=== PATIENT | female | born 1955 | race Caucasian/White ===

== ENCOUNTER 2017-01-18 09:55 | Inpatient (IN) | payer BC, OTHER ==
[2017-01-18] VITALS (9 sets, daily range): BP systolic 82–132; BP diastolic 51–66; PULSE 98–116; RESP 18–20; TEMP 98.3–98.4; O2SAT 96–100
[~2017-01-18] VITALS: Ht 154.9 cm; Wt 62.5 kg
[2017-01-18] MEDS ORDERED: SODIUM CHLOR 0.9% 1000 ML INJ 1,000 ML IV SCH ×2 (10:29→13:14)
[2017-01-18] MEDS ORDERED: SODIUM CHLORIDE 0.9% FLUSH 5 ML FLUSH IV FLUSH PRN (10:30)
[2017-01-18] MEDS ORDERED: SERT-129 PO (10:33)
[2017-01-18] MEDS ORDERED: XANA0.5T2 PO (10:33)
[2017-01-18] MEDS ORDERED: HYDR12.57 PO (10:33)
[2017-01-18] MEDS ORDERED: LISI10TA3 PO (10:33)
[2017-01-18] MEDS ORDERED: CLON1TAB PO (10:33)
[2017-01-18] MEDS ORDERED: PERC10TA27 PO (10:33)
[2017-01-18] MEDS ORDERED: WELLTAB39 PO (10:33)
--- NOTE | 2017-01-18 10:40 | PD ---
HPI Chief Complaint: Altered Mental Status Time Seen by Provider: 10:29 Travel History International Travel<30 days: No Contact w/Intl Traveler<30days: No Traveled to known affect area: No History of Present Illness HPI This is a 61-year-old female with a history of depression, psychosis, chronic pain of the neck and low back, who presents today with complaints of altered sensorium. The patient is a retired pharmacist and she is here with her . states over the last 2 weeks she's become more confused and not acting her normal self. He states that one point she was talking to the TV. She does not recall any of this. The patient is on depression medications as well as pain medication. She did not change any of her doses. She did report that her pain management doctor did start her on nortriptyline however she only took one tablet and then stopped taking it because she didn't like the way it made her feel. The patient denies any fevers, chills. There are no other complaints at the time my examination. 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 She states that she does not abuse Fioricet since being treated several years ago. However, patient does report that she does take Percocet daily. She denies any change of her dose at this point. PFSH Past Medical History ?: Not Social History Alcohol Use: No Tobacco Use: No Substance Use: Yes (former addict) Allergies-Medications (Allergen,Severity, Reaction): Coded Allergies: No Known Allergies (Unverified , 01/18/17) Reported Meds & Prescriptions Reported Meds & Active Scripts Active Reported Lisinopril 10 Mg Tab 10 Mg PO DAILY Percocet (Oxycodone-Acetaminophen) 10-325 mg Tab 1 Tab PO Q6H PRN Xanax Xr 24 HR (Alprazolam) 0.5 Mg Tab 0.5 Mg PO HS Take tablet intact, preferably in the morning. Clonazepam 1 Mg Tab 1 Mg PO DIRECTED Wellbutrin Xl 24 HR (Bupropion HCl) 300 Mg Tab 300 Mg PO DAILY Sertraline (Sertraline HCl) 100 Mg Tab 150 Mg PO DAILY Hydrochlorothiazide 12.5 Mg Cap 12.5 Mg PO DAILY Review of Systems Except as stated in HPI: all other systems reviewed are Neg Eyes: No: Diploplia, Blurred Vision HENT: Positive: Neck Pain, No: Headaches, Lightheadedness Cardiovascular: No: Chest Pain or Discomfort, Palpitations, Irregular Rhythm Respiratory: Positive: Cough (occasional), No: Shortness of Breath Gastrointestinal: No: Nausea, Vomiting, Abdominal Pain Genitourinary: No: Frequency, Dysuria Musculoskeletal: Positive: Pain (chronic neck and back pain), No: Weakness Neurologic: Positive: Syncope (several syncopal episodes), Change in Mentation , No: Weakness, Dizziness, Focal Abnormalities, Headache, Seizures, Sensory Disturbance Psychiatric: Positive: Depression, Other (episodes where she is talking to the TV.), No: Substance Abuse (history of in past) Physical Exam Narrative GENERAL: Well-developed well-nourished female in no acute respiratory distress. She does appear somewhat anxious. SKIN: Focused skin assessment warm/dry. HEAD: Atraumatic. Normocephalic. EYES: Pupils equal and round. No scleral icterus. No injection or drainage. ENT: No nasal bleeding or discharge. Mucous membranes pink and moist. NECK: Trachea midline. Supple. CARDIOVASCULAR: Tachycardic with normal rhythm. No murmur appreciated. RESPIRATORY: No accessory muscle use. Clear to auscultation. Breath sounds equal bilaterally. GASTROINTESTINAL: Abdomen soft, non-tender, nondistended. MUSCULOSKELETAL: No obvious deformities. No clubbing. No cyanosis. No edema. NEUROLOGICAL: Awake and somewhat confused. No obvious cranial nerve deficits. Motor grossly within normal limits. Normal speech. Anxious appearing PSYCHIATRIC: Anxious appearing. Nonpsychotic. Data Data Last Documented VS Vital Signs Date Time Temp Pulse Resp B/P Pulse Ox O2 Delivery O2 Flow Rate FiO2 01/18/17 12:00 100 18 87/52 96 Room Air 01/18/17 09:56 98.4 Orders Electrocardiogram (01/18/17 ) Ammonia (01/18/17 10:29) Complete Blood Count With Diff (01/18/17 10:29) Comprehensive Metabolic Panel (01/18/17 10:29) Creatine Kinase (Cpk) (01/18/17 10:29) Troponin I (01/18/17 10:29) Thyroid Stimulating Hormone (01/18/17 10:29) Urinalysis - C+S If Indicated (01/18/17 10:29) Chest, Single Ap (01/18/17 10:29) Ct Brain W/O Iv Contrast(Rout) (01/18/17 10:29) Blood Glucose (01/18/17 10:29) Ecg Monitoring (01/18/17 10:29) Iv Access Insert/Monitor (01/18/17 10:29) Oximetry (01/18/17 10:29) Sodium Chloride 0.9% Flush (Ns Flush) (01/18/17 10:30) Sodium Chlor 0.9% 1000 Ml Inj (Ns 1000 M (01/18/17 10:29) Drug Screen, Random Urine (01/18/17 10:29) Alcohol (Ethanol) (01/18/17 10:29) Urine Culture (01/18/17 10:55) CKMB (01/18/17 10:36) CKMB% (01/18/17 10:36) Specimen To Be Collected PRN (01/18/17 13:14) Specimen To Be Collected PRN (01/18/17 13:14) Specimen To Be Collected PRN (01/18/17 13:14) Specimen To Be Collected PRN (01/18/17 13:14) Creatinine, Random Urine (01/18/17 13:14) Sodium, Random Urine (01/18/17 13:14) Osmolality, Urine (01/18/17 13:14) Basic Metabolic Panel (Bmp) (01/18/17 13:14) Osmolality,Serum (01/18/17 13:14) Urine For Eosinophils (01/18/17 13:14) Ua Includes Microscopic (01/18/17 13:14) Us Kidney/Renal/Bladder (01/18/17 ) Tylenol (Acetaminophen) (01/18/17 13:14) Salicylates (Aspirin) (01/18/17 13:14) Cbc No Diff, Includes Plts (01/19/17 05:00) Cbc No Diff, Includes Plts (01/20/17 05:00) Cbc No Diff, Includes Plts (01/21/17 05:00) Cbc No Diff, Includes Plts (01/22/17 05:00) Cbc No Diff, Includes Plts (01/23/17 05:00) Cbc No Diff, Includes Plts (01/24/17 05:00) Cbc No Diff, Includes Plts (01/25/17 05:00) Basic Metabolic Panel (Bmp) (01/19/17 05:00) Basic Metabolic Panel (Bmp) (01/20/17 05:00) Basic Metabolic Panel (Bmp) (01/21/17 05:00) Basic Metabolic Panel (Bmp) (01/22/17 05:00) Basic Metabolic Panel (Bmp) (01/23/17 05:00) Basic Metabolic Panel (Bmp) (01/24/17 05:00) Basic Metabolic Panel (Bmp) (01/25/17 05:00) Inpatient Certification (01/18/17 13:14) Bedside Glucose VERÓNICA.Q6H (01/18/17 13:14) Blood Glucose Goal (Criteria) (01/18/17 13:14) Hypoglycemia 51 - 69 Mg/Dl (01/18/17 13:14) Hypoglycemia 50 Mg/Dl Or < (01/18/17 13:14) Notify Dr: Other (01/18/17 13:14) Dextrose 50% In [place] (Vial) Inj (D50w (Vi (01/18/17 13:15) Insulin Human Reg Supp Scale (Novolin R (01/18/17 18:00) Neuro Checks VERÓNICA.Q1H (01/18/17 13:14) Arterial Blood Gas (Abg) (01/18/17 13:14) Urinary Catheter Management VERÓNICA.Q1H (01/18/17 13:14) Code Status (01/18/17 13:14) Activity Bed Rest (01/18/17 13:14) Elevate Head Of Bed (01/18/17 13:14) Diet Npo (01/18/17 Lunch) Sodium Chlor 0.9% 1000 Ml Inj (Ns 1000 M (01/18/17 13:14) Ondansetron Inj (Zofran Inj) (01/18/17 13:15) Albuterol-Ipratropium Neb (Duoneb Neb) (01/18/17 13:15) Pt Request For Service (01/18/17 13:14) Heparin Inj (Heparin Inj) (01/18/17 14:00) Scd Bilateral/Knee High VERÓNICA.BID (01/18/17 13:14) ^ Initiate Protocol (01/18/17 13:14) Instruction (01/18/17 13:14) [facility] [place] [facility] Information (01/18/17 13:15) Chlorhexidine 2% Cloth (Chlorhexidine 2% (01/19/17 04:00) Chlorhexidine 2% Cloth (Chlorhexidine 2% (01/18/17 13:15) [facility]sa Pcr Surveillance (01/18/17 13:14) Docusate Sodium-Senna (Tona-Colace) (01/18/17 21:00) Consult Nephrology (01/18/17 ) Complement C3 (01/18/17 13:14) Complement C4 (01/18/17 13:14) Ceftriaxone Inj (Rocephin Inj) (01/18/17 14:00) Admit Order (Ed Use Only) (01/18/17 13:25) Lactic Acid Sepsis Protocol (01/18/17 13:25) Magnesium (Mg) (01/19/17 06:00) Magnesium (Mg) (01/20/17 06:00) Magnesium (Mg) (01/21/17 06:00) Magnesium (Mg) (01/22/17 06:00) Magnesium (Mg) (01/23/17 06:00) Magnesium (Mg) (01/24/17 06:00) Magnesium (Mg) (01/25/17 06:00) Phosphorus (Po4) (01/19/17 06:00) Phosphorus (Po4) (01/20/17 06:00) Phosphorus (Po4) (01/21/17 06:00) Phosphorus (Po4) (01/22/17 06:00) Phosphorus (Po4) (01/23/17 06:00) Phosphorus (Po4) (01/24/17 06:00) Phosphorus (Po4) (01/25/17 06:00) Creatine Kinase (Cpk) (01/19/17 06:00) Labs Laboratory Tests Test 01/18/17 01/18/17 01/18/17 10:36 10:55 11:35 White Blood Count 11.2 TH/MM3 Red Blood Count 3.39 MIL/MM3 Hemoglobin 9.9 GM/DL Hematocrit 31.3 % Mean Corpuscular Volume 92.1 FL Mean Corpuscular Hemoglobin 29.3 PG Mean Corpuscular Hemoglobin 31.8 % Concent Red Cell Distribution Width 14.5 % Platelet Count 325 TH/MM3 Mean Platelet Volume 8.8 FL Neutrophils (%) (Auto) 80.1 % Lymphocytes (%) (Auto) 10.1 % Monocytes (%) (Auto) 7.9 % Eosinophils (%) (Auto) 1.5 % Basophils (%) (Auto) 0.4 % Neutrophils # (Auto) 8.9 TH/MM3 Lymphocytes # (Auto) 1.1 TH/MM3 Monocytes # (Auto) 0.9 TH/MM3 Eosinophils # (Auto) 0.2 TH/MM3 Basophils # (Auto) 0.0 TH/MM3 CBC Comment DIFF FINAL Differential Comment Sodium Level 131 MEQ/L Potassium Level 5.4 MEQ/L Chloride Level 101 MEQ/L Carbon Dioxide Level 19.7 MEQ/L Anion Gap 10 MEQ/L Blood Urea Nitrogen 83 MG/DL Creatinine 5.61 MG/DL Estimat Glomerular Filtration 8 ML/MIN Rate Random Glucose 98 MG/DL Calcium Level 9.5 MG/DL Total Bilirubin 0.3 MG/DL Aspartate Amino Transf 41 U/L (AST/SGOT) Alanine Aminotransferase 48 U/L (ALT/SGPT) Alkaline Phosphatase 126 U/L Total Creatine Kinase 838 U/L Creatine Kinase MB 24.4 NG/ML Creatine Kinase MB % 2.9 % Troponin I LESS THAN 0.02 NG/ML Total Protein 7.8 GM/DL Albumin 2.8 GM/DL Thyroid Stimulating Hormone 0.009 uIU/ML 3rd Gen Ethyl Alcohol Level LESS THAN 3 MG/DL Urine Color YELLOW Urine Turbidity CLOUDY Urine pH 5.5 Urine Specific [place] 1.021 Urine Protein 100 mg/dL Urine Glucose (UA) NEG mg/dL Urine Ketones NEG mg/dL Urine Occult Blood MOD Urine Nitrite NEG Urine Bilirubin NEG Urine Urobilinogen LESS THAN 2.0 MG/DL Urine Leukocyte Esterase LARGE Urine RBC 47 /hpf Urine WBC /hpf Urine WBC Clumps MANY Urine Squamous Epithelial 26 /hpf Cells Urine Transitional Epithelial 1 /hpf Cells Urine Bacteria MANY /hpf Urine Hyaline Casts 14 /lpf Microscopic Urinalysis Comment CATH-CULTURE IND Ammonia LESS THAN 10 [facility]/L [facility] Medical Decision Making Medical Screen Exam Complete: Yes Emergency Medical Condition: Yes Differential Diagnosis Psychosis versus metabolic derangement versus withdrawal versus substance induced mood disorder Narrative Course 61-year-old female presents with altered mental status progressive over 2 weeks. Patient's 's concern that she may have something serious wrong with her. The patient has a history of chronic pain. She also has a history of thyroid nodule. Patient has multiple electrolyte abnormalities including acute kidney injury. The patient also has hypotension and will be started on Levothroid. She also has a urinary tract infection. Hemoglobin is 9.9. TSH is extremely low which indicates hyperthyroidism. The patient is been discussed with Dr. Dustin James, information technology director, who agrees with admission. We have started her on Rocephin. Blood cultures are pending at this time. Lactic acid has also been ordered. Critical Care Narrative Aggregate critical care time was 45 minutes. Time to perform other separately billable procedures was not included in the critical care time. My time did not include minutes spent treating any other patients simultaneously or on activities that did not directly contribute to the patient's treatment. The services I provided to this patient were to treat and/or prevent clinically significant deterioration that could result in: I provided critical care services requiring my management, as noted below: Chart data review, documentation time, medication orders and management, vital sign assessments/reviewing monitor data, ordering and reviewing lab tests, ordering and interpreting/reviewing x-rays and diagnostic studies, care of the patient and discussion of the patient with the admitting physicians. Diagnosis Primary Impression: Sepsis Additional Impressions: Acute kidney injury Anemia UTI (urinary tract infection) Admitting Information Admitting Physician Requests: Admit René Zhang MD Jan 18, 2017 10:40
--- NOTE | 2017-01-18 11:01 | RADRPT ---
EXAM DATE/TIME: 01/18/2017 10:39 [facility] COMPARISON: No previous studies available for comparison. INDICATIONS : Syncope. MEDICAL HISTORY : None. SURGICAL HISTORY : None. ENCOUNTER: Initial ACUITY: 1 day PAIN SCORE: 0/10 LOCATION: Bilateral chest FINDINGS: A single view of the chest demonstrates the lungs to be symmetrically aerated without evidence of mas s, infiltrate or effusion. The cardiomediastinal contours are unremarkable. Osseous structures are intact. CONCLUSION: Normal examination. Addison James Jr., MD on January 18, 2017 at 11:00 Board Certified Radiologist. This report was verified electronically.
[2017-01-18 11:20] LABS: AUTOMATED NEUTROPHIL # 8.9 TH/MM3 (1.8-7.7); BASOPHIL % 0.4 % (0.0-2.0); EOSINOPHIL # 0.2 TH/MM3 (0-0.4); EOSINOPHIL % 1.5 % (0.0-4.0); HEMATOCRIT 31.3 % (35.0-46.0); HEMO FLAGS DIFF FINAL; LYMPH % 10.1 % (9.0-44.0); LYMPHOCYTE # 1.1 TH/MM3 (1.0-4.8); MEAN CELL VOLUME 92.1 FL (80.0-100.0); MEAN CORPUSCULAR HEMOGLOBIN 29.3 PG (27.0-34.0); MEAN CORPUSCULAR HGB CONC 31.8 % (32.0-36.0); MONO % 7.9 % (0.0-8.0); NEUT % 80.1 % (16.0-70.0); PLATELET COUNT 325 TH/MM3 (150-450); RED BLOOD COUNT 3.39 MIL/MM3 (4.00-5.30); RED CELL DISTRIBUTION WIDTH 14.5 % (11.6-17.2); WHITE BLOOD COUNT 11.2 TH/MM3 (4.0-11.0)
--- NOTE | 2017-01-18 11:24 | RADRPT ---
EXAM DATE/TIME: 01/18/2017 11:04 [facility] COMPARISON: No previous studies available for comparison. INDICATIONS : Altered mental status. RADIATION DOSE: 56.77 CTDIvol (mGy) MEDICAL HISTORY : None SURGICAL HISTORY : None. ENCOUNTER: Initial ACUITY: 1 day PAIN SCALE: 0/10 LOCATION: cranial TECHNIQUE: Multiple contiguous axial images were obtained of the head. Using automated exposure control and adj ustment of the mA and/or kV according to patient size, radiation dose was kept as low as reasonably a chievable to obtain optimal diagnostic quality images. DICOM format image data is available electro nically for review and comparison. FINDINGS: CEREBRUM: The ventricles are normal for age. No evidence of midline shift, mass lesion, hemorrhage or acute in farction. No extra-axial fluid collections are seen. POSTERIOR FOSSA: The cerebellum and brainstem are intact. The 4th ventricle is midline. The cerebellopontine angle i s unremarkable. EXTRACRANIAL: The visualized portion of the orbits is intact. SKULL: The calvaria is intact. No evidence of skull fracture. CONCLUSION: Normal examination. Addison James Jr., MD on January 18, 2017 at 11:19 Board Certified Radiologist. This report was verified electronically.
[2017-01-18 11:37] LABS: BACTERIA, URINE MANY /hpf; BLOOD, URINE MOD (NEG); GLUCOSE,URINE NEG (NEG); HYALINE CAST, URINE 14 /lpf (RARE); KETONE, URINE NEG (NEG); NITRITE,URINE NEG (NEG); PH, URINE 5.5 (5.0-8.5); SQUAMOUS EPITHELIAL CELL URINE 26 /hpf (0-5); TRANSITIONAL EPI CELLS, URINE 1 /hpf; URINE COLOR YELLOW (YELLW/STRAW)
[2017-01-18 11:38] LABS: COMMENT (UR) CATH-CULTURE IND; CULTURE IF INDICATED CATH CULTURE IND
[2017-01-18 11:39] LABS: ALT (GPT) 48 U/L (10-53); ANION GAP 10 MEQ/L (5-15); AST (GOT) 41 U/L (15-37); BICARBONATE 19.7 MEQ/L (21.0-32.0); BLOOD UREA NITROGEN 83 MG/DL (7-18); CHLORIDE 101 MEQ/L (98-107); GLOMERULAR FILTRATION RATE 8 ML/MIN (>89); POTASSIUM 5.4 MEQ/L (3.5-5.1); SODIUM (NA) 131 MEQ/L (136-145)
[2017-01-18 11:45] LABS: ALKALINE PHOSPHATASE 126 U/L (45-117); CREATINE KINASE 838 U/L (26-192); TOTAL BILIRUBIN ADULT 0.3 MG/DL (0.2-1.0)
[2017-01-18 11:59] LABS: CKMB 24.4 NG/ML (0.5-3.6)
--- NOTE | 2017-01-18 12:37 | EKG ---
Date Performed: 01/18/2017 Time Performed: 10:31:03 PTAGE: 61 years EKG: SINUS TACHYCARDIA WITH SHORT ID INTERVAL ABNORMAL RHYTHM ECG NO PREVIOUS TRACING DOCTOR: Thien Curry Interpretating Date/Time 01/18/2017 12:35:23
[2017-01-18] MEDS ORDERED: MISCELLANEOUS NURSING INFORMATION XX SCH (13:15)
[2017-01-18] MEDS ORDERED: CHLORHEXIDINE GLUCONATE 2 % 1 PACK (2 CLOTHS) TOP PRN (13:15)
[2017-01-18] MEDS ORDERED: RESP: ALBUTEROL 2.5 MG/IPRATROPIUM 0.5 MG NEB (PRN) INH (13:15)
[2017-01-18] MEDS ORDERED: DEXTROSE 50% IN WATER 50 ML VIAL(D50) IV PUSH PRN (13:15)
[2017-01-18] MEDS ORDERED: ONDANSETRON HCL 4 MG/2 ML VIAL IV PRN (13:15)
--- NOTE | 2017-01-18 13:36 | HHI.HP ---
HPI Service Critical Care Medicine Primary Care Physician Reginald Borges MD Admission Diagnosis SEPSIS, Acute kidney injury, hyperthyroidism, anemiam, uti Diagnosis: Travel History International Travel<30 Days: No Contact w/Intl Traveler <30 Da: No Traveled to Known Affected Are: No History of Present Illness acute renal failure Past Family Social History Allergies: Coded Allergies: No Known Allergies (Unverified , 01/18/17) Physical Exam Vital Signs Vital Signs Date Time Temp Pulse Resp B/P Pulse Ox O2 Delivery O2 Flow Rate FiO2 01/18/17 12:00 100 18 87/52 96 Room Air 01/18/17 11:15 110 18 89/52 98 Room Air 01/18/17 10:33 112 18 82/51 97 Room Air 01/18/17 10:21 119 20 100 Room Air 01/18/17 09:56 98.4 125/59 Room Air Laboratory Laboratory Tests Test 01/18/17 01/18/17 01/18/17 10:36 10:55 11:35 White Blood Count 11.2 Red Blood Count 3.39 Hemoglobin 9.9 Hematocrit 31.3 Mean Corpuscular Volume 92.1 Mean Corpuscular Hemoglobin 29.3 Mean Corpuscular Hemoglobin 31.8 Concent Red Cell Distribution Width 14.5 Platelet Count 325 Mean Platelet Volume 8.8 Neutrophils (%) (Auto) 80.1 Lymphocytes (%) (Auto) 10.1 Monocytes (%) (Auto) 7.9 Eosinophils (%) (Auto) 1.5 Basophils (%) (Auto) 0.4 Neutrophils # (Auto) 8.9 Lymphocytes # (Auto) 1.1 Monocytes # (Auto) 0.9 Eosinophils # (Auto) 0.2 Basophils # (Auto) 0.0 CBC Comment DIFF FINAL Differential Comment Sodium Level 131 Potassium Level 5.4 Chloride Level 101 Carbon Dioxide Level 19.7 Anion Gap 10 Blood Urea Nitrogen 83 Creatinine 5.61 Estimat Glomerular Filtration 8 Rate Random Glucose 98 Calcium Level 9.5 Total Bilirubin 0.3 Aspartate Amino Transf 41 (AST/SGOT) Alanine Aminotransferase 48 (ALT/SGPT) Alkaline Phosphatase 126 Total Creatine Kinase 838 Creatine Kinase MB 24.4 Creatine Kinase MB % 2.9 Troponin I LESS THAN 0.02 Total Protein 7.8 Albumin 2.8 Thyroid Stimulating Hormone 0.009 3rd Gen Ethyl Alcohol Level LESS THAN 3 Urine Color YELLOW Urine Turbidity CLOUDY Urine pH 5.5 Urine Specific [place] 1.021 Urine Protein 100 Urine Glucose (UA) NEG Urine Ketones NEG Urine Occult Blood MOD Urine Nitrite NEG Urine Bilirubin NEG Urine Urobilinogen LESS THAN 2.0 Urine Leukocyte Esterase LARGE Urine RBC 47 Urine WBC Urine WBC Clumps MANY Urine Squamous Epithelial 26 Cells Urine Transitional Epithelial 1 Cells Urine Bacteria MANY Urine Hyaline Casts 14 Microscopic Urinalysis Comment CATH-CULTURE IND Ammonia LESS THAN 10 Date/Time Procedure Status Source Growth 01/18/17 10:55 Urine Culture Received Urine Catheterized Urine Pending Result Diagram: 01/18/17 1036 01/18/17 1036 Héctor Joe MD Jan 18, 2017 13:36
[2017-01-18 14:28] LABS: ACETAMINOPHEN LESS THAN 2.0 MCG/ML (10.0-30.0); ANION GAP 10 MEQ/L (5-15); BICARBONATE 17.5 MEQ/L (21.0-32.0); BLOOD UREA NITROGEN 77 MG/DL (7-18); CHLORIDE 110 MEQ/L (98-107); GLOMERULAR FILTRATION RATE 10 ML/MIN (>89); POTASSIUM 5.5 MEQ/L (3.5-5.1); SODIUM (NA) 137 MEQ/L (136-145)
[2017-01-18 14:59] LABS: BLOOD GAS BASE EXCESS -9.3 mmol/L (-2-2); BLOOD GAS CARBOXYHEMOGLOBIN 0.9 % (0-4); BLOOD GAS HCO3 15 mmol/L (22-26); BLOOD GAS METHEMOGLOBIN 0.9 % (0-2); BLOOD GAS O2 HGB SATURATION 95 % (90-100); BLOOD GAS OXYGEN CONTENT 16.2 Vol % (12.0-20.0); BLOOD GAS PCO2 29 mmHg (38-42); BLOOD GAS PO2 88 mmHG (61-120); BLOOD GAS TOTAL HGB 12.2 G/DL (12.0-16.0); CRITICAL VALUE YES; DRAW SITE RT RADIAL; FIO2 21 %; NUMBER OF ARTERIAL PUNCTURES 1; OXYGEN DEVICE ROOM AIR; STAT YES; TEMP CORR TO 98.6; ULNAR PULSE PRESENT
[2017-01-18] MEDS ORDERED: TERBUTALINE INJ 1 MG/ML AMP SQ PRN (15:00)
[2017-01-18] MEDS ORDERED: NOREPINEPHRINE-DEXTROSE DRIP 250 ML IV SCH (15:00)
[2017-01-18] MEDS: cefTRIAXone INJ 1,000 MG in SODIUM CHLORIDE 0.9% INJ 100 ML IV SCH (15:59)
[2017-01-18] MEDS: HEPARIN SODIUM - SQ 10,000 UNITS/ML VIAL SQ SCH (16:00)
[2017-01-18] MEDS ORDERED: SODIUM CHLOR 0.9% 1000 ML INJ 1,000 ML IV ONE ×2 (16:45→17:00)
--- NOTE | 2017-01-18 16:45 | HHI.HP ---
[facility] Service Critical Care Medicine Primary Care Physician Reginald Borges MD Admission Diagnosis SEPSIS, Acute kidney injury, hyperthyroidism, anemiam, uti Diagnosis: (1) Acute kidney failure Diagnosis: Principal (2) Hypotension Diagnosis: Principal (3) Sepsis Diagnosis: Principal (4) UTI (urinary tract infection) Diagnosis: Principal (5) Hyperkalemia Diagnosis: Principal (6) Rhabdomyolysis Diagnosis: Principal (7) Suppressed TSH Diagnosis: Principal (8) Acute psychosis Diagnosis: Principal (9) Anemia Diagnosis: Secondary (10) Depression Diagnosis: Secondary (11) Proteinuria Diagnosis: Secondary (12) Psychosis Diagnosis: Secondary (13) Hypertension Diagnosis: Secondary (14) Chronic pain Diagnosis: Secondary Chief Complaint: Altered mentation UTI Travel History International Travel<30 Days: No Contact w/Intl Traveler <30 Da: No Traveled to Known Affected Are: No Sepsis Criteria SIRS Criteria (2 or more): Heart rate over 90, RR > 20 or PaCO2 < 32 Sepsis Criteria (SIRS+source): Infect source susp/known Severe Sepsis (+one): Hypotension Criteria Outcome: Meets sepsis criteria History of Present Illness This is a 61-year-old female with a history of depression, psychosis, chronic pain, history of thyroid nodule, and hypertension who presented with complaints of altered sensorium. Most of my history is obtained from talking to the patient herself and reviewing the ER notes. I was unable to get in touch with her . 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 According to ER note, over the last 2 weeks she's become more confused. Patient states that her was worried that she was talking to people who were not there. The patient denies any fevers, chills. 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 Patient had so far received 2 L normal saline fluid boluses when I saw her in the ED. UA showed urinary tract infection. Hemoglobin is 9.9, wbc 11.2, Na 131, K 5.4, BUN/Cr83/5.6, CPK 838. TSH 0.09 was suppressed but T4 normal indicating subclinical hypothyroidism. I doubt her subclinical hyperthyroidism is playing any part in her presentation and this can be followed as outpatient. Prior to my evaluation of the patient, a Pierce catheter was placed and approximately 1.5 L immediate urine output. Renal ultrasound had been done, results are pending. Patient received a dose of Rocephin which will be continued daily. Additional 2 L IV fluid boluses ordered Review of Systems ROS Limitations: Other (as per HPI) Past Family Social History Allergies: Coded Allergies: No Known Allergies (Unverified , 01/18/17) Past Medical History Probable history of chronic kidney disease Hypertension Psychiatric history including depression and psychosis Past Surgical History No major surgeries per patient Reported Medications Lisinopril 10 Mg Tab 10 Mg PO DAILY Percocet (Oxycodone-Acetaminophen) 10-325 mg Tab 1 Tab PO Q6H PRN Xanax Xr 24 HR (Alprazolam) 0.5 Mg Tab 0.5 Mg PO HS Clonazepam 1 Mg Tab 1 Mg PO DIRECTED Wellbutrin Xl 24 HR (Bupropion HCl) 300 Mg Tab 300 Mg PO DAILY Sertraline (Sertraline HCl) 100 Mg Tab 150 Mg PO DAILY Hydrochlorothiazide 12.5 Mg Cap 12.5 Mg PO DAILY Active Ordered Medications Reviewed Family History Father of glioblastoma Mother of coronary event Social History Smokes half packs of cigarettes daily No significant alcohol use History of Fioricet addiction Physical Exam Vital Signs Vital Signs Date Time Temp Pulse Resp B/P Pulse Ox O2 Delivery O2 Flow Rate FiO2 01/18/17 15:00 98 18 106/58 100 Room Air 01/18/17 12:00 100 18 87/52 96 Room Air 01/18/17 11:15 110 18 89/52 98 Room Air 01/18/17 10:33 112 18 82/51 97 Room Air 01/18/17 10:21 119 20 100 Room Air 01/18/17 09:56 98.4 125/59 Room Air Physical Exam GENERAL: Well-developed well-nourished female in no acute respiratory distress, but tearful SKIN: Skin warm/dry. HEAD: Atraumatic. Normocephalic. EYES: Pupils equal and round. ENT: Mucous membranes dry. Airway patent NECK: Trachea midline. Supple. CARDIOVASCULAR: Tachycardic with normal rhythm. No murmur appreciated. RESPIRATORY: No accessory muscle use. Clear to auscultation. Breath sounds equal bilaterally. GASTROINTESTINAL: Abdomen soft, non-tender, nondistended. MUSCULOSKELETAL: No obvious deformities. No clubbing. No cyanosis. No edema. NEUROLOGICAL: Awake and aler otiented x3. Anxious and tearful, worried that she had a psychiatric break down. No obvious cranial nerve deficits. Motor grossly within normal limits. Laboratory Laboratory Tests Test 01/18/17 01/18/17 01/18/17 01/18/17 10:36 10:55 11:35 14:00 White Blood Count 11.2 Red Blood Count 3.39 Hemoglobin 9.9 Hematocrit 31.3 Mean Corpuscular Volume 92.1 Mean Corpuscular Hemoglobin 29.3 Mean Corpuscular Hemoglobin 31.8 Concent Red Cell Distribution Width 14.5 Platelet Count 325 Mean Platelet Volume 8.8 Neutrophils (%) (Auto) 80.1 Lymphocytes (%) (Auto) 10.1 Monocytes (%) (Auto) 7.9 Eosinophils (%) (Auto) 1.5 Basophils (%) (Auto) 0.4 Neutrophils # (Auto) 8.9 Lymphocytes # (Auto) 1.1 Monocytes # (Auto) 0.9 Eosinophils # (Auto) 0.2 Basophils # (Auto) 0.0 CBC Comment DIFF FINAL Differential Comment Sodium Level 131 137 Potassium Level 5.4 5.5 Chloride Level 101 110 Carbon Dioxide Level 19.7 17.5 Anion Gap 10 10 Blood Urea Nitrogen 83 77 Creatinine 5.61 4.53 Estimat Glomerular Filtration 8 10 Rate Random Glucose 98 90 Calcium Level 9.5 8.4 Total Bilirubin 0.3 Aspartate Amino Transf 41 (AST/SGOT) Alanine Aminotransferase 48 (ALT/SGPT) Alkaline Phosphatase 126 Total Creatine Kinase 838 Creatine Kinase MB 24.4 Creatine Kinase MB % 2.9 Troponin I LESS THAN 0.02 Total Protein 7.8 Albumin 2.8 Thyroid Stimulating Hormone 0.009 3rd Gen Ethyl Alcohol Level LESS THAN 3 Urine Color YELLOW Urine Turbidity CLOUDY Urine pH 5.5 Urine Specific [place]ie 1.021 Urine Protein 100 Urine Glucose (UA) NEG Urine Ketones NEG Urine Occult Blood MOD Urine Nitrite NEG Urine Bilirubin NEG Urine Urobilinogen LESS THAN 2.0 Urine Leukocyte Esterase LARGE Urine RBC 47 Urine WBC Urine WBC Clumps MANY Urine Squamous Epithelial 26 Cells Urine Transitional Epithelial 1 Cells Urine Bacteria MANY Urine Hyaline Casts 14 Microscopic Urinalysis Comment CATH-CULTURE IND Ammonia LESS THAN 10 Serum Osmolality 308 Lactic Acid Level 0.3 Salicylates Level LESS THAN 1.7 Acetaminophen Level LESS THAN 2.0 Complement C3 154 Complement C4 36 Test 01/18/17 14:45 Blood Gas Puncture Site RT RADIAL Blood Gas Patient Temperature 98.6 Blood Gas HCO3 15 Blood Gas Base Excess -9.3 Blood Gas Oxygen Saturation 95 Arterial Blood pH 7.34 Arterial Blood Partial 29 Pressure CO2 Arterial Blood Partial 88 Pressure O2 Arterial Blood Oxygen Content 16.2 Arterial Blood 0.9 Carboxyhemoglobin Arterial Blood Methemoglobin 0.9 Blood Gas Hemoglobin 12.2 Oxygen Delivery Device ROOM AIR Blood Gas Inspired Oxygen 21 Date/Time Procedure Status Source Growth 01/18/17 10:55 Urine Culture Received Urine Catheterized Urine Pending Result Diagram: 01/18/17 1036 01/18/17 1400 Imaging Chest x-ray and CT head unremarkable Septic Shock Reassessment Heart: Other (tachycardic) Skin: Dry Peripheral Pulses: Bounding Right Radial Bounding Left Radial Capillary Refill: >2 seconds Assessment and Plan Assessment and Plan NEURO: Metabolic encephalopathy Acute psychosis Chronic pain - Patient has history of psychiatric illness/psychosis - Her behavior is more consistent with acute psychosis than sepsis related metabolic encephalopathy - Minimize sedation, consult psychiatry - Continue home Percocet for pain - Use Haldol if needed for acute psychosis RESP: - Nasal cannula oxygen - DuoNeb every 6 hours when necessary - Tobacco cessation CV: Hypotension - Hypotension seems to be secondary to dehydration and sepsis - Total 4 L of IV fluid boluses and 84 mL per hour - Lactic acid is normal GI: - Renal diet, IV Protonix : Acute kidney failure History of proteinuria - Monitor renal function closely. Pierce catheter. - Renal US and further work up pending. Defer to nephrology - UO 1.5 L after placement of Pierce indicating obstructive component. Dehydration and sepsis/ATN contributing ID: Sepsis UTI - Continue Rocephin, await urine culture, blood culture HEME: - Monitor CBC, CMP ENDO: Suppressed TSH - Thyroid studies and thyroid nodule workup as outpatient, this has no impact on current clinical presentation - TSH is suppressed but T4 and T3 low normal - Mild hyperkalemia should improve with improvement in renal function - Repeat potassium at 8 PM PROPH: - Bilateral lower extremity SCDs. Heparin and Protonix LINES: - Utilize peripheral IVs, central line if needed CC time 35 min Code Status Full Discussed Condition With Patient, bedside RN Problem Qualifiers (1) Acute kidney failure: Qualified Code: N17.9 - Acute renal failure, unspecified acute renal failure type (2) Hypotension: Qualified Code: I95.9 - Hypotension, unspecified hypotension type (3) UTI (urinary tract infection): (4) Anemia: Qualified Code: D64.9 - Anemia, unspecified type (5) Depression: Qualified Code: F32.9 - Depression, unspecified depression type (6) Proteinuria: Qualified Code: R80.9 - Proteinuria, unspecified type (7) Psychosis: Qualified Code: F29 - Psychosis, unspecified psychosis type (8) Hypertension: Qualified Code: I10 - Hypertension, unspecified type (9) Chronic pain: Qualified Code: G89.29 - Other chronic pain Deon Frye MD Jan 18, 2017 16:44
[2017-01-18] MEDS ORDERED: oxyCODONE/ACETAMINOPHEN 10 MG/325 MG TAB PO PRN (17:00)
--- NOTE | 2017-01-18 17:29 | MB ---
cc: KARISSA WITT MD DATE OF CONSULTATION 01/18/17 REASON FOR CONSULTATION Elevated BUN and creatinine for evaluation. HISTORY OF PRESENT ILLNESS This is a 61-year-old female with a past medical history of hypertension, anxiety, depression with psychosis, history of chronic neck pain, history of some thyroid dysfunction who was brought to the hospital because of confusion and generalized weakness. I was called to see the patient because of very high BUN and creatinine. The patient denies any previous history of renal disease. We do not have any previous labs for her and, when she came in here, it was found that her creatinine was 5.6. The patient has already some improvement in the creatinine and she has a Pierce catheter and has started passing more urine. The creatinine now is 4.5. According to the patient, she has been sick for last two weeks and not eating well and has been having nausea off and on. She has been following with pain management because of pain in the neck and the upper back area. She was given Percocet and nortriptyline. She denies taking any nonsteroidal anti-inflammatory drugs. There is no history of diarrhea, but she admits that she has not been eating very good for the last two weeks. There is no history of dysuria, hematuria. Sometimes she has difficulty in passing urine and, according to the patient, she has to force herself to get the urine out and it was not coming out completely. There is no history of renal stone. PAST MEDICAL HISTORY 1. Hypertension, 2. Depression with psychosis. 3. History of some thyroid dysfunction. REVIEW OF SYSTEMS The patient has generalized weakness, feeling tired. Denies any history of fever, but she has generalized weakness, headache off and on, feeling dizzy and decreased appetite, not eating well, nausea. There is no vomiting, no abdominal pain, no history of diarrhea. No shortness of breath or chest pain. No dysuria or hematuria, has difficulty in passing urine. Denies taking any nonsteroidal anti-inflammatory drugs, has pain in the upper back and neck area. She was following with endocrinology for some thyroid dysfunction. SOCIAL HISTORY The patient is . She smokes 1-2 cigarettes per day. There is no history of heavy alcoholism. FAMILY HISTORY Negative for any renal disease. ALLERGIES She has no known drug allergies. MEDICATIONS Currently 1. Normal saline 84 an hour 2. Tona-Colace 1 tablet b.i.d. 3. Heparin 5000 units subcu q.12 h. 4. Ceftriaxone 1 gram q.24 h 5. Regular insulin sliding scale. 6. DuoNeb nebulizer PHYSICAL EXAMINATION GENERAL: The patient is awake, alert. She is not in acute distress. VITAL SIGNS: Last blood pressure is 87/52, temperature is 98.4, oxygen saturation on room air 96-98%. HEENT: Pupils equal, reacting to light. Nonicteric sclerae, conjunctivae pale. NECK: Supple. JVD is not elevated. LUNGS: The patient has bilateral good air entry with occasional wheezing. HEART: S1, S2 regular rhythm. ABDOMEN: Soft, lax. There is no tenderness. Bowel sounds positive. EXTREMITIES: She has mild edema in the legs. LABORATORY DATA WBC count is 11.2, hemoglobin 9.9, platelet count of 325, neutrophils 80.1%. Sodium 137. Potassium 5.5, chloride 110, bicarb 17.5, BUN 77, creatinine 4.53, osmolality 308. Lactic acid is 0.3. Calcium 8.4, ammonia less than 10, alkaline phosphatase 126, creatinine kinase 838. ____ 0.009. Calcium 9.5, AST is 41, ALT is 48. Urinalysis showing protein of 100, moderate occult blood, RBC 47, WBC innumerable. Toxicology screen showed salicylate and acetaminophen were less than 1.7 and 2.0. Ethyl alcohol was also less than three. C3, C4 were normal. IMAGING STUDIES Chest x-ray done shows lung zuñiga are clear. CT scan of the brain done without IV contrast also showed that there is no acute changes. Ultrasound of the kidneys was done and report is still pending. ASSESSMENT/PLAN 1. Acute kidney injury 2. Urinary tract infection. 3. Rule-out sepsis 4. Hypotension. 5. Dehydration. 6. Hyperkalemia and metabolic acidosis. The patient has most likely acute kidney injury. There is a possibility of some chronic kidney disease because of the hypertensive or renovascular disease. Now she has a Pierce catheter and she is passing urine. The creatinine has already started improving. The acute kidney injury is most likely because of either dehydration or possibility due to ATN because of the hypotension. She has normal complements. I will check the [place] and ANCA level and change the IV fluid with some sodium bicarbonate since she also had acidosis and hyperkalemia. Continue the antibiotic, follow the culture result and follow the urine output and the BUN and creatinine. Avoid any nephrotoxins. Thank you for this consultation. I will follow the patient while she is in the hospital. MD MARISABEL Aldridge/ /3:52 PM /5:13 PM
[2017-01-18] MEDS ORDERED: RESP: ALBUTEROL 2.5 MG/IPRATROPIUM 0.5 MG NEB (PRN) NEB (17:30)
[2017-01-18] MEDS: INSULIN NovoLIN REGULAR SUPPLEMENTAL SCALE SQ SCH (18:00)
--- NOTE | 2017-01-18 18:08 | RADRPT ---
EXAM DATE/TIME: 01/18/2017 13:36 [facility] COMPARISON: No previous studies available for comparison. INDICATIONS : Elevated Bun and Creatinine. MEDICAL HISTORY : Altered sensorium. Depression. SURGICAL HISTORY : None. ENCOUNTER: Initial ACUITY: 1 day PAIN SCORE: 3/10 LOCATION: Bilateral flank MEASUREMENTS: RIGHT KIDNEY: 9.5 x 5.1 x 5.4 cm LEFT KIDNEY: 9.2 x 4.4 x 5.3 cm FINDINGS: RIGHT KIDNEY: Renal cortex is normal in thickness and echotexture. No hydronephrosis, stone, or mass. LEFT KIDNEY: Renal cortex is normal in thickness and echotexture. No hydronephrosis, stone, or mass. BLADDER: Within normal limits given the degree of distension. CONCLUSION: Normal examination for a patient of this age. Edis Nichols MD on January 18, 2017 at 18:04 Board Certified Radiologist. This report was verified electronically.
[2017-01-18] MEDS: SODIUM BICARBONATE 8.4% INJ 50 MEQ in SODIUM CHLOR 0.45% 1000 ML INJ 1,000 ML IV SCH (20:05)
[2017-01-18] MEDS: DOCUSATE SODIUM 50 MG/SENNA 8.6 MG TAB PO SCH (21:00)
[2017-01-19] VITALS (10 sets, daily range): BP systolic 111–134; BP diastolic 67–90; PULSE 87–114; RESP 19–24; TEMP 97.2–98.7; O2SAT 96–100
[2017-01-19] MEDS ORDERED: CHLORHEXIDINE GLUCONATE 2 % 1 PACK (2 CLOTHS) TOP SCH (04:00)
[2017-01-19] MEDS: INSULIN NovoLIN REGULAR SUPPLEMENTAL SCALE SQ SCH ×4 (04:57→17:50)
[2017-01-19] MEDS: HEPARIN SODIUM - SQ 10,000 UNITS/ML VIAL SQ SCH ×2 (04:57→12:33)
[2017-01-19] MEDS: SODIUM BICARBONATE 8.4% INJ 50 MEQ in SODIUM CHLOR 0.45% 1000 ML INJ 1,000 ML IV SCH (04:58)
[2017-01-19 06:13] LABS: HEMATOCRIT 29.2 % (35.0-46.0); MEAN CELL VOLUME 90.9 FL (80.0-100.0); MEAN CORPUSCULAR HEMOGLOBIN 30.2 PG (27.0-34.0); MEAN CORPUSCULAR HGB CONC 33.2 % (32.0-36.0); PLATELET COUNT 282 TH/MM3 (150-450); RED BLOOD COUNT 3.22 MIL/MM3 (4.00-5.30); RED CELL DISTRIBUTION WIDTH 14.5 % (11.6-17.2); REVIEW FLAG FINAL; WHITE BLOOD COUNT 7.4 TH/MM3 (4.0-11.0)
[2017-01-19 07:06] LABS: BICARBONATE 19.3 MEQ/L (21.0-32.0); MAGNESIUM 2.7 MG/DL (1.5-2.5); POTASSIUM 4.4 MEQ/L (3.5-5.1)
[2017-01-19] MEDS ORDERED: SERTRALINE HCL 50 MG TAB PO SCH (09:45)
[2017-01-19] MEDS ORDERED: buPROPion HCL 150 MG SUSTAINED RELEASE TAB PO SCH (09:45)
[2017-01-19] MEDS ORDERED: clonazePAM 1 MG TAB PO SCH (09:45)
--- NOTE | 2017-01-19 10:01 | HHI.PR ---
Subjective Remarks Follow-up sepsis/UTI/acute renal failure/metabolic acidosis and acute psychosis 01/19/17-patient seen and examined, alert and oriented 3 however delusional and states she sees people come in after her. Vitals stable. Case discussed with psychiatry Dr. Matamoros Objective Vitals Vital Signs Date Time Temp Pulse Resp B/P Pulse Ox O2 Delivery O2 Flow Rate FiO2 01/19/17 08:00 95 01/19/17 08:00 98.0 95 22 120/69 96 01/19/17 06:00 93 01/19/17 04:00 96 01/19/17 04:00 97.6 96 24 133/90 99 01/19/17 02:00 100 01/19/17 00:00 97.2 114 24 129/80 100 01/19/17 00:00 114 01/18/17 22:00 116 01/18/17 20:00 114 01/18/17 19:13 98.3 109 20 132/66 100 01/18/17 18:36 92 18 109/60 99 01/18/17 15:00 98 18 106/58 100 Room Air 01/18/17 12:00 100 18 87/52 96 Room Air 01/18/17 11:15 110 18 89/52 98 Room Air 01/18/17 10:33 112 18 82/51 97 Room Air 01/18/17 10:21 119 20 100 Room Air 01/18/17 09:56 98.4 125/59 Room Air I/O 01/18/17 01/18/17 01/18/17 01/19/17 01/19/17 01/19/17 07:00 15:00 23:00 07:00 15:00 23:00 Output Total 1200 ml Balance -1200 ml Output Urine Total 1200 ml # Voids 1 Result Diagram: 01/19/17 0533 01/19/17 0533 Imaging Last Impressions Head CT 01/18/17 1029 Signed Impressions: Service Date/Time: December 11:04 - CONCLUSION: Normal examination. Addison James Jr., MD Chest X-Ray 01/18/17 1029 Signed Impressions: Service Date/Time: December 10:39 - CONCLUSION: Normal examination. Addison James Jr., MD Renal Ultrasound 01/18/17 0000 Signed Impressions: Service Date/Time: December 13:36 - CONCLUSION: Normal examination for a patient of this age. Edis Nichols MD Objective Remarks GENERAL: NAD SKIN: Warm and dry. HEAD: Normocephalic. EYES: No scleral icterus. No injection or drainage. NECK: Supple, trachea midline. No JVD or lymphadenopathy. CARDIOVASCULAR: Regular rate and rhythm without murmurs, gallops, or rubs. RESPIRATORY: Breath sounds equal bilaterally. No accessory muscle use. GASTROINTESTINAL: Abdomen soft, non-tender, nondistended. MUSCULOSKELETAL: No cyanosis, or edema. BACK: Nontender without obvious deformity. No CVA tenderness. A/P Problem List: (1) Acute kidney failure ICD Code: N17.9 Status: Acute (2) Hypotension ICD Code: I95.9 Status: Acute (3) Sepsis ICD Code: A41.9 Status: Acute (4) UTI (urinary tract infection) ICD Code: N39.0 Status: Acute (5) Hyperkalemia ICD Code: E87.5 Status: Acute (6) Rhabdomyolysis ICD Code: M62.82 Status: Acute (7) Suppressed TSH Status: Acute (8) Acute psychosis ICD Code: F23 Status: Acute (9) Anemia ICD Code: D64.9 Status: Acute (10) Depression ICD Code: F32.9 Status: Acute (11) Proteinuria ICD Code: R80.9 Status: Acute (12) Psychosis ICD Code: F29 Status: Acute (13) Hypertension ICD Code: I10 Status: Acute (14) Chronic pain ICD Code: G89.29 Status: Acute (15) Metabolic acidosis ICD Code: E87.2 Status: Acute Assessment and Plan 61 year-old female with Sepsis UTI - Continue Rocephin, pending urine culture, blood culture Metabolic encephalopathy-resolved Chronic pain - Continue home Percocet for pain Acute psychosis - Patient has history of psychiatric illness/psychosis - Case discussed today 01/19/[address] Matamoros, psychiatry. Patient will be discharged to med psych for further treatment - Minimize sedation - Haldol if needed for acute psychosis Hypotension -Resolved status post NS boluses Acute kidney failure History of proteinuria -Dehydration and sepsis/ATN contributing -Normal Renal US -Continue with current IV fluid hydration with sodium bicarbonate, monitor BUN and creatinine and avoid all nephrotoxic drugs -Appreciate input from nephrology -Hyperkalemia Resolved Metabolic acidosis Continue with sodium bicarbonate NS Suppressed TSH - Thyroid studies and thyroid nodule workup as outpatient, this has no impact on current clinical presentation - TSH is suppressed but T4 and T3 low normal PROPH: - Bilateral lower extremity SCDs. Heparin and Protonix Discharge Planning Discharge patient to med/psych Problem Qualifiers (1) Acute kidney failure: Qualified Code: N17.9 - Acute renal failure, unspecified acute renal failure type (2) Hypotension: Qualified Code: I95.9 - Hypotension, unspecified hypotension type (3) UTI (urinary tract infection): (4) Anemia: Qualified Code: D64.9 - Anemia, unspecified type (5) Depression: Qualified Code: F32.9 - Depression, unspecified depression type (6) Proteinuria: Qualified Code: R80.9 - Proteinuria, unspecified type (7) Psychosis: Qualified Code: F29 - Psychosis, unspecified psychosis type (8) Hypertension: Qualified Code: I10 - Hypertension, unspecified type (9) Chronic pain: Qualified Code: G89.29 - Other chronic pain Sang Walker MD Jan 19, 2017 10:01
--- NOTE | 2017-01-19 10:05 | HHI.DS ---
Discharge Summary Admission Date Jan 18, 2017 at 13:27 Discharge Date: Jan 19, 2017 Admitting Diagnosis SEPSIS, Acute kidney injury, hyperthyroidism, anemiam, uti (1) Acute kidney failure ICD Code: N17.9 (2) Hypotension ICD Code: I95.9 (3) Sepsis ICD Code: A41.9 (4) UTI (urinary tract infection) ICD Code: N39.0 (5) Hyperkalemia ICD Code: E87.5 (6) Rhabdomyolysis ICD Code: M62.82 (7) Suppressed TSH (8) Acute psychosis ICD Code: F23 (9) Anemia ICD Code: D64.9 (10) Depression ICD Code: F32.9 (11) Proteinuria ICD Code: R80.9 (12) Psychosis ICD Code: F29 (13) Hypertension ICD Code: I10 (14) Chronic pain ICD Code: G89.29 (15) Metabolic acidosis ICD Code: E87.2 Procedures None Brief History - From Admission This is a 61-year-old female with a history of depression, psychosis, chronic pain, history of thyroid nodule, and hypertension who presented with complaints of altered sensorium. Most of my history is obtained from talking to the patient herself and reviewing the ER notes. I was unable to get in touch with her . 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 According to ER note, over the last 2 weeks she's become more confused. Patient states that her was worried that she was talking to people who were not there. The patient denies any fevers, chills. 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 Patient had so far received 2 L normal saline fluid boluses when I saw her in the ED. UA showed urinary tract infection. Hemoglobin is 9.9, wbc 11.2, Na 131, K 5.4, BUN/Cr83/5.6, CPK 838. TSH 0.09 was suppressed but T4 normal indicating subclinical hypothyroidism. I doubt her subclinical hyperthyroidism is playing any part in her presentation and this can be followed as outpatient. Prior to my evaluation of the patient, a Pierce catheter was placed and approximately 1.5 L immediate urine output. Renal ultrasound had been done, results are pending. Patient received a dose of Rocephin which will be continued daily. Additional 2 L IV fluid boluses ordered CBC/BMP: 01/19/17 0533 01/19/17 0533 Significant Findings Laboratory Tests Test 01/18/17 01/18/17 01/18/17 01/18/17 10:36 10:55 11:35 14:00 White Blood Count 11.2 TH/MM3 (4.0-11.0) Red Blood Count 3.39 MIL/MM3 (4.00-5.30) Hemoglobin 9.9 GM/DL (11.6-15.3) Hematocrit 31.3 % (35.0-46.0) Mean Corpuscular Hemoglobin 31.8 % Concent (32.0-36.0) Neutrophils (%) (Auto) 80.1 % (16.0-70.0) Neutrophils # (Auto) 8.9 TH/MM3 (1.8-7.7) Sodium Level 131 MEQ/L (136-145) Potassium Level 5.4 MEQ/L 5.5 MEQ/L (3.5-5.1) (3.5-5.1) Carbon Dioxide Level 19.7 MEQ/L 17.5 MEQ/L (21.0-32.0) (21.0-32.0) Blood Urea Nitrogen 83 MG/DL (7-18) 77 MG/DL (7-18) Creatinine 5.61 MG/DL 4.53 MG/DL (0.50-1.00) (0.50-1.00) Estimat Glomerular Filtration 8 ML/MIN (>89) 10 ML/MIN (>89) Rate Aspartate Amino Transf 41 U/L (15-37) (AST/SGOT) Alkaline Phosphatase 126 U/L (45-117) Total Creatine Kinase 838 U/L (26-192) Creatine Kinase MB 24.4 NG/ML (0.5-3.6) Troponin I LESS THAN 0.02 NG/ML (0.02-0.05) Albumin 2.8 GM/DL (3.4-5.0) Thyroid Stimulating Hormone 0.009 uIU/ML 3rd Gen (0.358-3.740) Urine Turbidity CLOUDY (CLEAR) Urine Protein 100 mg/dL (NEG-TRACE) Urine Occult Blood MOD (NEG) Urine Leukocyte Esterase LARGE (NEG) Urine RBC 47 /hpf (0-3) Urine WBC Clumps MANY (NONE) Urine Bacteria MANY /hpf (NONE) Ammonia LESS THAN 10 MCMOL/L (11-32) Chloride Level 110 MEQ/L (98-107) Serum Osmolality 308 MOSM/KG (275-295) Lactic Acid Level 0.3 mmol/L (0.4-2.0) Calcium Level 8.4 MG/DL (8.5-10.1) Total Triiodothyronine 58 NG/DL (60-181) Salicylates Level LESS THAN 1.7 MG/DL (2.8-20.0) Acetaminophen Level LESS THAN 2.0 MCG/ML (10.0-30.0) Test 01/18/17 01/19/17 14:45 05:33 Blood Gas HCO3 15 mmol/L (22-26) Blood Gas Base Excess -9.3 mmol/L (-2-2) Arterial Blood pH 7.34 (7.380-7.420) Arterial Blood Partial 29 mmHg (38-42) Pressure CO2 Red Blood Count 3.22 MIL/MM3 (4.00-5.30) Hemoglobin 9.7 GM/DL (11.6-15.3) Hematocrit 29.2 % (35.0-46.0) Chloride Level 113 MEQ/L (98-107) Carbon Dioxide Level 19.3 MEQ/L (21.0-32.0) Blood Urea Nitrogen 48 MG/DL (7-18) Creatinine 2.11 MG/DL (0.50-1.00) Estimat Glomerular Filtration 24 ML/MIN (>89) Rate Random Glucose 71 MG/DL (74-106) Magnesium Level 2.7 MG/DL (1.5-2.5) Total Creatine Kinase 414 U/L (26-192) Creatine Kinase MB 8.0 NG/ML (0.5-3.6) PE at Discharge GENERAL: NAD SKIN: Warm and dry. HEAD: Normocephalic. EYES: No scleral icterus. No injection or drainage. NECK: Supple, trachea midline. No JVD or lymphadenopathy. CARDIOVASCULAR: Regular rate and rhythm without murmurs, gallops, or rubs. RESPIRATORY: Breath sounds equal bilaterally. No accessory muscle use. GASTROINTESTINAL: Abdomen soft, non-tender, nondistended. MUSCULOSKELETAL: No cyanosis, or edema. BACK: Nontender without obvious deformity. No CVA tenderness. Hospital Course Anne was admitted secondary to sepsis due to UTI for which she was started on IV antibiotics. On Admission she also had metabolic encephalopathy which resolved. Secondary to acute renal failure nephrology was consulted and patient treated with IV fluid hydration which was subsequently switched to sodium bicarbonate secondary to metabolic acidosis and hyperkalemia. She responded well to NS bolus due to hypotension. Also due to patient with acute psychosis on admission, psychiatry was consulted and recommended transfer to med /psych for further treatment. DVT and GI prophylaxis were provided. Patient will remain on IV Rocephin pending final urine and blood culture. Pt Condition on Discharge: Stable Discharge Disposition: Disc to Psych Care Fac Discharge Time: > 30 minutes Discharge Instructions DIET: Follow Instructions for: Heart Healthy Diet Activities you can perform: Regular-No Restrictions Sang Walker MD Jan 19, 2017 10:05
--- NOTE | 2017-01-19 10:19 | PD.PSY.CON ---
Provisional Diagnosis Admission Date Jan 18, 2017 at 13:27 [place] I. Unspecified psychosis, R/O delirium due to another underlying medical condition , R/O substance-induced psychosis, R/o schizoaffective disorder, bipolar type, Hypnotic-sedatives (fioricet) use disorder, in full sustained remission [place] II. Deferred [place] III. Hypertension, hyperthyroidism, UTI, STEFANIA [place] IV. History of substance abuse [place] V. 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 Oj Quintana, she is on Wellbutrin 300 mg daily, sertraline 150 mg, Xanax 0.5 mg twice a day, clonazepam 1 mg at bedtime, Adderall 30 mg, with medical history of chronic pain , history of thyroid nodule, and hypertension who presented with complaints of altered sensorium, visual hallucinations, paranoia, increased disorganized behavior. According to ER note, over the last 2 weeks she's become more confused. Patient states that her was worried that she was talking to people who were not there. UA showed urinary tract infection. Hemoglobin is 9.9 , wbc 11.2, Na 131, K 5.4, BUN/Cr83/5.6, CPK 838. TSH 0.09 was suppressed but T4 normal indicating subclinical hypothyroidism. She was finally admitted in the ICU due to UTI, AKA, metabolic encephalopathy. Consulted to psychiatry due to perceptual disturbances. On psychiatric evaluation today patient is calm, cooperative and pleasant. However, throughout the evaluation patient shows moments of confusion, disorganized patient alternated with moments of lucidity. Patient says that she doesn't understand very well the reason she is in the hospital. She says that her has been noticing and rear behavior on her , but she hasn't being aware of it. Patient says that she wants to go home and to continue with her life. She reports a good mood, but as she is asked about depression patient is start crying and saying that she feels very guilty of abusing drugs in the past. She says that she put her job in danger by misusing Fioricet, but she went to treatment, got better and was able to achieve sobriety and since then she hasn't relapsed, and she was giving able to go back to work. However, patient says that for the last months she feels that she may be abusing her prescribed medication again, but she refuses to elaborate and talk about. She says that she has been Xanax, Klonopin, Adderall, and also in pain medication prescribed by her PCP and psychiatrist. She reports having very vivid dreams, usually very colorful nightmares that is very difficult for her to define from the reality wants to wake up in the morning. She also reports frequent visual hallucinations that have been increasing in severity and frequency in the last 2 weeks. She denies suicidal and homicidal ideation. She reports several protective factors for suicidality and she seems to be future oriented. During the evaluation no prominent paranoia, delusions, ideas of reference, thought controlling are really observed. Patient seems to be internally stimulated, a little bit guarded and confused, but mostly organized. She is oriented 3, with conserved naming, repetition, immediate and recent recall, attention, abstract thinking, executive function, but impaired concentration. She denies the use of illicit drugs and alcohol. I tried to obtain collateral information information from Dr. Jacob Quintana, , but his office is closed on Fridays. Collateral information from her , Edis Leger was obtained, [phone], who informs that the patient has been presenting a bizarre behavior, with periods of disorganization and talking to herself for the last 2 weeks. In the last 3-4 days this behavior has been worsening. He says that about 2 days ago he went inside the room and he found the patient having a discussion very loud with the people in the TV. He says that the patient was yelling at them, telling them to a stop bothering her and she was very distressed and crying. He clarifies that patient never had an episode like this before. She has been depressed, very emotional, but never psychotic. She has been compliant with her medications and also with psychiatric follow-ups. He does think that the medication that she is taking could have important part in the etiology of her current presentation. He was explained about the plan of transferring the patient to the [facility] psych unit and he was in a complete agreement. Review of Systems Constitutional: DENIES: Diaphoretic episodes, Fatigue, Fever, Weight gain, Weight loss, Chills, Dizziness, Change in appetite, Night Sweats Endocrine: DENIES: Abnorml menstrual pattern, Heat/cold intolerance, Polydipsia , Polyuria, Polyphagia Eyes: DENIES: Blurred vision, Diplopia, Eye inflammation, Eye pain, Vision loss , Photosensitivity, Double Vision Ears, nose, mouth, throat: DENIES: Tinnitus, Hearing loss, Vertigo, Nasal discharge, Oral lesions, Throat pain, Hoarseness, Ear Pain, Running Nose, Epistaxis, Sinus Pain, Toothache, Odynophagia Respiratory: DENIES: Apneas, Cough, Snoring, Wheezing, Hemoptysis, Sputum production, Shortness of breath Cardiovascular: DENIES: Chest pain, Palpitations, Syncope, Dyspnea on Exertion , PND, Lower Extremity Edema, Orthopnea, Claudication Genitourinary: DENIES: Abnormal vaginal bleeding, Dysmenorrhea, Dyspareunia, Sexual dysfunction, Urinary frequency, Urinary incontinence, Urgency, Hematuria , Dysuria, Nocturia, Vaginal discharge Musculoskeletal: DENIES: Joint pain, Muscle aches, Stiffness, Joint Swelling, Back pain, Neck pain Integumentary: DENIES: Abnormal pigmentation, Pruritus, Rash, Nail changes, Breast masses, Breast skin changes, Nipple discharge Hematologic/lymphatic: DENIES: Bruising, Lymphadenopathy Immunologic/allergic: DENIES: Eczema, Urticaria Neurologic: DENIES: Abnormal gait, Headache, Localized weakness, Paresthesias, Seizures, Speech Problems, Tremor, Poor Balance Psychiatric: COMPLAINS OF: Mood changes, Hallucinations Past Family Social History Coded Allergies: No Known Allergies (Unverified , 01/18/17) Reported Medications Lisinopril 10 Mg Tab10 Mg PO DAILY #30 TAB Ref 0 01/18/17 Oxycodone-Acetaminophen (Percocet)10-325 mg Tab1 Tab PO Q6H PRN (PAIN) Ref 0 01/18/17 Alprazolam ER 24 HR (Xanax Xr 24 HR)0.5 Mg Tab0.5 Mg PO HS #30 TAB Ref 0 Take tablet intact, preferably in the morning. 01/18/17 Clonazepam 1 Mg Tab1 Mg PO DIRECTED #60 TAB Ref 0 01/18/17 Bupropion HCl ER 24 HR (Wellbutrin Xl 24 HR)300 Mg Yum030 Mg PO DAILY Ref 0 01/18/17 Sertraline 100 Mg [id number] Mg PO DAILY #30 TAB Ref 0 01/18/17 Hydrochlorothiazide 12.5 Mg Cap12.5 Mg PO DAILY #30 CAP Ref 0 01/18/17 Current Medications Medications (Trade) Dose Ordered Sig/Bertin Route Start Time Stop Time Status Last Admin (NS Flush) 2 ml UNSCH PRN IV FLUSH 01/18/17 10:30 (D50w (Vial) Inj) 25 ml UNSCH PRN IV PUSH 01/18/17 13:15 (NovoLIN R SUPPLEMENTAL SCALE) 1 Q6HR SQ 01/18/17 18:00 (Zofran Inj) 4 mg Q6H PRN IV 01/18/17 13:15 (Heparin Inj) 5,000 units Q12H SQ 01/18/17 14:00 01/19/17 04:57 Miscellaneous Information 1 [id number] XX 01/18/17 13:15 01/18/17 16:41 (Chlorhexidine 2% Cloth) 3 pack Taper DAILY@04 TOP 01/19/17 04:00 01/15/18 03:59 01/19/17 04:00 (Chlorhexidine 2% Cloth) 3 pack UNSCH PRN TOP 01/18/17 13:15 Senna/Docusate Sodium 1 tab 1 tab BID PO 01/18/17 21:00 (Rocephin Inj/NS Inj) 100 ml @ 200 mls/hr Q24H IV 01/18/17 14:00 01/18/17 15:59 Terbutaline Sulfate 1 mg 1 mg UNSCH PRN SQ 01/18/17 15:00 (Sodium Bicarbonate 8.4% Inj/1/2 NS 1000 ml Inj) 1,050 ml @ 84 mls/hr [id number] IV 01/18/17 18:00 01/19/17 04:58 (Percocet 10-325 Mg) 1 tab Q6H PRN PO 01/18/17 17:00 Family History Patient denies psychiatric family history Social History Patient was born and raised in [place], she lives in [place] with her , she has no kids, she worked her entire life as a pharmacist, now retired, highest level of education is PhD. Patient's Strengths (min. 2) Family support, high level of education Physical Exam Patient presents hypoactive, with psychomotor retardation, but no tremors, no withdrawal symptoms, no pupillary abnormalities, no stiffness, no EPS present at this moment Vital Signs Vital Signs Date Time Temp Pulse Resp B/P Pulse Ox O2 Delivery O2 Flow Rate FiO2 01/19/17 08:00 95 01/19/17 08:00 98.0 22 120/69 96 01/18/17 15:00 Room Air I/O 01/18/17 01/18/17 01/19/17 08:00 16:00 00:00 Output Total 1200 ml Balance -1200 ml Lab Results Laboratory Tests Test 01/18/17 01/18/17 01/18/17 01/18/17 10:36 10:55 11:35 14:00 White Blood Count 11.2 Red Blood Count 3.39 Hemoglobin 9.9 Hematocrit 31.3 Mean Corpuscular Volume 92.1 Mean Corpuscular Hemoglobin 29.3 Mean Corpuscular Hemoglobin 31.8 Concent Red Cell Distribution Width 14.5 Platelet Count 325 Mean Platelet Volume 8.8 Neutrophils (%) (Auto) 80.1 Lymphocytes (%) (Auto) 10.1 Monocytes (%) (Auto) 7.9 Eosinophils (%) (Auto) 1.5 Basophils (%) (Auto) 0.4 Neutrophils # (Auto) 8.9 Lymphocytes # (Auto) 1.1 Monocytes # (Auto) 0.9 Eosinophils # (Auto) 0.2 Basophils # (Auto) 0.0 CBC Comment DIFF FINAL Differential Comment Sodium Level 131 137 Potassium Level 5.4 5.5 Chloride Level 101 110 Carbon Dioxide Level 19.7 17.5 Anion Gap 10 10 Blood Urea Nitrogen 83 77 Creatinine 5.61 4.53 Estimat Glomerular Filtration 8 10 Rate Random Glucose 98 90 Calcium Level 9.5 8.4 Total Bilirubin 0.3 Aspartate Amino Transf 41 (AST/SGOT) Alanine Aminotransferase 48 (ALT/SGPT) Alkaline Phosphatase 126 Total Creatine Kinase 838 Creatine Kinase MB 24.4 Creatine Kinase MB % 2.9 Troponin I LESS THAN 0.02 Total Protein 7.8 Albumin 2.8 Thyroid Stimulating Hormone 0.009 3rd Gen Ethyl Alcohol Level LESS THAN 3 Urine Color YELLOW Urine Turbidity CLOUDY Urine pH 5.5 Urine Specific [place] 1.021 Urine Protein 100 Urine Glucose (UA) NEG Urine Ketones NEG Urine Occult Blood MOD Urine Nitrite NEG Urine Bilirubin NEG Urine Urobilinogen LESS THAN 2.0 Urine Leukocyte Esterase LARGE Urine RBC 47 Urine WBC Urine WBC Clumps MANY Urine Squamous Epithelial 26 Cells Urine Transitional Epithelial 1 Cells Urine Bacteria MANY Urine Hyaline Casts 14 Microscopic Urinalysis Comment CATH-CULTURE IND Ammonia LESS THAN 10 Serum Osmolality 308 Lactic Acid Level 0.3 Salicylates Level LESS THAN 1.7 Acetaminophen Level LESS THAN 2.0 Complement C3 154 Complement C4 36 Test 01/18/17 14:45 Blood Gas Puncture Site RT RADIAL Blood Gas Patient Temperature 98.6 Blood Gas HCO3 15 Blood Gas Base Excess -9.3 Blood Gas Oxygen Saturation 95 Arterial Blood pH 7.34 Arterial Blood Partial 29 Pressure CO2 Arterial Blood Partial 88 Pressure O2 Arterial Blood Oxygen Content 16.2 Arterial Blood 0.9 Carboxyhemoglobin Arterial Blood Methemoglobin 0.9 Blood Gas Hemoglobin 12.2 Oxygen Delivery Device ROOM AIR Blood Gas Inspired Oxygen 21 Date/Time Procedure Status Source Growth 01/18/17 10:55 Urine Culture Received Urine Catheterized Urine Pending Result Diagram: 01/18/17 1036 01/18/17 1400 Mental Status Examination Appearance woman, age appearing, good hygiene, [facility], she is calm, cooperative, a little bit confused Speech: Hesitant, Slow Orientation: x3 Memory: Unremarkable Thought Process: Loose Association, Thought Blocking Thought Content: Paranoid Language Appropriate naming and use of words, good structural and adequate formation of sentences, Fund of Knowledge Patient knows who is the audit analyst, who was the president before this president, what is the purpose of her hospitalization Hallucination Type: Auditory, Visual Attention and Concentration: Abnormal Suicidal Ideation: No Previous Suicide Attempts: No Homicidal Ideation: No Previous Homicide Attempts: No Judgment: Poor Affect: Irritable Affect if Inappropriate: Labile Mood: Sad Motor Activity: Normal gait Assessment & Plan Problem List: (1) Unspecified psychosis Assessment & Plan: The patient presents with was seems to be new onset, persisting, anxiety provoking, distressing, increased in severity and frequency and intensity in the last 2 weeks perceptual disturbances consistent on visual hallucinations, paranoia, impaired ego boundaries, disorganized behavior. Today on psychiatric evaluation patient also present mood lability and confusion. However, is important to clarify that she seems to be cognitively intact, with just some significant impairment in concentration, but most of the areas of cognition, such as executive function, naming, repetition, orientation , abstract thinking seems to be intact at the moment of this evaluation. At this moment is difficult to define if current presentation is secondary to delirium related with underlying medical conditions, UTI,STEFANIA, thyroid dysfunction, benzodiazepines withdrawal, or if current presentation is secondary to a major psychiatric condition decompensation. Patient definitely meets criteria for psychiatric admission for stabilization and revision of psychotropic regimen. Patient can be transferred to med psych unit in voluntary basis, patient and agree. Will restart Wellbutrin 200 mg, Zoloft 150 mg and clonazepam 1 mg twice a day. We'll start Seroquel 25 mg twice a day for psychosis. Will hold Xanax and Adderall, since I don't see a clear indication of this medications until collateral information from her psychiatrist can be obtained. Monitor closely benzodiazepines withdrawal. CIWA protocol. Extensive support, motivation and psychoeducation provided. I also communicated with Dr. Lambert and Dr. Medina and they both agree with plan. ICD Code: F29 Assessment & Plan Estimated LOS: Sanket García MD Jan 19, 2017 10:19
[2017-01-19] MEDS ORDERED: QUEtiapine FUMARATE 25 MG TAB PO SCH (10:30)
[2017-01-19] MEDS: DOCUSATE SODIUM 50 MG/SENNA 8.6 MG TAB PO SCH (12:32)
[2017-01-19] MEDS: cefTRIAXone INJ 1,000 MG in SODIUM CHLORIDE 0.9% INJ 100 ML IV SCH (12:33)
[2017-01-19 14:19] LABS: AMPHETAMINE, URINE POS (NEG); BARBITURATES, URINE NEG (NEG); COCAINE, URINE NEG (NEG)
== END 2017-01-19 18:00 | DRG 871 ==
LOC: NEPE 09:55 → NEDA 13:27 → HIMN 18:30
PROVIDERS: ADMIT Hospitalist; ATTEND Hospitalist
PROC: 0T9B70Z Drainage of Bladder with Drainage Device, Via Natural or Artificial Opening (ICD-10-PCS; principal; 2017-01-18)
DX: A41.9 Sepsis, unspecified organism (principal); N17.0 Acute kidney failure with tubular necrosis; G93.41 Metabolic encephalopathy; E87.2 Acidosis; I95.9 Hypotension, unspecified; M62.82 Rhabdomyolysis; F32.3 Major depressive disorder, single episode, severe with psychotic features; E87.5 Hyperkalemia; N39.0 Urinary tract infection, site not specified; F23 Brief psychotic disorder; F32.9 Major depressive disorder, single episode, unspecified; E05.90 Thyrotoxicosis, unspecified without thyrotoxic crisis or storm; D64.9 Anemia, unspecified; G89.29 Other chronic pain; R80.9 Proteinuria, unspecified; I12.9 Hypertensive chronic kidney disease with stage 1 through stage 4 chronic kidney disease, or unspecified chronic kidney disease; N18.9 Chronic kidney disease, unspecified; F17.210 Nicotine dependence, cigarettes, uncomplicated; E86.0 Dehydration; E04.1 Nontoxic single thyroid nodule; M54.2 Cervicalgia; F41.9 Anxiety disorder, unspecified
CPT/HCPCS: 36600; 70450; 71010; 76775; 80048; 80053; 80307; 81001; 82140; 82550; 82552; 82570; 82805; 82948; 83605; 83735; 83930; 83935; 84100; 84132; 84300; 84436; 84443; 84480; 84484; 85025; 85027; 86021; 86038; 86160; 87040; 87077; 87086; 87186; 87205; 87641; 93005; 96360; J0696; J1644; J7030

== ENCOUNTER 2017-01-19 15:12 | Inpatient (IN) | payer BC ==
[~2017-01-19] VITALS: Ht 154.9 cm; Wt 61.0 kg
[~2017-01-19 15:12] MED LIST: CLON1TAB PO; HYDR12.57 PO; LISI10TA3 PO; PERC10TA27 PO; SERT-129 PO; WELLTAB39 PO; XANA0.5T2 PO
[2017-01-19 19:11] VITALS: BP 135/68; PULSE 98; RESP 17; TEMP 98.1; O2SAT 98
[2017-01-19] MEDS ORDERED: MAGNESIUM HYDROXIDE SUSP 30 ML CUP PO PRN (21:30)
[2017-01-19] MEDS ORDERED: ALUMINUM/MAGNESIUM/SIMETH 30 ML CUP PO PRN (21:30)
[2017-01-19] MEDS ORDERED: LORazepam 2 MG/ML VIAL IM PRN (21:30)
[2017-01-19] MEDS: LORazepam 1 MG TAB PO PRN (22:33)
[2017-01-20] MEDS: SODIUM BICARBONATE 8.4% INJ 50 MEQ in SODIUM CHLOR 0.45% 1000 ML INJ 1,000 ML IV SCH ×2 (01:05→13:15)
[2017-01-20 06:17] VITALS: BP 129/73; PULSE 70; RESP 16; TEMP 98.2; O2SAT 99
[2017-01-20] MEDS: NICOTINE 21 MG/24 HR PATCH T-DERMAL SCH (09:00)
[2017-01-20] MEDS: PANTOPRAZOLE SOD 40 MG DELAYED RELEASE TAB PO SCH (09:44)
[2017-01-20] MEDS: HEPARIN SODIUM - SQ 10,000 UNITS/ML VIAL SQ SCH ×2 (09:44→20:04)
[2017-01-20] MEDS: cefTRIAXone INJ 1,000 MG in SODIUM CHLORIDE 0.9% INJ 100 ML IV SCH (12:00)
--- NOTE | 2017-01-20 12:18 | PD.CONS ---
[facility] team Reason for Consult Medical management Primary Care Physician Reginald Borges MD Diagnoses: History of Present Illness Written by Carlos Gacria, acting as scribe for Dr. Bernal on 01/20/17 at 11:54. This note was transcribed by scribMaryann LINTON. I, Dr. Suze Bernal personally performed the history, physical exam, and medical decision making; and confirmed the accuracy of the information in the transcribed note. Authenticated by Dr. Suze Bernal on 01/20/17 at 11:54. Patient is a 61-year-old female with primary medical history of depression, psychosis, hypertension, hyperlipidemia, thyroid nodules, questionable CKD who came into the hospital for altered mental status. Patient was found to have urinary tract infection and was treated with IV antibiotics and also to be continued until completed. She also was found to be on acute kidney failure with creatinine 5.61, IV fluid hydration was provided and continued when she was transferred to medical psychiatry unit. She is now in medical psychiatry unit for further evaluation of her other psychiatric condition. Consulted for medical management. Patient seen and examined today. Reports she is doing well. States her abdominal pain and dysuria has improved. She is very happy that the Pierce catheter was discontinued. She already has voided, notes that urine was in good color. Patient verified her past medical history including hypertension, HLD, thyroid nodules, she does not know if she has chronic kidney problems but she states that she is followed by her doctor Dr. Borges and has not mentioned anything. Denies pain and discomfort. Denies SOB/ dyspnea. Denies chest pain, palpitations, headaches, dizziness. Denies fevers, chills, n/v/d. Denies hematuria, dysuria. Review of Systems Except as stated in HPI: all other systems reviewed are Neg Past Family Social History Allergies: Coded Allergies: No Known Allergies (Unverified , 01/18/17) Past Medical History HTN HLD Thyroid nodules being followed by Dr. Murdock Past Surgical History None Reported Medications Reported Meds & Active Scripts Active Reported Lisinopril 10 Mg Tab 10 Mg PO DAILY Percocet (Oxycodone-Acetaminophen) 10-325 mg Tab 1 Tab PO Q6H PRN Xanax Xr 24 HR (Alprazolam) 0.5 Mg Tab 0.5 Mg PO HS Take tablet intact, preferably in the morning. Clonazepam 1 Mg Tab 1 Mg PO DIRECTED Wellbutrin Xl 24 HR (Bupropion HCl) 300 Mg Tab 300 Mg PO DAILY Sertraline (Sertraline HCl) 100 Mg Tab 150 Mg PO DAILY Hydrochlorothiazide 12.5 Mg Cap 12.5 Mg PO DAILY Active Ordered Medications Current Medications Medications (Trade) Dose Ordered Sig/Bertin Route Start Time Stop Time Status Last Admin (Ativan) 1 mg Q6H PRN PO 01/19/17 21:30 01/19/17 22:33 (Ativan Inj) 1 mg Q6H PRN IM 01/19/17 21:30 (Tylenol) 650 mg Q4H PRN PO 01/19/17 21:30 (Milk Of Magnesia Liq) 30 ml DAILY PRN PO 01/19/17 21:30 (Mag-Al Plus Susp Liq) 30 ml Q6H PRN PO 01/19/17 21:30 (Habitrol 21 Mg Patch.24 Hr) 1 patch DAILY T-DERMAL 01/20/17 09:00 Miscellaneous Information 1 1 HS T-DERMAL 01/20/17 21:00 (Sodium Bicarbonate 8.4% Inj/1/2 NS 1000 ml Inj) 1,050 ml @ 84 mls/hr [id number] IV 01/20/17 00:45 01/20/17 01:05 Heparin Sodium (Porcine) 5000 units 5,000 units Q12HR SQ 01/20/17 09:00 01/20/17 09:44 (Rocephin Inj/NS Inj) 100 ml @ 200 mls/hr Q24H IV 01/20/17 12:00 (Protonix) 40 mg DAILY PO 01/20/17 09:00 01/20/17 09:44 Family History Father of glioblastoma Mother of coronary event status post CABG Social History Recovering alcohol addict - last alcohol use March 1998 Currently smoker half a pack per day 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 SKIN: No rashes, ecchymoses or lesions. Cool and dry. HEAD: Normocephalic. No temporal or scalp tenderness. EYES: Pupils equal round and reactive. Extraocular motions intact. No scleral icterus. No injection or drainage. ENT: Nose without bleeding. Throat without erythema. Uvula midline. Airway patent. NECK: Trachea midline. Supple. CARDIOVASCULAR: Regular rate and rhythm without murmurs, gallops, or rubs. RESPIRATORY: Clear to auscultation. Breath sounds equal bilaterally. No wheezes , rales, or rhonchi. GASTROINTESTINAL: Abdomen soft, non-tender, nondistended. Bowel sounds active 4. No guarding. MUSCULOSKELETAL: Extremities without clubbing, cyanosis, or edema. NEUROLOGICAL: Awake and alert. Cranial nerves II through XII intact. Motor and sensory grossly within normal limits. No focal neuro deficit. Normal speech. Assessment and Plan Problem List: (1) Unspecified psychosis ICD Code: F29 Status: Acute (2) Acute kidney injury ICD Code: N17.9 Status: Acute (3) Sepsis ICD Code: A41.9 Status: Acute (4) Hypertension ICD Code: I10 Status: Chronic Assessment and Plan Patient is a 61-year-old female with primary medical history of depression, psychosis, hypertension, hyperlipidemia, thyroid nodules, questionable CKD who came into the hospital for altered mental status. Patient was found to have urinary tract infection and was treated with IV antibiotics and also to be continued until completed. She also was found to be on acute kidney failure with creatinine 5.61, IV fluid hydration was provided and continued when she was transferred to medical psychiatry unit. She is now in medical psychiatry unit for further evaluation of her other psychiatric condition. Consulted for medical management. Psychosis Depression - Managed by psychiatry team Sepsis, metabolic encephalopathy Urinary tract infection - Leukocytosis resolved - Continue with Rocephin, complete date 5days - Pierce catheter discontinued - Microbiology Escherichia coli, pansensitive Metabolic acidosis Continue with sodium bicarbonate NS Acute kidney failure History of proteinuria - Dehydration and sepsis/ATN contributing - Normal Renal US - Continue with current IV fluid hydration with sodium bicarbonate, monitor BUN and creatinine and avoid all nephrotoxic drugs - Nephrology consulted in the inpatient and has followed the patient. Recommending achy I probably secondary to dehydration or possibility of ATN because of hypotension. Follow-up results for [place] and ANCA level. Continue IV fluid hydration. - Avoid nephrotoxins - Follow BUN/creatinine Suppressed TSH - Thyroid studies and thyroid nodule workup as outpatient, this has no impact on current clinical presentation - TSH is suppressed but T4 and T3 low normal - Patient is being followed by Dr. Murdock and outpatient DVT prop ambulatory Code Status Full code Discussed Condition With Patient, nursing Carlos Holman Jan 20, 2017 12:18 Suze Bernal MD Jan 20, 2017 15:21
[2017-01-20 13:16] LABS: ANION GAP 8 MEQ/L (5-15); BICARBONATE 23.9 MEQ/L (21.0-32.0); BLOOD UREA NITROGEN 21 MG/DL (7-18); CHLORIDE 110 MEQ/L (98-107); GLOMERULAR FILTRATION RATE 57 ML/MIN (>89); HDL CHOLESTEROL 32.8 MG/DL (40.0-60.0); LDL CHOLESTEROL 102 MG/DL (0-99); SODIUM (NA) 142 MEQ/L (136-145)
[2017-01-20 14:09] LABS: HEMOGLOBIN A1a 1.4 %; HEMOGLOBIN A1b 2.4 %
[2017-01-20 14:10] LABS: HEMOGLOBIN Ao 81.6 %; HEMOGLOBIN LA1C 2.8 %; HEMOGLOBIN P3 4.9 %
--- NOTE | 2017-01-20 16:04 | HHI.HP ---
Provisional Diagnosis Admission Date Jan 19, 2017 at 18:45 [place]. Other Psychotic disorder F 28 Certification of Person's Competence To Provide Express and Informed Consent I have personally examined Liliam Leger , a person being served at [facility] on, Jan 20, 2017 15:53. Express and informed consent means consent voluntarily given in writing, by a competent person, after sufficient explanation and disclosure of the subject matter involved to enable the person to make a knowing and willful decision without any element of force, fraud, deceit, duress, or other form of constraint or coercion. This person is 18 years of age or older, is not now known to be incompetent to consent to treatment with a guardian advocate, and does not have a health care surrogate or proxy currently making medical treatment decisions. I have found this person to be one of the following: [xxx] Competent to provide express and informed consent, as defined above, for voluntary admission to this facility and is competent to provide express and informed consent for treatment. He/she has the consistent capacity to make well reasoned, willful, and knowing decisions concerning his or her medical or mental health treatment. The person fully and consistently understands the purpose of the admission for examination/placement and is fully capable of personally exercising all rights assured [place] Incompetent to provide express and informed consent to voluntary admission, and this is incompetent to provide express and informed consent to treatment. The person must be transferred to involuntary status and a petition for a guardian advocate filed with the Circuit Court. [] Refusing to provide express and informed consent to voluntary admission but is competent to provide express and informed consent for treatment. The person must be discharged or transferred to involuntary status. Form shall be completed within 24 hours of a person's arrival at the receiving facility and filed in the clinical record of each person: 1. Admitted on a voluntary basis 2. Permitted to provide express and informed consent to his/her own treatment 3. Allowed to transfer from involuntary to voluntary status 4. Prior to permitting a person to consent to his or her own treatment after having been previously found incompetent to consent to treatment. History of Present Illness Capacity: Has Capacity HPI Patient is a 61-year-old white female initially admitted to the medical service under visit [phone] on that appears to be 01/18 for acute kidney injury. She seen in consultation with Dr. Dennis who recommended transfer to the med psych unit due to patient's history of them increased psychotic behaviors out-of -control behaviors the past 2-3 weeks prior to the admission. Patient does have a history of mental health issues is being treated by local psychiatrist. Has been on various medications. Please see Dr. Dennis's dictation for full details. Patient seen by me today in her room on 4 E. she is alert better oriented calm and cooperative she does acknowledge the medical issues going on with her. Denies any voices or visions at the present time denies any suicidality homicidality. She states she has done well refrain long time on Wellbutrin and Zoloft. Will consider restarting those. But refrain from the benzodiazepines are psychostimulants Review of Systems Constitutional: DENIES: Diaphoretic episodes, Fatigue, Fever, Weight gain, Weight loss, Chills, Dizziness, Change in appetite, Night Sweats Endocrine: DENIES: Abnorml menstrual pattern, Heat/cold intolerance, Polydipsia , Polyuria, Polyphagia Eyes: DENIES: Blurred vision, Diplopia, Eye inflammation, Eye pain, Vision loss , Photosensitivity, Double Vision Ears, nose, mouth, throat: DENIES: Tinnitus, Hearing loss, Vertigo, Nasal discharge, Oral lesions, Throat pain, Hoarseness, Ear Pain, Running Nose, Epistaxis, Sinus Pain, Toothache, Odynophagia Respiratory: DENIES: Apneas, Cough, Snoring, Wheezing, Hemoptysis, Sputum production, Shortness of breath Cardiovascular: DENIES: Chest pain, Palpitations, Syncope, Dyspnea on Exertion , PND, Lower Extremity Edema, Orthopnea, Claudication Gastrointestinal: DENIES: Abdominal pain, Black stools, Bloody stools, Constipation, Diarrhea, Nausea, Vomiting, Difficulty Swallowing, Anorexia Genitourinary: DENIES: Abnormal vaginal bleeding, Dysmenorrhea, Dyspareunia, Sexual dysfunction, Urinary frequency, Urinary incontinence, Urgency, Hematuria , Dysuria, Nocturia, Vaginal discharge Musculoskeletal: DENIES: Joint pain, Muscle aches, Stiffness, Joint Swelling, Back pain, Neck pain Integumentary: DENIES: Abnormal pigmentation, Pruritus, Rash, Nail changes, Breast masses, Breast skin changes, Nipple discharge Hematologic/lymphatic: DENIES: Bruising, Lymphadenopathy Immunologic/allergic: DENIES: Eczema, Urticaria Neurologic: DENIES: Abnormal gait, Headache, Localized weakness, Paresthesias, Seizures, Speech Problems, Tremor, Poor Balance Psychiatric: COMPLAINS OF: Agitation (prior to prior hospitalization) Past Psych History Psychological trauma history with acute kidney injury Violence risk - others (6 mos) Low Violence risk - self (6 mos) Low Substance Abuse History Drugs/Alcohol past 12 months Denies Past Family Social History Coded Allergies: No Known Allergies (Unverified , 01/18/17) Past Medical History Please see med surge assessments Reported Medications Lisinopril 10 Mg Tab10 Mg PO DAILY #30 TAB Ref 0 01/18/17 Oxycodone-Acetaminophen (Percocet)10-325 mg Tab1 Tab PO Q6H PRN (PAIN) Ref 0 01/18/17 Alprazolam ER 24 HR (Xanax Xr 24 HR)0.5 Mg Tab0.5 Mg PO HS #30 TAB Ref 0 Take tablet intact, preferably in the morning. 01/18/17 Clonazepam 1 Mg Tab1 Mg PO DIRECTED #60 TAB Ref 0 01/18/17 Bupropion HCl ER 24 HR (Wellbutrin Xl 24 HR)300 Mg [id number] Mg PO DAILY Ref 0 01/18/17 Sertraline 100 Mg [id number] Mg PO DAILY #30 TAB Ref 0 01/18/17 Hydrochlorothiazide 12.5 Mg Cap12.5 Mg PO DAILY #30 CAP Ref 0 01/18/17 Current Medications Medications (Trade) Dose Ordered Sig/Bertin Route Start Time Stop Time Status Last Admin (Ativan) 1 mg Q6H PRN PO 01/19/17 21:30 01/19/17 22:33 (Ativan Inj) 1 mg Q6H PRN IM 01/19/17 21:30 (Tylenol) 650 mg Q4H PRN PO 01/19/17 21:30 (Milk Of Magnesia Liq) 30 ml DAILY PRN PO 01/19/17 21:30 (Mag-Al Plus Susp Liq) 30 ml Q6H PRN PO 01/19/17 21:30 (Habitrol 21 Mg Patch.24 Hr) 1 patch DAILY T-DERMAL 01/20/17 09:00 Miscellaneous Information 1 1 HS T-DERMAL 01/20/17 21:00 (Sodium Bicarbonate 8.4% Inj/1/2 NS 1000 ml Inj) 1,050 ml @ 84 mls/hr [id number] IV 01/20/17 00:45 01/20/17 13:15 Heparin Sodium (Porcine) 5000 units 5,000 units Q12HR SQ 01/20/17 09:00 01/20/17 09:44 (Rocephin Inj/NS Inj) 100 ml @ 200 mls/hr Q24H IV 01/20/17 12:00 01/20/17 12:00 (Protonix) 40 mg DAILY PO 01/20/17 09:00 01/20/17 09:44 Family History Unknown at this time Social History Patient lives with Patient's Strengths (min. 2) Her verbal irritable access healthcare Physical Exam Please see assessments under visit [phone] Vital Signs Vital Signs Date Time Temp Pulse Resp B/P Pulse Ox O2 Delivery O2 Flow Rate FiO2 01/20/17 06:17 98.2 70 16 129/73 99 I/O 01/19/17 01/19/17 01/19/17 07:59 15:59 23:59 Intake Total 902 ml Output Total 400 ml Balance 502 ml Mental Status Examination Clinical into the white female laying quietly in bed, cooperative with good eye contact Appearance Clean neatly Speech: Unremarkable Orientation: x3 Memory: Unremarkable Thought Process: Linear Thought Content: Unremarkable Language Fair Fund of Knowledge Fair Hallucination Type: None (denies) Attention and Concentration: Other (there) Suicidal Ideation: No (deny) Previous Suicide Attempts: No Homicidal Ideation: No (denies) Previous Homicide Attempts: No Insight: Poor Judgment: Poor Affect: Other (good range intensity) Mood: Euthymic Motor Activity: Normal gait (patient in bed unable to fully ascertain) Assessment & Plan Problem List: (1) Acute kidney injury ICD Code: N17.9 (2) Other psychotic disorder not due to a substance or known physiological condition ICD Code: F28 Assessment & Plan Estimated LOS: 2-3 days patient continues to resolve her psychosis, as her medical issues resolve. For now continue treatment Discharge Planning To be determined Request HC Surrog/Guard Advoc?: Uday John MD Jan 20, 2017 16:04
[2017-01-20 18:00] VITALS: BP 159/87; PULSE 106; RESP 16; TEMP 98.5; O2SAT 97
[2017-01-20] MEDS: ACETAMINOPHEN 325 MG TAB PO PRN (20:05)
[2017-01-20] MEDS: REMOVE OLD NICOTINE PATCH T-DERMAL SCH (21:00)
[2017-01-21] MEDS: SODIUM BICARBONATE 8.4% INJ 50 MEQ in SODIUM CHLOR 0.45% 1000 ML INJ 1,000 ML IV SCH (01:45)
[2017-01-21 06:09] VITALS: BP 156/85; PULSE 101; RESP 15; TEMP 97.7; O2SAT 99
[2017-01-21 06:11] VITALS: BP 156/85; PULSE 101; RESP 15; TEMP 97.7; O2SAT 99
[2017-01-21] MEDS: ACETAMINOPHEN 325 MG TAB PO PRN ×3 (06:19→21:30)
[2017-01-21] MEDS: NICOTINE 21 MG/24 HR PATCH T-DERMAL SCH (07:31)
--- NOTE | 2017-01-21 08:23 | HHI.PYPN ---
Subjective Remarks Patient seen today in her room with nurse Rodírguez, chart review, patient compliant with medication. Patient calm more focused today somewhat pleasant with me. No significant behavioral problems noted. For now continue treatment Review of Systems Except as stated in HPI: all other systems reviewed are Neg Objective Alert: Yes [place]: Person, Place Mood: Calm Affect: Euthymic, Labile (slightly) Memory Intact: Comment (poor) Hallucinations: Other (denies) Delusions: No Delusion Type: Other (denies) Suicidal: Ideation (denies) Homicidal: Ideation (denies denies) Insight/Judgment Poor Labs Test 01/20/17 12:03 Sodium Level 142 MEQ/L Potassium Level 4.0 MEQ/L Chloride Level 110 MEQ/L Carbon Dioxide Level 23.9 MEQ/L Anion Gap 8 MEQ/L Blood Urea Nitrogen 21 MG/DL Creatinine 0.99 MG/DL Estimat Glomerular Filtration 57 ML/MIN Rate Random Glucose 114 MG/DL Hemoglobin A1c 6.1 % Calcium Level 9.1 MG/DL Triglycerides Level 256 MG/DL Cholesterol Level 186 MG/DL LDL Cholesterol 102 MG/DL HDL Cholesterol 32.8 MG/DL Cholesterol/HDL Ratio 5.67 RATIO Vitals/IOs Vital Signs Date Time Temp Pulse Resp B/P Pulse Ox O2 Delivery O2 Flow Rate FiO2 01/21/17 06:11 97.7 101 15 156/85 99 Intake and Output 01/20/17 01/20/17 01/21/17 08:00 16:00 00:00 Intake Total 655 ml 1080 ml 480 ml Balance 655 ml 1080 ml 480 ml Assessment & Plan Problem List: (1) Acute kidney injury ICD Code: N17.9 (2) Other psychotic disorder not due to a substance or known physiological condition ICD Code: F28 Assessment & Plan Estimated LOS: days patient showing some improvement with her focused attention , but has been no significant behavioral problems. Compliant medications Justification for Cont. Inpt. At this time patient will decompensate if placed in a lower level of care Discharge Planning To be determined Request HC Surrog/Guard Advoc?: No Uday Crespo MD Jan 21, 2017 08:23
[2017-01-21 08:27] LABS: AUTOMATED NEUTROPHIL # 5.6 TH/MM3 (1.8-7.7); BASOPHIL % 0.4 % (0.0-2.0); EOSINOPHIL # 0.2 TH/MM3 (0-0.4); EOSINOPHIL % 2.1 % (0.0-4.0); HEMATOCRIT 29.9 % (35.0-46.0); HEMO FLAGS DIFF FINAL; LYMPH % 21.9 % (9.0-44.0); LYMPHOCYTE # 1.8 TH/MM3 (1.0-4.8); MEAN CELL VOLUME 88.4 FL (80.0-100.0); MEAN CORPUSCULAR HEMOGLOBIN 29.3 PG (27.0-34.0); MEAN CORPUSCULAR HGB CONC 33.2 % (32.0-36.0); MONO % 6.7 % (0.0-8.0); NEUT % 68.9 % (16.0-70.0); PLATELET COUNT 291 TH/MM3 (150-450); RED BLOOD COUNT 3.38 MIL/MM3 (4.00-5.30); RED CELL DISTRIBUTION WIDTH 13.9 % (11.6-17.2); WHITE BLOOD COUNT 8.1 TH/MM3 (4.0-11.0)
[2017-01-21] MEDS: LISINOPRIL 10 MG TAB PO SCH (08:45)
[2017-01-21] MEDS: HEPARIN SODIUM - SQ 10,000 UNITS/ML VIAL SQ SCH ×2 (08:45→21:30)
[2017-01-21] MEDS: PANTOPRAZOLE SOD 40 MG DELAYED RELEASE TAB PO SCH (08:45)
[2017-01-21 08:54] LABS: ALT (GPT) 35 U/L (10-53); ANION GAP 10 MEQ/L (5-15); AST (GOT) 31 U/L (15-37); BICARBONATE 25.6 MEQ/L (21.0-32.0); BLOOD UREA NITROGEN 11 MG/DL (7-18); CHLORIDE 107 MEQ/L (98-107); GLOMERULAR FILTRATION RATE 62 ML/MIN (>89); POTASSIUM 3.4 MEQ/L (3.5-5.1); SODIUM (NA) 143 MEQ/L (136-145)
[2017-01-21 08:59] LABS: ALKALINE PHOSPHATASE 115 U/L (45-117); CREATINE KINASE 115 U/L (26-192); TOTAL BILIRUBIN ADULT 0.3 MG/DL (0.2-1.0)
[2017-01-21] MEDS ORDERED: POTASSIUM CHLORIDE 20 MEQ CONTROLLED RELEASE TAB PO ONE (10:15)
[2017-01-21] MEDS: LACTOBACILLUS ACIDOPHILUS TAB PO SCH ×2 (10:56→21:29)
[2017-01-21] MEDS: cefTRIAXone INJ 1,000 MG in SODIUM CHLORIDE 0.9% INJ 100 ML IV SCH (12:02)
[2017-01-21] MEDS: LORazepam 1 MG TAB PO PRN (12:45)
[2017-01-21 17:30] VITALS: BP 163/100; PULSE 108; RESP 18; TEMP 98.4; O2SAT 97
[2017-01-21] MEDS ORDERED: ENALAPRILAT 2.5 MG/2 ML VIAL IV PUSH PRN (17:30)
--- NOTE | 2017-01-21 17:41 | HHI.PR ---
Subjective Remarks In bed, appears in nad. Says she was not eating much, K was noted low, replaced. Patient denies any n/v/d/c. No fever or chills. Objective Vitals Vital Signs Date Time Temp Pulse Resp B/P Pulse Ox O2 Delivery O2 Flow Rate FiO2 01/21/17 17:30 98.4 108 18 163/100 97 01/21/17 06:11 97.7 101 15 156/85 99 01/21/17 06:09 97.7 101 15 156/85 99 01/20/17 21:05 18 01/20/17 18:00 98.5 106 16 159/87 97 I/O 01/20/17 01/20/17 01/20/17 01/21/17 01/21/17 01/21/17 06:59 14:59 22:59 06:59 14:59 22:59 Intake Total 535 ml 480 ml 1200 ml 2988 ml 480 ml 120 ml Balance 535 ml 480 ml 1200 ml 2988 ml 480 ml 120 ml Intake Oral 100 ml 480 ml 1200 ml 20 ml 480 ml 120 ml IV Total 435 ml 2968 ml Tube Feeding 0 ml # Voids 2 2 3 Result Diagram: 01/21/17 0738 01/21/17 0758 Objective Remarks GENERAL: This is a well-nourished, well-developed patient, in no apparent distress. CARDIOVASCULAR: Regular rate and rhythm without murmurs, gallops, or rubs. RESPIRATORY: Clear to auscultation. Breath sounds equal bilaterally. No wheezes , rales, or rhonchi. GASTROINTESTINAL: Abdomen soft, non-tender, nondistended. Bowel sounds active 4. No guarding. MUSCULOSKELETAL: Extremities without clubbing, cyanosis, or edema. NEUROLOGICAL: Awake and alert. Cranial nerves II through XII intact. Motor and sensory grossly within normal limits. No focal neuro deficit. Normal speech. A/P Problem List: (1) Unspecified psychosis ICD Code: F29 Status: Acute (2) Acute kidney injury ICD Code: N17.9 Status: Acute (3) Sepsis ICD Code: A41.9 Status: Acute (4) Hypertension ICD Code: I10 Status: Chronic Assessment and Plan Patient is a 61-year-old female with primary medical history of depression, psychosis, hypertension, hyperlipidemia, thyroid nodules, questionable CKD who came into the hospital for altered mental status. Patient was found to have urinary tract infection and was treated with IV antibiotics and also to be continued until completed. She also was found to be on acute kidney failure with creatinine 5.61, IV fluid hydration was provided and continued when she was transferred to medical psychiatry unit. She is now in medical psychiatry unit for further evaluation of her other psychiatric condition. Consulted for medical management. Psychosis Depression Managed by psychiatry team Sepsis, metabolic encephalopathy Urinary tract infection Leukocytosis resolved Continue with Rocephin, complete date 5days Pierce catheter discontinued Microbiology Escherichia coli, pansensitive Metabolic acidosis. Resolved. DC sodium bicarbonate NS Acute kidney failure History of proteinuria Dehydration and sepsis/ATN contributing Normal Renal US Continue with current IV fluid hydration with sodium bicarbonate, monitor BUN and creatinine and avoid all nephrotoxic drugs Nephrology consulted in the inpatient and has followed the patient. Recommending achy I probably secondary to dehydration or possibility of ATN because of hypotension. Follow-up results for [place] and ANCA level. Continue IV fluid hydration. Avoid nephrotoxins Follow BUN/creatinine Suppressed TSH Thyroid studies and thyroid nodule workup as outpatient, this has no impact on current clinical presentation TSH is suppressed but T4 and T3 low normal Patient is being followed by Dr. Murdock and outpatient Hypokalemia. Replaced. Monitor and replace. DVT prophy ambulatory Code Status Full code Discussed Condition With Patient, nurse Suze Bernal MD Jan 21, 2017 17:41
[2017-01-21] MEDS: cloNIDine HCL 0.1 MG TAB PO PRN (17:45)
[2017-01-21] MEDS: REMOVE OLD NICOTINE PATCH T-DERMAL SCH (21:00)
[2017-01-22 05:50] VITALS: BP 144/65; PULSE 101; RESP 16; TEMP 98; O2SAT 95
[2017-01-22] MEDS: PANTOPRAZOLE SOD 40 MG DELAYED RELEASE TAB PO SCH (08:19)
[2017-01-22] MEDS: NICOTINE 21 MG/24 HR PATCH T-DERMAL SCH (08:19)
[2017-01-22] MEDS: LACTOBACILLUS ACIDOPHILUS TAB PO SCH ×2 (08:19→20:06)
[2017-01-22] MEDS: HEPARIN SODIUM - SQ 10,000 UNITS/ML VIAL SQ SCH ×2 (08:19→20:06)
[2017-01-22] MEDS: LISINOPRIL 10 MG TAB PO SCH (08:19)
[2017-01-22] MEDS: ACETAMINOPHEN 325 MG TAB PO PRN ×3 (08:25→20:06)
--- NOTE | 2017-01-22 08:35 | HHI.PR ---
Subjective Remarks In bed. Says she is eating but not much. Per nurse she was noted more depressed. Denies chest pain, sob, n/v. Had a loose stool. No fever or chills. Objective Vitals Vital Signs Date Time Temp Pulse Resp B/P Pulse Ox O2 Delivery O2 Flow Rate FiO2 01/22/17 05:50 98.0 101 16 144/65 95 01/21/17 17:30 98.4 108 18 163/100 97 I/O 01/21/17 01/21/17 01/21/17 01/22/17 01/22/17 01/22/17 07:00 15:00 23:00 07:00 15:00 23:00 Intake Total 2988 ml 480 ml 360 ml Balance 2988 ml 480 ml 360 ml Intake Oral 20 ml 480 ml 360 ml IV Total 2968 ml Tube Feeding 0 ml # Voids 3 2 1 Result Diagram: 01/21/17 0738 01/21/17 0758 Objective Remarks GENERAL: This is a well-nourished, well-developed patient, in no apparent distress. CARDIOVASCULAR: Regular rate and rhythm without murmurs, gallops, or rubs. RESPIRATORY: Clear to auscultation. Breath sounds equal bilaterally. No wheezes , rales, or rhonchi. GASTROINTESTINAL: Abdomen soft, non-tender, nondistended. Bowel sounds active 4. No guarding. MUSCULOSKELETAL: Extremities without clubbing, cyanosis, or edema. NEUROLOGICAL: Awake and alert. Cranial nerves II through XII intact. Motor and sensory grossly within normal limits. No focal neuro deficit. Normal speech. A/P Problem List: (1) Unspecified psychosis ICD Code: F29 Status: Acute (2) Acute kidney injury ICD Code: N17.9 Status: Acute (3) Sepsis ICD Code: A41.9 Status: Acute (4) Hypertension ICD Code: I10 Status: Chronic Assessment and Plan Patient is a 61-year-old female with primary medical history of depression, psychosis, hypertension, hyperlipidemia, thyroid nodules, questionable CKD who came into the hospital for altered mental status. Patient was found to have urinary tract infection and was treated with IV antibiotics and also to be continued until completed. She also was found to be on acute kidney failure with creatinine 5.61, IV fluid hydration was provided and continued when she was transferred to medical psychiatry unit. She is now in medical psychiatry unit for further evaluation of her other psychiatric condition. Consulted for medical management. Psychosis Depression Managed by psychiatry team Sepsis, metabolic encephalopathy Urinary tract infection Leukocytosis resolved Continue with Rocephin, complete date 5days. Can switch to ciprofloxacin PO at DC Pierce catheter discontinued Microbiology Escherichia coli, pansensitive Metabolic acidosis. Resolved. DC sodium bicarbonate NS Acute kidney failure History of proteinuria Dehydration and sepsis/ATN contributing Normal Renal US Continue with current IV fluid hydration with sodium bicarbonate, monitor BUN and creatinine and avoid all nephrotoxic drugs Nephrology consulted in the inpatient and has followed the patient. Recommending achy I probably secondary to dehydration or possibility of ATN because of hypotension. Follow-up results for [place] and ANCA level. Continue IV fluid hydration. Avoid nephrotoxins Follow BUN/creatinine Suppressed TSH Thyroid studies and thyroid nodule workup as outpatient, this has no impact on current clinical presentation TSH is suppressed but T4 and T3 low normal Patient is being followed by Dr. Murdock and outpatient Hypokalemia. Replaced. Monitor and replace. DVT prophy ambulatory Code Status Full code Discussed Condition With Patient, nurse Suze Bernal MD Jan 22, 2017 08:35
[2017-01-22] MEDS: SERTRALINE HCL 50 MG TAB PO SCH (10:48)
--- NOTE | 2017-01-22 11:30 | PD.TTN ---
Present for Treatment Team Treatment Team Staff: Provider, Nurse, Psych Therapist, Occupational Therapist Patient Problems 1. Discharge planning 2. Medication compliance 3. Knowledge deficit 4. Lack of coping skills Progress Toward Goals Provider Input: Dr. bolanos, patient's treating psychiatrist is making minor medication adjustment to address patient's mood. Nurse Input: KRISTINE Moore states audra is eating meals, taking her medication Psych Therapist Input: Counselor will contact patient's outpatient providers to ensure she is linked with follow-up in a timely manner Occupational Therapist Input: MARÍA Valencia will arrange appropriate inpatient groups to address patient's needs. Haily Cadet [facility] Jan 22, 2017 11:30
[2017-01-22] MEDS: CIPROFLOXACIN 250 MG TAB PO SCH ×2 (11:50→23:16)
[2017-01-22] MEDS: LORazepam 1 MG TAB PO PRN ×2 (13:33→20:05)
[2017-01-22 14:34] LABS: BICARBONATE 21.6 MEQ/L (21.0-32.0); POTASSIUM 3.2 MEQ/L (3.5-5.1)
--- NOTE | 2017-01-22 17:39 | HHI.PYPN ---
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 Jacob Gabriel, past medical history of hypertension hyperlipidemia and thyroid nodules who was admitted on 01/18/17 the medically floor for altered mental status secondary to acute kidney injury which during the course of this admission patient was seen by consult psychiatrist Dr. Avalos for complaints of altered sensorium, visual hallucinations, paranoia, increased disorganized behavior who recommended transfer to medical/psychiatric unit due to the patients increasing psychotic behavior which have been apparent for the past 2-3 weeks. As per chart patient over the weekend started to show some improvement with focused attention, no behavioral problems. As her medical team note today, patient to continue with Rocephin to complete 5 day treatment to switch to ciprofloxacin by mouth at discharge. Patient to also continue IV fluid hydration. Patient seen today with counselors and nurse: Chart reviewed. As per nursing patient was reported to feel a bit down this morning. Patient was found lying in hospital bed in [facility], calm and cooperative in interview. Patient states that she was transferred to the med/psych unit because she was seeing and talking to people who she hadnt seen. She recalls this getting worse, yelling at the television. Patient denies any previous episodes similar to his current presentation. She reports that she has outpatient follow-up with Dr. Gabriel and a primary care doctor. She states that she has a previous diagnosis of ADHD and depression as well as alcohol and hypnoticsedative use disorder (Fioricet). She states that she has been in contact with her since her admission but that he does not visit due to his current GI issues but speaks to him consistently over the phone. Patient states that over the weekend she had felt lonely. Her mood was okay. She states that this morning she had been feeling low but that she felt much better this morning speaking with the team. She denies any current suicidal homicidal ideations denies any auditory or visual hallucinations or delusions. Review of Systems Except as stated in HPI: all other systems reviewed are Neg Other No other somatic complaints Objective Alert: Yes [place]: Person, Place Mood: Depressed (reports feeling "low") Affect: Labile (slightly) Memory Intact: Comment (poor) Hallucinations: Other (denies) Delusions: No Delusion Type: Other (denies) Suicidal: Ideation (denies) Homicidal: Ideation (denies) Insight/Judgment Insight limited, and impulse control limited, judgment fair. Remarks Patient appears stated age, found in hospital [facility] [place], fair hygiene, slightly disheveled, cooperative with interview, fair eye contact. Speech slightly increased rate, normal tone and prosody. Speech fluent and spontaneous Labs Test 01/22/17 13:40 Sodium Level 141 MEQ/L Potassium Level 3.2 MEQ/L Chloride Level 106 MEQ/L Carbon Dioxide Level 21.6 MEQ/L Anion Gap 13 MEQ/L Blood Urea Nitrogen 14 MG/DL Creatinine 1.02 MG/DL Estimat Glomerular Filtration 55 ML/MIN Rate Random Glucose 113 MG/DL Calcium Level 9.4 MG/DL Vitals/IOs Vital Signs Date Time Temp Pulse Resp B/P Pulse Ox O2 Delivery O2 Flow Rate FiO2 01/22/17 05:50 98.0 101 16 144/65 95 Intake and Output 01/21/17 01/21/17 01/22/17 08:00 16:00 00:00 Intake Total 3108 ml 360 ml 360 ml Balance 3108 ml 360 ml 360 ml Assessment & Plan Problem List: (1) Acute kidney injury ICD Code: N17.9 (2) Other psychotic disorder not due to a substance or known physiological condition ICD Code: F28 Assessment & Plan Estimated LOS: 5-7 days. Patient currently with less reported disorganization , but continues to be noted to be somewhat labile. Patient denies any hallucinations or paranoia at this time. Patient to continue medical treatment as per primary medical team. Patient will be restarted on Zoloft 50 mg with upward titration for depression. If patient continues to be noted to be disorganized, with mood lability will consider starting Seroquel 25 mg by mouth twice a day. Collateral pending from Edis Leger. Discharge planning in progress Justification for Cont. Inpt. At this time patient will decompensate if placed in a lower level of care Discharge Planning In progress Request HC Surrog/Guard Advoc?: Sang Vazquez MD Jan 22, 2017 17:39
[2017-01-22 18:00] VITALS: BP 137/81; PULSE 105; RESP 16; TEMP 99; O2SAT 99
[2017-01-22] MEDS ORDERED: POTASSIUM CHLORIDE 25 MEQ EFFERVESCENT TAB PO ONE (19:00)
[2017-01-22] MEDS: REMOVE OLD NICOTINE PATCH T-DERMAL SCH (20:11)
[2017-01-23] MEDS: ACETAMINOPHEN 325 MG TAB PO PRN ×2 (00:16→21:16)
[2017-01-23 05:21] VITALS: BP 147/86; PULSE 67; RESP 18; TEMP 96.6; O2SAT 98
[2017-01-23] MEDS: LACTOBACILLUS ACIDOPHILUS TAB PO SCH ×2 (08:54→21:15)
[2017-01-23] MEDS: PANTOPRAZOLE SOD 40 MG DELAYED RELEASE TAB PO SCH (08:54)
[2017-01-23] MEDS: SERTRALINE HCL 50 MG TAB PO SCH (08:54)
[2017-01-23] MEDS: LISINOPRIL 10 MG TAB PO SCH (08:54)
[2017-01-23] MEDS: HEPARIN SODIUM - SQ 10,000 UNITS/ML VIAL SQ SCH ×2 (09:02→21:15)
[2017-01-23] MEDS: NICOTINE 21 MG/24 HR PATCH T-DERMAL SCH (09:02)
--- NOTE | 2017-01-23 09:23 | HHI.PR ---
Subjective Remarks Was able to eat today, K is back to normal. Encouraged PO intake and also PO hydration. She still feels anxious. No n/v/d/c. Denies chest pain, sob, palpitations. Objective Vitals Vital Signs Date Time Temp Pulse Resp B/P Pulse Ox O2 Delivery O2 Flow Rate FiO2 01/23/17 05:21 96.6 67 18 147/86 98 01/22/17 18:00 99.0 105 16 137/81 99 I/O 01/22/17 01/22/17 01/22/17 01/23/17 01/23/17 01/23/17 07:00 15:00 23:00 07:00 15:00 23:00 Intake Total 480 ml 840 ml 120 ml 120 ml Balance 480 ml 840 ml 120 ml 120 ml Intake Oral 480 ml 840 ml 120 ml 120 ml # Voids 1 2 2 Result Diagram: 01/21/17 0738 01/22/17 1340 Objective Remarks GENERAL: This is a well-nourished, well-developed patient, in no apparent distress. CARDIOVASCULAR: Regular rate and rhythm without murmurs, gallops, or rubs. RESPIRATORY: Clear to auscultation. Breath sounds equal bilaterally. No wheezes , rales, or rhonchi. GASTROINTESTINAL: Abdomen soft, non-tender, nondistended. Bowel sounds active 4. No guarding. MUSCULOSKELETAL: Extremities without clubbing, cyanosis, or edema. NEUROLOGICAL: Awake and alert. Cranial nerves II through XII intact. Motor and sensory grossly within normal limits. No focal neuro deficit. Normal speech. A/P Problem List: (1) Unspecified psychosis ICD Code: F29 Status: Acute (2) Acute kidney injury ICD Code: N17.9 Status: Acute (3) Sepsis ICD Code: A41.9 Status: Acute (4) Hypertension ICD Code: I10 Status: Chronic Assessment and Plan Patient is a 61-year-old female with primary medical history of depression, psychosis, hypertension, hyperlipidemia, thyroid nodules, questionable CKD who came into the hospital for altered mental status. Patient was found to have urinary tract infection and was treated with IV antibiotics and also to be continued until completed. She also was found to be on acute kidney failure with creatinine 5.61, IV fluid hydration was provided and continued when she was transferred to medical psychiatry unit. She is now in medical psychiatry unit for further evaluation of her other psychiatric condition. Consulted for medical management. Psychosis Depression Managed by psychiatry team Sepsis, metabolic encephalopathy Urinary tract infection Leukocytosis resolved Continue with Rocephin, complete date 5days. Can switch to ciprofloxacin PO at DC. Change rocephin to po ciprofloxacin PO until 01/25 . Pierce catheter discontinued Microbiology Escherichia coli, pansensitive Metabolic acidosis. Resolved. DC sodium bicarbonate NS Acute kidney failure History of proteinuria Dehydration and sepsis/ATN contributing Normal Renal US Continue with current IV fluid hydration with sodium bicarbonate, monitor BUN and creatinine and avoid all nephrotoxic drugs Nephrology consulted in the inpatient and has followed the patient. Recommending achy I probably secondary to dehydration or possibility of ATN because of hypotension. Follow-up results for [place] and ANCA level. Continue IV fluid hydration. Avoid nephrotoxins Follow BUN/creatinine Suppressed TSH Thyroid studies and thyroid nodule workup as outpatient, this has no impact on current clinical presentation TSH is suppressed but T4 and T3 low normal Patient is being followed by Dr. Murdock and outpatient Hypokalemia. Eating better. K back to normal. K was replaced. Monitor and replace as need. DVT prophy ambulatory Code Status Full code Discussed Condition With Patient, nurse Stable medically she can be discharged home to follow up as OP with PCP and consultants as indicated. The hospitalist will sign off Suze Bernal MD Jan 23, 2017 09:23
[2017-01-23 10:32] LABS: AUTOMATED NEUTROPHIL # 6.2 TH/MM3 (1.8-7.7); BASOPHIL # 0.1 TH/MM3 (0-0.2); BASOPHIL % 0.7 % (0.0-2.0); EOSINOPHIL # 0.2 TH/MM3 (0-0.4); EOSINOPHIL % 2.4 % (0.0-4.0); HEMATOCRIT 30.3 % (35.0-46.0); LYMPH % 26.3 % (9.0-44.0); LYMPHOCYTE # 2.6 TH/MM3 (1.0-4.8); MEAN CORPUSCULAR HEMOGLOBIN 29.9 PG (27.0-34.0); MEAN CORPUSCULAR HGB CONC 33.2 % (32.0-36.0); MONO % 7.7 % (0.0-8.0); NEUT % 62.9 % (16.0-70.0); PLATELET COUNT 269 TH/MM3 (150-450); RED BLOOD COUNT 3.37 MIL/MM3 (4.00-5.30); RED CELL DISTRIBUTION WIDTH 13.9 % (11.6-17.2); WHITE BLOOD COUNT 9.9 TH/MM3 (4.0-11.0)
[2017-01-23 10:33] LABS: HEMO FLAGS AUTO DIFF
[2017-01-23 10:46] LABS: POTASSIUM 4.2 MEQ/L (3.5-5.1)
[2017-01-23 11:05] LABS: PLATELET ESTIMATE SMEAR NORMAL (NORMAL); PLATELET MORPHOLOGY NORMAL (NORMAL); SCAN/DIFF AUTO DIFF CONFIRMED
[2017-01-23] MEDS: CIPROFLOXACIN 250 MG TAB PO SCH ×2 (11:50→23:31)
[2017-01-23] MEDS: LORazepam 1 MG TAB PO PRN ×2 (11:50→21:19)
--- NOTE | 2017-01-23 17:20 | HHI.PYPN ---
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 Jacob Gabriel, past medical history of hypertension hyperlipidemia and thyroid nodules who was admitted on 01/18/17 the medically floor for altered mental status secondary to acute kidney injury which during the course of this admission patient was seen by consult psychiatrist Dr. Avalos for complaints of altered sensorium, visual hallucinations, paranoia, increased disorganized behavior who recommended transfer to medical/psychiatric unit due to the patients increasing psychotic behavior which have been apparent for the past 2-3 weeks. Patient seen for follow-up with counselor; chart reviewed. As per nursing report patient was complaining of chronic left knee pain, no behavioral issues noted. Patient had poor by mouth intake but ate dinner last evening. Patient seen sitting on hospital bed noted to be calm and cooperative in interview. Patient states that she was feeling depressed this morning secondary to painful left knee its my trigger. She states that she had this pain chronically but more so since her admission to the hospital. Patient states that she is feeling much better since her admission and recalls having been told of her unusual behavior which she states cannot recall in full detail. Patient states that she feels much better and would like to go home. Patient mentions that she had missed several appointments with her doctors prior to admission and would like to resume them upon discharge. Patient noted that some pressured speech and some tangentiality which when addressed to the patient states that she does notice that she has some scattered thinking. Patient denied any previous manic or hypomanic symptoms in the past such as decrease need to sleep , irritability, racing thoughts, intents goal directed activities, or risky behaviors. Patient states that currently she has been having increased energy but feels that she feels anxious being here in hospital. Currently patient states feeling well and related go home, patient has been compliant with medications and denies any adverse drug reactions. Currently patient denies any SI, HI, AVH or delusions. Collateral: Artillery Specialist spoke with Mr. Leger which he feels that his is sounding better and better and feels that the patient is at baseline. He recalls that patient had recent episode which prompted her admission to the hospital and recalls a medication prescribed by her neurologist during the time of her behavioral symptoms. He states that the patient has traditionally taking all her medications as prescribed and had not noticed patient taking more than usual. He denies having known of any previous manic episodes from the patient in the past. He states that he would like to come in but due to his current medical issues is unable to at this time but reports speaking to his over the phone daily. Review of Systems Except as stated in HPI: all other systems reviewed are Neg Other Denies any other somatic complaints Objective Alert: Yes [place]: Person, Place, Date, Situation Mood: Anxious Affect: Labile, Other Memory Intact: Comment (poor) Hallucinations: Other (congruent with mood) Delusions: No Delusion Type: Other (denies) Suicidal: Ideation (denies) Homicidal: Ideation (denies) Insight/Judgment Fair insight, fair impulse control and judgment Labs Test 01/23/17 09:57 White Blood Count 9.9 TH/MM3 Red Blood Count 3.37 MIL/MM3 Hemoglobin 10.1 GM/DL Hematocrit 30.3 % Mean Corpuscular Volume 90.0 FL Mean Corpuscular Hemoglobin 29.9 PG Mean Corpuscular Hemoglobin 33.2 % Concent Red Cell Distribution Width 13.9 % Platelet Count 269 TH/MM3 Mean Platelet Volume 7.8 FL Neutrophils (%) (Auto) 62.9 % Lymphocytes (%) (Auto) 26.3 % Monocytes (%) (Auto) 7.7 % Eosinophils (%) (Auto) 2.4 % Basophils (%) (Auto) 0.7 % Neutrophils # (Auto) 6.2 TH/MM3 Lymphocytes # (Auto) 2.6 TH/MM3 Monocytes # (Auto) 0.8 TH/MM3 Eosinophils # (Auto) 0.2 TH/MM3 Basophils # (Auto) 0.1 TH/MM3 CBC Comment AUTO DIFF Differential Comment AUTO DIFF CONFIRMED Platelet Estimate NORMAL Platelet Morphology Comment NORMAL Red Cell Morphology Comment NORMAL Sodium Level 143 MEQ/L Potassium Level 4.2 MEQ/L Chloride Level 111 MEQ/L Carbon Dioxide Level 26.0 MEQ/L Anion Gap 6 MEQ/L Blood Urea Nitrogen 16 MG/DL Creatinine 1.03 MG/DL Estimat Glomerular Filtration 55 ML/MIN Rate Random Glucose 107 MG/DL Calcium Level 9.4 MG/DL Vitals/IOs Vital Signs Date Time Temp Pulse Resp B/P Pulse Ox O2 Delivery O2 Flow Rate FiO2 01/23/17 05:21 96.6 67 18 147/86 98 Intake and Output 01/22/17 01/22/17 01/23/17 08:00 16:00 00:00 Intake Total 360 ml 720 ml 240 ml Balance 360 ml 720 ml 240 ml Assessment & Plan Problem List: (1) Acute kidney injury ICD Code: N17.9 (2) Other psychotic disorder not due to a substance or known physiological condition ICD Code: F28 Assessment & Plan Estimated LOS: 3-5 days. Patient noted today to be anxious, noted to have slightly pressured speech and some tangentiality but as per collateral from states that this is how his is. Patient denies any but did report feeling depressed in the morning secondary to pain of her left knee. Patient denies any suicidality at this time and agrees to continue treatment. Increase sertraline 100 mg by mouth daily with upward titration for depression. Collateral pending from outpatient psychiatrist Dr. Quintana. Patient to continue recommendations as per primary medical team. Discharge planning in progress Justification for Cont. Inpt. Patient at risk for decompensation at lower level of care Discharge Planning And process Request HC Surrog/Guard Advoc?: No Sang Piper MD Jan 23, 2017 17:20
[2017-01-23] MEDS: cloNIDine HCL 0.1 MG TAB PO PRN (18:44)
[2017-01-23 18:45] VITALS: BP 164/82; PULSE 109; RESP 20; TEMP 98.1; O2SAT 96
[2017-01-23] MEDS: REMOVE OLD NICOTINE PATCH T-DERMAL SCH (21:00)
[2017-01-24 05:50] VITALS: BP 117/58; PULSE 82; RESP 15; TEMP 98.6; O2SAT 99
[2017-01-24] MEDS: ACETAMINOPHEN 325 MG TAB PO PRN (06:07)
[2017-01-24] MEDS: LORazepam 1 MG TAB PO PRN (06:07)
[2017-01-24] MEDS ORDERED: SERTRALINE HCL 100 MG TAB PO SCH (09:00)
[2017-01-24] MEDS: NICOTINE 21 MG/24 HR PATCH T-DERMAL SCH (09:00)
[2017-01-24] MEDS: PANTOPRAZOLE SOD 40 MG DELAYED RELEASE TAB PO SCH (09:00)
[2017-01-24] MEDS: HEPARIN SODIUM - SQ 10,000 UNITS/ML VIAL SQ SCH (09:00)
[2017-01-24] MEDS: LACTOBACILLUS ACIDOPHILUS TAB PO SCH (09:00)
[2017-01-24] MEDS: LISINOPRIL 10 MG TAB PO SCH (09:00)
[2017-01-24] MEDS ORDERED: PANT40TA3 PO (11:10)
[2017-01-24] MEDS ORDERED: LISI10TA3 PO (11:10)
[2017-01-24] MEDS ORDERED: CIPR250T52 PO (11:10)
[2017-01-24] MEDS ORDERED: ZOLO100T PO (11:10)
[2017-01-24] MEDS: CIPROFLOXACIN 250 MG TAB PO SCH (12:00)
--- NOTE | 2017-01-24 16:53 | HHI.DS ---
Psychiatry Discharge Summary Inpatient Psychiatric care?: Yes Advance Directive: Yes Mental Health AdvanceDirective: No Health Care Proxy: No Admission Admission Date Jan 19, 2017 at 18:45 Admission Diagnosis: (1) Acute kidney injury ICD Code: N17.9 (2) Other psychotic disorder not due to a substance or known physiological condition ICD Code: F28 Brief History Patient is a 61-year-old white female initially admitted to the medical service under visit [phone] on that appears to be 01/18 for acute kidney injury. She seen in consultation with Dr. Dennis who recommended transfer to the med psych unit due to patient's history of them increased psychotic behaviors out-of -control behaviors the past 2-3 weeks prior to the admission. Patient does have a history of mental health issues is being treated by local psychiatrist. Has been on various medications. Please see Dr. Dennis's dictation for full details. Patient seen by me today in her room on 4 E. she is alert better oriented calm and cooperative she does acknowledge the medical issues going on with her. Denies any voices or visions at the present time denies any suicidality homicidality. She states she has done well refrain long time on Wellbutrin and Zoloft. Will consider restarting those. 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 Jacob Gabriel, past medical history of hypertension hyperlipidemia and thyroid nodules who was admitted on 01/18/17 the medically floor for altered mental status secondary to acute kidney injury which during the course of this admission patient was seen by consult psychiatrist Dr. Avalos for complaints of altered sensorium, visual hallucinations, paranoia, increased disorganized behavior who recommended transfer to medical/psychiatric unit due to the patients increasing psychotic behavior which have been apparent for the past 2-3 weeks. Patient started to show some improvement with focused attention and no behavioral problems. Patient continued to be followed by medical team for acute kidney injury and had received Rocephin with switch to ciprofloxacin by mouth at discharge. Patient was restated on Sertraline with upward titration to 100mg. Patient continued to remain stable and no longer had exhibited disorganized behavior, oriented x 3, with plan to return to her outpatient provider for follow up and agrees to adhere to treatment. Patient at this time is psychiatrically stable to return home, no depressive, manic or psychotic symptoms at this time. Results Blood Pressure 117 / 58 Vital Signs Date Time Temp Pulse Resp B/P Pulse Ox O2 Delivery O2 Flow Rate FiO2 01/24/17 05:50 98.6 82 15 117/58 99 Laboratory Tests Test 01/22/17 01/23/17 13:40 09:57 Potassium Level 3.2 MEQ/L (3.5-5.1) Creatinine 1.02 MG/DL 1.03 MG/DL (0.50-1.00) (0.50-1.00) Estimat Glomerular Filtration 55 ML/MIN (>89) 55 ML/MIN (>89) Rate Random Glucose 113 MG/DL 107 MG/DL (74-106) (74-106) Red Blood Count 3.37 MIL/MM3 (4.00-5.30) Hemoglobin 10.1 GM/DL (11.6-15.3) Hematocrit 30.3 % (35.0-46.0) Chloride Level 111 MEQ/L (98-107) Laboratory Results Test 01/20/17 12:03 Hemoglobin A1c 6.1 % (4.3-6.0) Triglycerides Level 256 MG/DL (42-150) Cholesterol Level 186 MG/DL (120-200) LDL Cholesterol 102 MG/DL (0-99) HDL Cholesterol 32.8 MG/DL (40.0-60.0) Summary of Procedures None Pending results at discharge: No Medications # of Antipsychotic meds at D/C: 0 Approp Antipsych med options 1 - Minimum of three failed multiple trials of monotherapy. 2 - Documented plan to taper to monotherapy due to previous use of multiple meds OR cross-taper in progress at D/C. 3 - Documentation of augmentation of Clozapine. 4 - Justification other than those listed in allowable values 1-3, document here : Discharge Discharge Date: Jan 24, 2017 Discharge Diagnosis: (1) Acute kidney injury Diagnosis: Principal ICD Code: N17.9 (2) Delirium due to medical condition with behavioral disturbance Diagnosis: Principal ICD Code: F05 Mental Status Exam at Disch Patient appears stated age, fair hygiene, fair grooming, calm and cooperative with interview, eye contact fair, Speech normal rate tone and prosody Language fluid and spontaneous Mood: "Good" Affect: Euthymic Thought process: Linear goal-directed Thought content denies SI, HI, AVH or delusions Insight, impulse control and judgment: Fair Alert and oriented 3 Pt Condition on Discharge: Fair Discharge Disposition: Discharge Home Discharge Instructions Diet Instructions: As Tolerated, No Restrictions Activities you can perform: Regular-No Restrictions Scheduled Appointment: Private Psychiatrist Appointment Date: Jan 31, 2017 Appointment Time: 11:15a.m. Discharge Time > 30 minutes Discharge/Advance Care Plan Health Problems: (1) Acute kidney injury (2) Other psychotic disorder not due to a substance or known physiological condition Goals to promote your health * To prevent worsening of your condition and complications * To maintain your health at the optimal level Directions to meet your goals Take your medications as prescribed Follow your dietary instruction Follow activity as directed Keep your appointments as scheduled Take your immunizations and boosters as scheduled If your symptoms worsen call your PCP, if no PCP go to Urgent Care Center or Emergency Room For 15/01 questions related to your inpatient stay or results of tests pending at discharge, please contact Dr. Sang Piper at Smoking is Dangerous to Your Health. Avoid second hand smoking Sang Piper MD Jan 24, 2017 16:53
== END 2017-01-24 15:10 | disposition home or self-care (01) | DRG 880 ==
LOC: H4EA 18:45
PROVIDERS: ADMIT Student in an Organized Health Care Education/Training Program; ATTEND Student in an Organized Health Care Education/Training Program
DX: F05 Delirium due to known physiological condition (principal); N17.0 Acute kidney failure with tubular necrosis; G93.41 Metabolic encephalopathy; A41.9 Sepsis, unspecified organism; E87.2 Acidosis; N39.0 Urinary tract infection, site not specified; F25.9 Schizoaffective disorder, unspecified; I12.9 Hypertensive chronic kidney disease with stage 1 through stage 4 chronic kidney disease, or unspecified chronic kidney disease; E04.2 Nontoxic multinodular goiter; E78.5 Hyperlipidemia, unspecified; N18.9 Chronic kidney disease, unspecified; F10.21 Alcohol dependence, in remission; F17.210 Nicotine dependence, cigarettes, uncomplicated; F11.21 Opioid dependence, in remission; E86.0 Dehydration; E87.6 Hypokalemia; B96.20 Unspecified Escherichia coli [E. coli] as the cause of diseases classified elsewhere; F32.9 Major depressive disorder, single episode, unspecified; F90.9 Attention-deficit hyperactivity disorder, unspecified type; G89.29 Other chronic pain; M25.562 Pain in left knee
CPT/HCPCS: 80048; 80053; 80061; 82550; 83036; 85025; J0696; J1644

== ENCOUNTER 2017-03-07 16:05 | Inpatient (IN) | payer BC ==
[~2017-03-07] VITALS: Ht 154.9 cm; Wt 65.8 kg
[~2017-03-07 16:05] MED LIST changes: +CIPR250T52 PO; +PANT40TA3 PO; +ZOLO100T PO
[2017-03-07 16:33] VITALS: BP 120/58; PULSE 64; RESP 16; TEMP 98; O2SAT 94
[2017-03-07] MEDS ORDERED: MORPHINE SULFATE 4 MG/ML INJ IV PUSH ONE (16:45)
[2017-03-07] MEDS ORDERED: ONDANSETRON HCL 4 MG/2 ML VIAL IV PUSH ONE (16:45)
[2017-03-07] MEDS ORDERED: SODIUM CHLORID 0.9% 500 ML INJ 500 ML IV ONE ×2 (16:45→19:15)
[2017-03-07] MEDS ORDERED: SODIUM CHLORIDE 0.9% FLUSH 10 ML FLUSH IVF PRN (16:45)
--- NOTE | 2017-03-07 16:47 | PD ---
HPI Chief Complaint: Injury Time Seen by Provider: 16:42 Travel History International Travel<30 days: No Contact w/Intl Traveler<30days: No Traveled to known affect area: No History of Present Illness HPI 62-year-old female brought in by ambulance status post fall. Patient has complaints of left ankle and foot pain as well as right foot pain. Patient has a history of twisting her ankle 2 days ago, and then reinjuring it today causing her to fall. Patient is somewhat vague as to why she fell, and I suspect possible syncope. She describes her legs is just quite going out from under her. Currently her pain is 10 out of 10 in the left ankle and foot. She also is unable to bear weight on the right foot as well. There is no open wounds. Patient denies headache or loss of consciousness. She denies head injury. Patient denies any other injuries to her extremities or core. Patient has no known drug allergies. PFSH Past Medical History Anxiety: Yes Depression: Yes Cancer: No Cardiovascular Problems: No High Cholesterol: Yes Diabetes: No Endocrine: No Genitourinary: Yes Headaches: No Hypertension: Yes Immune Disorder: No Implanted Vascular Access Dvce: No Musculoskeletal: No Neurologic: No Psychiatric: Yes (some depression and recovering alcoholic ) Reproductive: No Respiratory: No Seizures: No Past Surgical History Other Surgery: No Social History Alcohol Use: No Tobacco Use: No Substance Use: No Allergies-Medications (Allergen,Severity, Reaction): Coded Allergies: No Known Allergies (Unverified , 01/18/17) Reported Meds & Prescriptions Reported Meds & Active Scripts Active Cipro (Ciprofloxacin HCl) 250 Mg Tab 250 Mg PO Q12H Lisinopril 10 Mg Tab 10 Mg PO DAILY Pantoprazole (Pantoprazole Sodium) 40 Mg Tab 40 Mg PO DAILY Zoloft (Sertraline HCl) 100 Mg Tab 100 Mg PO DAILY Reported Percocet (Oxycodone-Acetaminophen) 10-325 mg Tab 1 Tab PO Q6H PRN Lisinopril 10 Mg Tab 10 Mg PO DAILY Percocet (Oxycodone-Acetaminophen) 10-325 mg Tab 1 Tab PO Q6H PRN Xanax Xr 24 HR (Alprazolam) 0.5 Mg Tab 0.5 Mg PO HS Take tablet intact, preferably in the morning. Clonazepam 1 Mg Tab 1 Mg PO DIRECTED Wellbutrin Xl 24 HR (Bupropion HCl) 300 Mg Tab 300 Mg PO DAILY Sertraline (Sertraline HCl) 100 Mg Tab 150 Mg PO DAILY Hydrochlorothiazide 12.5 Mg Cap 12.5 Mg PO DAILY Review of Systems ROS Limitations: Poor Historian Except as stated in HPI: all other systems reviewed are Neg General / Constitutional: No: Fever Eyes: No: Visual changes HENT: No: Headaches Cardiovascular: No: Chest Pain or Discomfort Respiratory: No: Shortness of Breath Gastrointestinal: No: Abdominal Pain Genitourinary: No: Dysuria Musculoskeletal: Positive: Arthralgias, Limited ROM, Pain (see history present illness.) Skin: No Rash Neurologic: No: Weakness Psychiatric: No: Depression Endocrine: No: Polydipsia Hematologic/Lymphatic: No: Easy Bruising Physical Exam Exam Limitations: Poor Historian Narrative GENERAL: Patient appears in mild to moderate distress. SKIN: Warm and dry. Normal color. Normal turgor. Patient is noted to have old ecchymosis to both dorsal feet, and left ankle. There is no obvious abrasions or deformities noted. HEAD: Atraumatic. Normocephalic. EYES: Pupils equal and round. No scleral icterus. No injection or drainage. ENT: No nasal bleeding or discharge. Mucous membranes pink and moist. NECK: Trachea midline. No JVD. CARDIOVASCULAR: Regular rate and rhythm. RESPIRATORY: No accessory muscle use. Clear to auscultation. Breath sounds equal bilaterally. GASTROINTESTINAL: Abdomen soft, non-tender, nondistended. Hepatic and splenic margins not palpable. MUSCULOSKELETAL: Extremities without clubbing, cyanosis, or edema. No obvious deformities. Patient has swelling to both feet to the dorsal aspect with ecchymosis noted. Patient has pain with palpation to both feet and left ankle. Range of motion is definitely diminished secondary to pain. Patient is able to wiggle her toes and has normal sensation and capillary refill bilaterally. NEUROLOGICAL: Awake and alert. No obvious cranial nerve deficits. Motor grossly within normal limits. Five out of 5 muscle strength in the arms and legs. Normal speech. PSYCHIATRIC: Appropriate mood and affect; insight and judgment normal. Data Data Last Documented VS Vital Signs Date Time Temp Pulse Resp B/P (MAP) Pulse Ox O2 Delivery O2 Flow Rate FiO2 03/07/17 16:33 98.0 64 16 120/58 (78) 94 Orders Orders Electrocardiogram (03/07/17 16:38) Complete Blood Count With Diff (03/07/17 16:38) Comprehensive Metabolic Panel (03/07/17 16:38) Magnesium (Mg) (03/07/17 16:38) Urinalysis - C+S If Indicated (03/07/17 16:38) Chest, Single Ap (03/07/17 16:38) Ecg Monitoring (03/07/17 16:38) Iv Access Insert/Monitor (03/07/17 16:38) Oximetry (03/07/17 16:38) Sodium Chloride 0.9% Flush (Ns Flush) (03/07/17 16:45) Sodium Chlorid 0.9% 500 Ml Inj (Ns 500 M (03/07/17 16:45) Morphine Inj (Morphine Inj) (03/07/17 16:45) Ondansetron Inj (Zofran Inj) (03/07/17 16:45) Ankle, Complete ([id number]) (03/07/17 16:38) Foot, Complete ([id number]) (03/07/17 16:38) Ice/Cold Pack (03/07/17 16:38) Foot, Complete ([id number]) (03/07/17 16:38) Splinting (03/07/17 ) Hydromorphone Pf Inj (Dilaudid Pf Inj) (03/07/17 18:15) Sodium Chlorid 0.9% 500 Ml Inj (Ns 500 M (03/07/17 19:15) Admit Order (Ed Use Only) (03/07/17 19:44) Diet Heart Healthy (03/08/17 Breakfast) Labs Laboratory Tests Test 03/07/17 17:55 White Blood Count 8.3 TH/MM3 Red Blood Count 3.51 MIL/MM3 Hemoglobin 10.5 GM/DL Hematocrit 32.9 % Mean Corpuscular Volume 93.7 FL Mean Corpuscular Hemoglobin 29.9 PG Mean Corpuscular Hemoglobin Concent 31.9 % Red Cell Distribution Width 15.4 % Platelet Count 220 TH/MM3 Mean Platelet Volume 10.0 FL Neutrophils (%) (Auto) 76.3 % Lymphocytes (%) (Auto) 14.9 % Monocytes (%) (Auto) 7.6 % Eosinophils (%) (Auto) 0.9 % Basophils (%) (Auto) 0.3 % Neutrophils # (Auto) 6.3 TH/MM3 Lymphocytes # (Auto) 1.2 TH/MM3 Monocytes # (Auto) 0.6 TH/MM3 Eosinophils # (Auto) 0.1 TH/MM3 Basophils # (Auto) 0.0 TH/MM3 CBC Comment DIFF FINAL Differential Comment Blood Urea Nitrogen 59 MG/DL Creatinine 2.16 MG/DL Random Glucose 85 MG/DL Total Protein 7.8 GM/DL Albumin 3.6 GM/DL Calcium Level 9.6 MG/DL Magnesium Level 3.6 MG/DL Alkaline Phosphatase 79 U/L Aspartate Amino Transf (AST/SGOT) 92 U/L Alanine Aminotransferase (ALT/SGPT) 69 U/L Total Bilirubin 0.4 MG/DL Sodium Level 140 MEQ/L Potassium Level 4.6 MEQ/L Chloride Level 112 MEQ/L Carbon Dioxide Level 13.8 MEQ/L Anion Gap 14 MEQ/L Estimat Glomerular Filtration Rate 23 ML/MIN MDM Medical Decision Making Medical Screen Exam Complete: Yes Emergency Medical Condition: Yes Medical Record Reviewed: Yes Differential Diagnosis Possible syncope. Left ankle sprain. Left ankle fracture. Left foot sprain, left foot fracture. Right foot sprain. Right foot fracture. Narrative Course Patient is in pain but appears medically stable at time of exam. IV access is obtained basic labs are ordered including CBC, CMP, and urinalysis. Chest x-ray is ordered as well as EKG. X-rays of the left ankle and foot are ordered as well as x-rays of the right foot. Patient is given 4 mg Zofran IV as well as 4 mg morphine IV. X-rays of the right foot are negative for fracture. X-rays of the left ankle shows a bimalleolar fracture with minimal displacement. Call was placed to the orthopedist manager of organizational development. [employer] are called for a Hilliard splint placement. Patient is discussed with Dr. Newsome, the orthopedic on-call who recommends admitting the patient to the hospitalist service and making her nothing by mouth after midnight. CBC shows mild anemia which is actually better than normal for the patient at 10.5 hemoglobin, hematocrit is 32.9. Chemistry is significant for chloride of 112, carbon dioxide of 13.8, BUN is 59 , creatinine is 2.16 with a GFR of 23. Magnesium is 3.6, AST is 92 and ALT is 69. Patient is discussed with Dr. Damon the hospitalist manager of organizational development for admission. Diagnosis Primary Impression: Closed bimalleolar fracture of left ankle Qualified Codes: S82.842A - Displaced bimalleolar fracture of left lower leg, initial encounter for closed fracture Additional Impression: Creatinine elevation Admitting Information Admitting Physician Requests: Admit Condition: Stable Jose Cisneros Mar 07, 2017 16:47
--- NOTE | 2017-03-07 17:39 | RADRPT ---
EXAM DATE/TIME: 03/07/2017 17:18 [facility] COMPARISON: CHEST SINGLE AP, January 18, 2017, 10:39. INDICATIONS : Shortness of breath. MEDICAL HISTORY : None. SURGICAL HISTORY : None. ENCOUNTER: Initial ACUITY: 1 day PAIN SCORE: 0/10 LOCATION: Bilateral chest FINDINGS: A single view of the chest demonstrates the lungs to be symmetrically aerated without evidence of mas s, infiltrate or effusion. The cardiomediastinal contours are unremarkable. Osseous structures are intact. CONCLUSION: No acute disease. Jacob Sullivan MD FACR on March 07, 2017 at 17:37 Board Certified Radiologist. This report was verified electronically.
--- NOTE | 2017-03-07 17:39 | RADRPT ---
EXAM DATE/TIME: 03/07/2017 17:10 [facility] COMPARISON: No previous studies available for comparison. INDICATIONS : Left foot pain, fall. MEDICAL HISTORY : None. SURGICAL HISTORY : None. ENCOUNTER: Initial ACUITY: 1 day PAIN SCORE: 5/10 LOCATION: Left medial foot FINDINGS: Ankle fracture is again seen. Forefoot and hindfoot are intact. CONCLUSION: Ankle fracture. Jacob Sullivan MD FACR on March 07, 2017 at 17:36 Board Certified Radiologist. This report was verified electronically.
--- NOTE | 2017-03-07 17:40 | RADRPT ---
EXAM DATE/TIME: 03/07/2017 17:04 [facility] COMPARISON: No previous studies available for comparison. INDICATIONS : Right foot pain, fall. MEDICAL HISTORY : None. SURGICAL HISTORY : None. ENCOUNTER: Initial ACUITY: 1 day PAIN SCORE: 10/10 LOCATION: Right lateral foot FINDINGS: Three view examination of the right foot demonstrates no soft tissue swelling, dislocation, or fractu re. The tarsal bones appear intact. The interphalangeal and metatarsophalangeal joints are intact. The calcaneus is intact. Bony mineralization is normal. CONCLUSION: Negative for fracture. Jacob Sullivan MD FACR on March 07, 2017 at 17:38 Board Certified Radiologist. This report was verified electronically.
--- NOTE | 2017-03-07 17:40 | RADRPT ---
EXAM DATE/TIME: 03/07/2017 17:08 [facility] COMPARISON: No previous studies available for comparison. INDICATIONS : Left ankle pain, fall. MEDICAL HISTORY : None. SURGICAL HISTORY : None. ENCOUNTER: Initial ACUITY: 1 day PAIN SCORE: 10/10 LOCATION: Left lateral ankle FINDINGS: Bimalleolar ankle fracture present. Talar dome is intact. The moderate soft tissue swelling is evid ent. CONCLUSION: Bimalleolar ankle fracture. Jacob Sullivan MD FACR on March 07, 2017 at 17:37 Board Certified Radiologist. This report was verified electronically.
[2017-03-07] MEDS ORDERED: HYDROmorphone HCL PF 1 MG/ML VIAL IV PUSH ONE (18:15)
[2017-03-07 18:22] LABS: AUTOMATED NEUTROPHIL # 6.3 TH/MM3 (1.8-7.7); BASOPHIL % 0.3 % (0.0-2.0); EOSINOPHIL # 0.1 TH/MM3 (0-0.4); EOSINOPHIL % 0.9 % (0.0-4.0); HEMATOCRIT 32.9 % (35.0-46.0); HEMO FLAGS DIFF FINAL; LYMPH % 14.9 % (9.0-44.0); LYMPHOCYTE # 1.2 TH/MM3 (1.0-4.8); MEAN CELL VOLUME 93.7 FL (80.0-100.0); MEAN CORPUSCULAR HEMOGLOBIN 29.9 PG (27.0-34.0); MEAN CORPUSCULAR HGB CONC 31.9 % (32.0-36.0); MONO % 7.6 % (0.0-8.0); NEUT % 76.3 % (16.0-70.0); PLATELET COUNT 220 TH/MM3 (150-450); RED BLOOD COUNT 3.51 MIL/MM3 (4.00-5.30); RED CELL DISTRIBUTION WIDTH 15.4 % (11.6-17.2); WHITE BLOOD COUNT 8.3 TH/MM3 (4.0-11.0)
[2017-03-07 18:29] LABS: ANION GAP 14 MEQ/L (5-15); AST (GOT) 92 U/L (15-37); BICARBONATE 13.8 MEQ/L (21.0-32.0); BLOOD UREA NITROGEN 59 MG/DL (7-18); CHLORIDE 112 MEQ/L (98-107); GLOMERULAR FILTRATION RATE 23 ML/MIN (>89); MAGNESIUM 3.6 MG/DL (1.5-2.5); POTASSIUM 4.6 MEQ/L (3.5-5.1); SODIUM (NA) 140 MEQ/L (136-145)
[2017-03-07 18:33] LABS: ALKALINE PHOSPHATASE 79 U/L (45-117); ALT (GPT) 69 U/L (10-53); TOTAL BILIRUBIN ADULT 0.4 MG/DL (0.2-1.0)
[2017-03-07] MEDS ORDERED: PERC10TA27 PO (19:06)
[2017-03-07] MEDS ORDERED: SODIUM CHLOR 0.9% 1000 ML INJ 1,000 ML IV SCH (20:56)
[2017-03-07] MEDS ORDERED: MAGNESIUM HYDROXIDE SUSP 30 ML CUP PO PRN (21:00)
[2017-03-07] MEDS ORDERED: LACTULOSE SYRUP 20 GM/30 ML CUP PO PRN (21:00)
[2017-03-07] MEDS ORDERED: NALOXONE HCL 0.4 MG/ML AMP IV PUSH PRN (21:00)
[2017-03-07] MEDS ORDERED: ACETAMINOPHEN 325 MG TAB PO PRN (21:00)
[2017-03-07] MEDS ORDERED: ONDANSETRON HCL 4 MG/2 ML VIAL IVP PRN (21:00)
[2017-03-07 22:02] VITALS: BP 140/88; TEMP 98.2
[2017-03-07 22:17] VITALS: BP 113/59; PULSE 110; RESP 18; TEMP 99.2; O2SAT 95
[2017-03-07] MEDS ORDERED: INSULIN HUMAN REGULAR 1,000 UNITS/10 ML VIAL SQ PRN (23:00)
[2017-03-07] MEDS ORDERED: SODIUM CHLORID 0.9% 500 ML IV PRN (23:00)
[2017-03-07] MEDS ORDERED: LACTATED RINGER'S 1000 ML IV PRN (23:00)
[2017-03-07] MEDS ORDERED: POVIDONE IODINE 5% (ANTISEPSIS KIT) 4 APPLICATIONS EACH NARE PRN (23:00)
[2017-03-07] MEDS ORDERED: CHLORHEXIDINE GLUCONATE 2 % 1 PACK (2 CLOTHS) TOPICAL PRN (23:00)
[2017-03-07 23:26] VITALS: BP 128/75; PULSE 112; RESP 18; TEMP 99; O2SAT 95
[2017-03-08] MEDS ORDERED: HYDROmorphone HCL PF 0.5 MG/0.5 ML SYRINGE IV PUSH PRN (00:30)
[2017-03-08] MEDS: HYDROmorphone HCL PF 1 MG/ML VIAL IV PUSH PRN ×3 (00:45→17:45)
--- NOTE | 2017-03-08 01:58 | HHI.HP ---
[facility] Reginald Borges MD Admission Diagnosis Unstable Left Ankle fracture/Elevated Creatinine Diagnoses: Chief Complaint: left ankle pain Travel History International Travel<30 Days: No Contact w/Intl Traveler <30 Da: No Traveled to Known Affected Are: No History of Present Illness 62 y/o female with a history of anxiety, depression, HLD, HTN, GERD, and tyroid nodules presented to the ED with complaints of left ankle pain. Patient states she fell maybe 4-5 days, she is really unsure, and refused to come to the hospital at that time. Then she fell again and had pain in both ankles so he brought her in. She denies any chest pain, sob, or dizziness prior to the fall. She denies hitting her head. She states she does not know why she fell , she says he legs became weak and she just fell. She states the pain is a constant throbbing pain in her left ankle, 8/10, improves with medication. She states she can not walk. She is acting somewhat strange, and is a little confused about the events prior to falling. Review of Systems Except as stated in HPI: all other systems reviewed are Neg Past Family Social History Past Medical History HTN HLD Thyroid nodules being followed by Dr. Murdock Anxiety Depression Past Surgical History Patient denies any surgical history Reported Medications Reported Meds & Active Scripts Active Cipro (Ciprofloxacin HCl) 250 Mg Tab 250 Mg PO Q12H Lisinopril 10 Mg Tab 10 Mg PO DAILY Pantoprazole (Pantoprazole Sodium) 40 Mg Tab 40 Mg PO DAILY Zoloft (Sertraline HCl) 100 Mg Tab 100 Mg PO DAILY Reported Percocet (Oxycodone-Acetaminophen) 10-325 mg Tab 1 Tab PO Q6H PRN Lisinopril 10 Mg Tab 10 Mg PO DAILY Percocet (Oxycodone-Acetaminophen) 10-325 mg Tab 1 Tab PO Q6H PRN Xanax Xr 24 HR (Alprazolam) 0.5 Mg Tab 0.5 Mg PO HS Take tablet intact, preferably in the morning. Clonazepam 1 Mg Tab 1 Mg PO DIRECTED Wellbutrin Xl 24 HR (Bupropion HCl) 300 Mg Tab 300 Mg PO DAILY Sertraline (Sertraline HCl) 100 Mg Tab 150 Mg PO DAILY Hydrochlorothiazide 12.5 Mg Cap 12.5 Mg PO DAILY Allergies: Coded Allergies: No Known Allergies (Unverified , 01/18/17) Active Ordered Medications Current Medications Medications (Trade) Dose Ordered Sig/Bertin Route Start Time Stop Time Status Last Admin (NS Flush) 2 ml UNSCH PRN IVF 03/07/17 16:45 Sodium Chloride 1,000 ml @ 100 mls/hr Q10H IV 03/07/17 20:56 03/08/17 00:05 (Tylenol) 650 mg Q4H PRN PO 03/07/17 21:00 (Zofran Inj) 4 mg Q6H PRN IVP 03/07/17 21:00 (Narcan Inj) 0.4 mg UNSCH PRN IV PUSH 03/07/17 21:00 (Milk Of Magnesia Liq) 30 ml Q12H PRN PO 03/07/17 21:00 (Lactulose Liq) 30 ml DAILY PRN PO 03/07/17 21:00 Lactated Ringer's 1,000 ml @ 30 mls/hr Q24H PRN IV 03/07/17 23:00 03/10/17 22:59 Sodium Chloride 500 ml @ 30 mls/hr [id number] PRN IV 03/07/17 23:00 03/10/17 22:59 (Betadine 5% Antisepsis Kit) 1 applic LEGAL TRANSCRIPTIONIST PRN EACH NARE 03/07/17 23:00 03/10/17 22:59 (Chlorhexidine 2% Cloth) 3 pack LEGAL TRANSCRIPTIONIST PRN TOPICAL 03/07/17 23:00 03/10/17 22:59 (NovoLIN R INJ) See Protocol Table ... LEGAL TRANSCRIPTIONIST PRN SQ 03/07/17 23:00 03/10/17 22:59 (Dilaudid Pf Inj) 0.2 mg Q4H PRN IV PUSH 03/08/17 00:45 03/08/17 00:45 Family History Father of glioblastoma Mother of coronary event status post CABG Social History Recovering alcohol addict - last alcohol use March 1998 Currently smoker half a pack per day Recovering drug addict - Fioricet addiction last use March 1998 Physical Exam Vital Signs Vital Signs Date Time Temp Pulse Resp B/P (MAP) Pulse Ox O2 Delivery O2 Flow Rate FiO2 03/07/17 23:26 99.0 112 18 128/75 (92) 95 03/07/17 22:17 99.2 110 18 113/59 (77) 95 03/07/17 22:02 98.2 80 16 140/88 (105) 99 03/07/17 16:33 98.0 64 16 120/58 (78) 94 Physical Exam GENERAL: This is a well-nourished, well-developed patient, in no apparent distress. SKIN: Left ankle splinted, warm to touch, good cap refill HEAD: Atraumatic. Normocephalic. EYES: Pupils equal round and reactive. ENT: Nose without bleeding, purulent drainage or septal hematoma. Airway patent. NECK: Trachea midline. No JVD CARDIOVASCULAR: Regular rate and rhythm without murmurs, gallops, or rubs. RESPIRATORY: Clear to auscultation. Breath sounds equal bilaterally. No wheezes , rales, or rhonchi. GASTROINTESTINAL: Abdomen soft, non-tender, nondistended. MUSCULOSKELETAL:Left ankle pain, able to wiggle toes, right ankle with +1 edema NEUROLOGICAL: Awake and alert, confused with events. Motor and sensory grossly within normal limits. Normal speech. Laboratory Laboratory Tests Test 03/07/17 17:55 White Blood Count 8.3 Red Blood Count 3.51 Hemoglobin 10.5 Hematocrit 32.9 Mean Corpuscular Volume 93.7 Mean Corpuscular Hemoglobin 29.9 Mean Corpuscular Hemoglobin Concent 31.9 Red Cell Distribution Width 15.4 Platelet Count 220 Mean Platelet Volume 10.0 Neutrophils (%) (Auto) 76.3 Lymphocytes (%) (Auto) 14.9 Monocytes (%) (Auto) 7.6 Eosinophils (%) (Auto) 0.9 Basophils (%) (Auto) 0.3 Neutrophils # (Auto) 6.3 Lymphocytes # (Auto) 1.2 Monocytes # (Auto) 0.6 Eosinophils # (Auto) 0.1 Basophils # (Auto) 0.0 CBC Comment DIFF FINAL Differential Comment Blood Urea Nitrogen 59 Creatinine 2.16 Random Glucose 85 Total Protein 7.8 Albumin 3.6 Calcium Level 9.6 Magnesium Level 3.6 Alkaline Phosphatase 79 Aspartate Amino Transf (AST/SGOT) 92 Alanine Aminotransferase (ALT/SGPT) 69 Total Bilirubin 0.4 Sodium Level 140 Potassium Level 4.6 Chloride Level 112 Carbon Dioxide Level 13.8 Anion Gap 14 Estimat Glomerular Filtration Rate 23 Result Diagram: 03/07/17 1755 03/07/17 1755 Imaging Last Impressions Foot X-Ray 03/07/17 1638 Signed Impressions: Service Date/Time: Tuesday, March 07, 2017 17:10 - CONCLUSION: Ankle fracture. Jacob Sullivan MD FACR Chest X-Ray 03/07/17 163 Signed Impressions: Service Date/Time: Tuesday, March 07, 2017 17:18 - CONCLUSION: No acute disease. Jacob Sullivan MD FACR Ankle X-Ray 03/07/171637 Signed Impressions: Service Date/Time: Tuesday, March 07, 2017 17:08 - CONCLUSION: Bimalleolar ankle fracture. Jacob Sullivan MD FACR Caprini VTE Risk Assessment Caprini VTE Risk Assessment: Mod/High Risk (score >= 2) VTE Pharm Contraindication: surgery Caprini Risk Assessment Model Point Value = 1 Point Value = 2 Point Value = 3 Point Value = 5 Age 41-60 Minor surgery BMI > 25 kg/m2 Swollen legs Varicose veins or History of unexplained or recurrent spontaneous Oral contraceptives or hormone replacement Sepsis (< 1 month) Serious lung disease, including pneumonia (< 1 month) Abnormal pulmonary function Acute myocardial infarction Congestive heart failure (< 1 month) History of inflammatory bowel disease Medical patient at bed rest Age 61-74 Arthroscopic surgery Major open surgery (> 45 min) Laparoscopic surgery (> 45 min) Malignancy Confined to bed (> 72 hours) Immobilizing plaster cast Central venous access Age >= 75 History of VTE Family history of VTE Factor V Leiden Prothrombin [id number] Lupus anticoagulant Anticardiolipin antibodies Elevated serum homocysteine Heparin-induced thrombocytopenia Other congenital or acquired thrombophilia Stroke (< 1 month) Elective arthroplasty Hip, pelvis, or leg fracture Acute spinal cord injury (< 1 month) Prophylaxis Regimen Total Risk Factor Score Risk Level Prophylaxis Regimen 0-1 Low Early ambulation 2 Moderate Order ONE of the following: *Sequential Compression Device (SCD) *Heparin 5000 units SQ BID 3-4 Higher Order ONE of the following medications: *Heparin 5000 units SQ TID *Enoxaparin/Lovenox 40 mg SQ daily (WT < 150 kg, CrCl > 30 mL/min) *Enoxaparin/Lovenox 30 mg SQ daily (WT < 150 kg, CrCl > 10-29 mL/min) *Enoxaparin/Lovenox 30 mg SQ BID (WT < 150 kg, CrCl > 30 mL/min) AND/OR *Sequential Compression Device (SCD) 5 or more Highest Order ONE of the following medications: *Heparin 5000 units SQ TID (Preferred with Epidurals) *Enoxaparin/Lovenox 40 mg SQ daily (WT < 150 kg, CrCl > 30 mL/min) *Enoxaparin/Lovenox 30 mg SQ daily (WT < 150 kg, CrCl > 10-29 mL/min) *Enoxaparin/Lovenox 30 mg SQ BID (WT < 150 kg, CrCl > 30 mL/min) AND *Sequential Compression Device (SCD) Assessment and Plan Problem List: (1) Ankle fracture, bimalleolar, closed ICD Code: S82.843A - Displaced bimalleolar fracture of unspecified lower leg, initial encounter for closed fracture Status: Acute (2) Acute kidney injury ICD Code: N17.9 - Acute kidney injury Status: Acute (3) Hypertension ICD Code: I10 - Essential (primary) hypertension Status: Chronic (4) Anemia ICD Code: D64.9 - Anemia, unspecified Status: Chronic Assessment and Plan 62 y/o female with a history of anxiety, depression, HLD, HTN, GERD, and tyroid nodules presented to the ED with complaints of left ankle pain. Ankle fracture, left bimalleolar Ankle x ray reviewed and shows a bimalleolar ankle fracture -IV Dilaudid for pain management -Consult orthopedic -NPO for possible surgery -Elevate and ICE prn Acute kidney injury, creatine 2.1, baseline 1.1, suspect dehydration -IVF for hydration -BMP in AM -hold lisinopril for now Anemia, chronic, unknown etiology, hgb 10.5, baseline 9 -iron panel and ferritin lab ordered -CBC in AM Confusion of events, questionable UTI, unknown baseline, no leukocytosis or fevers -UA ordered -Will order antibiotics if needed HTN, chronic -Hold home medication due to kidney function -Will order prns if needed Depression, chronic: Will reorder home medications DVT prophylaxis: SCD on left only, hold chemical due to surgery Discussed Condition With patient Physician Certification 2 Midnight Certification Type: Admission for Inpatient Services Order for Inpatient Services The services are ordered in accordance with Medicare regulations or non- Medicare payer requirements, as applicable. In the case of services not specified as inpatient-only, they are appropriately provided as inpatient services in accordance with the 2-midnight benchmark. Estimated LOS (days): 2 days is the estimated time the patient will need to remain in the hospital, assuming treatment plan goals are met and no additional complications. Post-Hospital Plan: Home Problem Qualifiers (1) Ankle fracture, bimalleolar, closed: Qualified Codes: S82.842A - Displaced bimalleolar fracture of left lower leg, initial encounter for closed fracture (2) Anemia: Qualified Codes: D64.9 - Anemia, unspecified Lindsay Fountain Mar 08, 2017 01:58
[2017-03-08] MEDS ORDERED: SODIUM CHLOR 0.9% 1000 ML INJ 1,000 ML IV SCH (02:00)
[2017-03-08 03:45] VITALS: BP 140/75; PULSE 110; RESP 18; TEMP 98.8; O2SAT 97
[2017-03-08 04:16] LABS: BACTERIA, URINE RARE /hpf; BLOOD, URINE TRACE (NEG); COMMENT (UR) CULT NOT INDICATED; CULTURE IF INDICATED CULT NOT INDICATED; GLUCOSE,URINE NEG (NEG); KETONE, URINE 40 mg/dL (NEG); MUCUS URINE FEW /lpf (OCC); NITRITE,URINE NEG (NEG); SQUAMOUS EPITHELIAL CELL URINE <1 /hpf (0-5); URINE COLOR LIGHT-YELLOW (YELLW/STRAW)
[2017-03-08] MEDS ORDERED: HALOPERIDOL LACTATE 5 MG/ML AMP IV PUSH ONE (05:45)
[2017-03-08 08:00] VITALS: BP 126/71; PULSE 90; RESP 18; TEMP 98.9; O2SAT 94
[2017-03-08 08:26] LABS: AUTOMATED NEUTROPHIL # 4.7 TH/MM3 (1.8-7.7); BASOPHIL % 0.4 % (0.0-2.0); EOSINOPHIL # 0.1 TH/MM3 (0-0.4); EOSINOPHIL % 1.9 % (0.0-4.0); HEMATOCRIT 26.8 % (35.0-46.0); HEMO FLAGS DIFF FINAL; LYMPH % 16.3 % (9.0-44.0); MEAN CELL VOLUME 92.3 FL (80.0-100.0); MEAN CORPUSCULAR HEMOGLOBIN 29.9 PG (27.0-34.0); MEAN CORPUSCULAR HGB CONC 32.4 % (32.0-36.0); MONO % 7.6 % (0.0-8.0); NEUT % 73.8 % (16.0-70.0); PLATELET COUNT 219 TH/MM3 (150-450); RED CELL DISTRIBUTION WIDTH 15.2 % (11.6-17.2); WHITE BLOOD COUNT 6.4 TH/MM3 (4.0-11.0)
[2017-03-08 08:51] LABS: BICARBONATE 15.8 MEQ/L (21.0-32.0); POTASSIUM 3.9 MEQ/L (3.5-5.1)
[2017-03-08] MEDS ORDERED: SERTRALINE HCL 100 MG TAB PO SCH (09:00)
[2017-03-08] MEDS: FOLIC ACID 1 MG TAB PO SCH (09:25)
[2017-03-08] MEDS: PANTOPRAZOLE SOD 40 MG DELAYED RELEASE TAB PO SCH (09:25)
[2017-03-08] MEDS: SERTRALINE HCL 100 MG TAB PO SCH (09:25)
[2017-03-08] MEDS: buPROPion HCL 150 MG EXTENDED RELEASE TAB PO SCH (09:25)
[2017-03-08] MEDS: THIAMINE HCL 100 MG TAB PO SCH (09:25)
[2017-03-08] MEDS ORDERED: MIDAZOLAM HCL 2 MG/2 ML VIAL ONE (10:55)
[2017-03-08] MEDS ORDERED: GENTAMICIN SULFATE 80 MG/2 ML VIAL ONE (12:13)
[2017-03-08] MEDS ORDERED: HYDROmorphone HCL PF 2 MG/ML VIAL ONE (12:21)
[2017-03-08] MEDS ORDERED: SUGAMMADEX SODIUM 200 MG/2 ML VIAL IV PUSH ONE ×2 (12:21)
[2017-03-08] MEDS ORDERED: ceFAZolin 2 GM PREMIX 50 ML IV ONE ×3 (12:30→12:40)
--- NOTE | 2017-03-08 12:59 | PD.OP ---
cc: Sorin Huggins MD Operative Report Date of Surgery: Mar 08, 2017 Preoperative Diagnosis: Bi-malleolar fracture, left ankle Postoperative Diagnosis: Same Procedure: Open treatment internal fixation left ankle, bimalleolar fracture Anesthesia: Gen. Surgeon: Sorin Huggins Community Development Coordinator(s): STEFFEN Draper Operation and Findings: EBL: 50 cc INDICATION: Patient is a 62-year-old female who fell yesterday sustaining an injury to her left ankle. She is brought to the emergency room and admitted to the medical service. I have been asked to see her for her left ankle fracture. The studies show evidence of a bimalleolar fracture subluxation of ankle with a broken medial and lateral malleolus. She now presents for surgical treatment. NOTE: Blanka Draper PA-C was present for the entire surgical procedure as my legislative assistant. In my medical opinion her skill and care was necessary for the proper management of this patient. PROCEDURE: The patient brought to the operating room and anesthetized in the supine position. The left leg was visualized under fluoroscopy. Antibiotics were given within an one hour time window and a timeout was done. The lateral side was approached. After exsanguination the tourniquet was inflated to 250 mmHg. A longitudinal incision was made. The fracture was exposed. Multiple clamps used to hold this in proper position. A proper length ITS locking plate was positioned and held. Multiple screws were placed. Overall alignment was satisfactory case was noted. The wound was closed in layers with 2-0 Vicryl 3-0 Vicryl and 3-0 nylon mattress sutures. A medial incision was made. A clamp was used to hold the medial malleolus and anatomic alignment. A cannulated screw system was utilized. 2 pins were placed in good fashion and position. There measured carefully. They were drilled and the proper length screws were advanced across the wire across the fracture. The fracture was reduced anatomically. The wound was closed with 3- 0 nylon in a mattress fashion The wound was irrigated copiously and hemostasis was controlled. Intraoperative imaging showed anatomic reduction. Alignment was satisfactory. A posterior splint was fitted and applied. The patient was awakened and taken to recovery room satisfactory condition. The sponge count and needle count and sponge counts were all correct FINDINGS: There was evidence of an unstable lateral malleolus fracture which was fairly distal. The distal screw holes were locking screws and the proximal were routine 3.5 cortical screws. There was not sufficient room to place a lag screw across this construct. Sorin Huggins MD Mar 08, 2017 12:58
[2017-03-08] MEDS ORDERED: NALOXONE HCL 0.4 MG/ML AMP IV PRN (13:00)
[2017-03-08] MEDS ORDERED: Post-op Orders (for Pharmacy) MISC XX ONE (13:00)
[2017-03-08] MEDS ORDERED: ACETAMINOPHEN/HYDROcodone 325 MG/5 MG TAB PO PRN ×2 (13:00)
[2017-03-08] MEDS ORDERED: MORPHINE SULFATE 8 MG/ML INJ IV PUSH PRN (13:00)
[2017-03-08] MEDS ORDERED: ONDANSETRON HCL 4 MG/2 ML VIAL IVP PRN (13:00)
[2017-03-08] MEDS ORDERED: SODIUM CHLORIDE 0.9% FLUSH 5 ML FLUSH IVF PRN (13:00)
[2017-03-08] MEDS ORDERED: MAGNESIUM HYDROXIDE SUSP 30 ML CUP PO PRN (13:00)
[2017-03-08] MEDS: CALCIUM/VITAMIN D 250 MG/125 U TAB PO SCH ×2 (13:00→18:21)
--- NOTE | 2017-03-08 13:04 | PD.CONS ---
HPI Service Orthopedic Surgeons Consult Requested By Dr. Damon Reason for Consult Fracture subluxation, left ankle. Contusion right foot Primary Care Physician Reginald Borges MD Admission Diagnosis Unstable Left Ankle fracture/Elevated Creatinine Diagnoses: (1) Ankle fracture, bimalleolar, closed (2) Acute kidney injury (3) Hypertension (4) Anemia Chief Complaint: Left ankle pain and inability to ambulate History of Present Illness This patient is a 62-year-old female who slipped yesterday and fell. She was unable to ambulate because the pain in her left ankle. She also had some complaints of pain in her right foot region. I have been asked to see her in consultation regarding the same Review of Systems Constitutional: DENIES: Diaphoretic episodes, Fatigue, Fever, Weight gain, Weight loss, Chills, Dizziness, Change in appetite, Night Sweats Eyes: DENIES: Blurred vision, Diplopia, Eye inflammation, Eye pain, Vision loss , Photosensitivity, Double Vision Ears, nose, mouth, throat: DENIES: Tinnitus, Hearing loss, Vertigo, Nasal discharge, Oral lesions, Throat pain, Hoarseness, Ear Pain, Running Nose, Epistaxis, Sinus Pain, Toothache, Odynophagia Respiratory: DENIES: Apneas, Cough, Snoring, Wheezing, Hemoptysis, Sputum production, Shortness of breath Cardiovascular: DENIES: Chest pain, Palpitations, Syncope, Dyspnea on Exertion , PND, Lower Extremity Edema, Orthopnea, Claudication Gastrointestinal: DENIES: Abdominal pain, Black stools, Bloody stools, Constipation, Diarrhea, Nausea, Vomiting, Difficulty Swallowing, Anorexia Musculoskeletal: COMPLAINS OF: Joint pain, Stiffness Integumentary: DENIES: Abnormal pigmentation, Pruritus, Rash, Nail changes, Breast masses, Breast skin changes, Nipple discharge Hematologic/lymphatic: DENIES: Bruising, Lymphadenopathy Immunologic/allergic: DENIES: Eczema, Urticaria Neurologic: DENIES: Abnormal gait, Headache, Localized weakness, Paresthesias, Seizures, Speech Problems, Tremor, Poor Balance Psychiatric: DENIES: Anxiety, Confusion, Mood changes, Depression, Hallucinations, Agitation, Suicidal Ideation, Homicidal Ideation, Delusions Past Family Social History Past Medical History HTN HLD Thyroid nodules being followed by Dr. Murdock Anxiety Depression Past Surgical History Patient denies any surgical history Allergies: Coded Allergies: No Known Allergies (Unverified , 01/18/17) Active Ordered Medications Current Medications Medications (Trade) Dose Ordered Sig/Bertin Route Start Time Stop Time Status Last Admin (NS Flush) 2 ml UNSCH PRN IVF 03/07/17 16:45 (Tylenol) 650 mg Q4H PRN PO 03/07/17 21:00 (Zofran Inj) 4 mg Q6H PRN IVP 03/07/17 21:00 (Narcan Inj) 0.4 mg UNSCH PRN IV PUSH 03/07/17 21:00 (Milk Of Magnesia Liq) 30 ml Q12H PRN PO 03/07/17 21:00 (Lactulose Liq) 30 ml DAILY PRN PO 03/07/17 21:00 Lactated Ringer's 1,000 ml @ 30 mls/hr Q24H PRN IV 03/07/17 23:00 03/10/17 22:59 Sodium Chloride 500 ml @ 30 mls/hr [id number] PRN IV 03/07/17 23:00 03/10/17 22:59 (Betadine 5% Antisepsis Kit) 1 applic SQL SERVER CONSULTANT PRN EACH NARE 03/07/17 23:00 03/10/17 22:59 (Chlorhexidine 2% Cloth) 3 pack SQL SERVER CONSULTANT PRN TOPICAL 03/07/17 23:00 03/10/17 22:59 (NovoLIN R INJ) See Protocol Table ... SQL SERVER CONSULTANT PRN SQ 03/07/17 23:00 03/10/17 22:59 (Dilaudid Pf Inj) 0.2 mg Q4H PRN IV PUSH 03/08/17 00:45 03/08/17 04:50 (Wellbutrin Xl 24 Hr) 300 mg DAILY PO 03/08/17 09:00 03/08/17 09:25 (Protonix) 40 mg DAILY PO 03/08/17 09:00 03/08/17 09:25 (Zoloft) 150 mg DAILY PO 03/08/17 09:00 03/08/17 09:25 Sodium Chloride 1,000 ml @ 100 mls/hr Q10H IV 03/08/17 02:00 (Folate) 1 mg DAILY PO 03/08/17 09:00 03/13/17 08:59 03/08/17 09:25 (Vitamin B1) 100 mg DAILY PO 03/08/17 09:00 03/08/17 09:25 Cefazolin Sodium/ Dextrose 50 ml @ 100 mls/hr ONCE ONCE IV 03/08/17 12:40 03/08/17 13:09 Lactated Ringer's 1,000 ml @ 100 mls/hr Q10H IV 03/08/17 12:47 UNV (NS Flush) 2 ml UNSCH PRN IVF 03/08/17 13:00 UNV (NS Flush) 2 ml BID IVF 03/08/17 21:00 UNV (Post-op Orders (for Pharmacy)) STAT ONCE XX 03/08/17 13:00 03/08/17 13:01 UNV (Tona-Colace) 1 tab BID PO 03/08/17 21:00 UNV (Milk Of Shauna Castro) 10 ml Q12H PRN PO 03/08/17 13:00 UNV Cefazolin Sodium 1000 mg/Sodium Chloride 100 ml @ 200 mls/hr Q8H IV 03/08/17 13:00 03/09/17 05:29 UNV (Harrell 5-325 Mg) 1 tab Q4H PRN PO 03/08/17 13:00 UNV (Harrell 5-325 Mg) 2 tab Q6H PRN PO 03/08/17 13:00 UNV (Morphine Inj) 5 mg Q4H PRN IV PUSH 03/08/17 13:00 UNV (Zofran Inj) 4 mg Q4H PRN IVP 03/08/17 13:00 UNV (Oscal-D 250-125) 250 mg TID PO 03/08/17 13:00 UNV (Theragran M Tab) 1 tab DAILY PO 03/09/17 09:00 UNV (Benadryl) 25 mg Q6H PRN PO 03/08/17 13:00 UNV (Narcan Inj) 0.4 mg UNSCH PRN IV 03/08/17 13:00 UNV Reported Meds & Active Scripts Active Cipro (Ciprofloxacin HCl) 250 Mg Tab 250 Mg PO Q12H Lisinopril 10 Mg Tab 10 Mg PO DAILY Pantoprazole (Pantoprazole Sodium) 40 Mg Tab 40 Mg PO DAILY Zoloft (Sertraline HCl) 100 Mg Tab 100 Mg PO DAILY Reported Percocet (Oxycodone-Acetaminophen) 10-325 mg Tab 1 Tab PO Q6H PRN Lisinopril 10 Mg Tab 10 Mg PO DAILY Percocet (Oxycodone-Acetaminophen) 10-325 mg Tab 1 Tab PO Q6H PRN Xanax Xr 24 HR (Alprazolam) 0.5 Mg Tab 0.5 Mg PO HS Take tablet intact, preferably in the morning. 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 Sensation distally is normal. No tenderness about the left knee or left hip which both have relatively normal range of motion. The right foot shows swelling with ecchymosis. Some tenderness over the midfoot is seen. No obvious instability. Sensation is normal. No tightness about the right knee or ankle. HEENT: Normocephalic atraumatic pupils equal round reactive. NECK: Supple. No abnormal masses. Full range of motion. CHEST: Clear to auscultation with no rales or rhonchi's or wheezes. HEART: Regular rate and rhythm. No murmurs. ABDOMEN: Soft, nontender, no masses. Normal active bowel sounds. GENITOURINARY: Deferred Laboratory Laboratory Tests Test 03/07/17 17:55 03/08/17 03:50 03/08/17 08:00 White Blood Count 8.3 6.4 Red Blood Count 3.51 2.90 Hemoglobin 10.5 8.7 Hematocrit 32.9 26.8 Mean Corpuscular Volume 93.7 92.3 Mean Corpuscular Hemoglobin 29.9 29.9 Mean Corpuscular Hemoglobin Concent 31.9 32.4 Red Cell Distribution Width 15.4 15.2 Platelet Count 220 219 Mean Platelet Volume 10.0 9.5 Neutrophils (%) (Auto) 76.3 73.8 Lymphocytes (%) (Auto) 14.9 16.3 Monocytes (%) (Auto) 7.6 7.6 Eosinophils (%) (Auto) 0.9 1.9 Basophils (%) (Auto) 0.3 0.4 Neutrophils # (Auto) 6.3 4.7 Lymphocytes # (Auto) 1.2 1.0 Monocytes # (Auto) 0.6 0.5 Eosinophils # (Auto) 0.1 0.1 Basophils # (Auto) 0.0 0.0 CBC Comment DIFF FINAL DIFF FINAL Differential Comment Blood Urea Nitrogen 59 37 Creatinine 2.16 1.23 Random Glucose 85 103 Total Protein 7.8 Albumin 3.6 Calcium Level 9.6 9.6 Magnesium Level 3.6 Alkaline Phosphatase 79 Aspartate Amino Transf (AST/SGOT) 92 Alanine Aminotransferase (ALT/SGPT) 69 Total Bilirubin 0.4 Sodium Level 140 145 Potassium Level 4.6 3.9 Chloride Level 112 116 Carbon Dioxide Level 13.8 15.8 Anion Gap 14 13 Estimat Glomerular Filtration Rate 23 45 Urine Color LIGHT-YELLOW Urine Turbidity CLEAR Urine pH 6.0 Urine Specific Vinson 1.010 Urine Protein TRACE Urine Glucose (UA) NEG Urine Ketones 40 Urine Occult Blood TRACE Urine Nitrite NEG Urine Bilirubin NEG Urine Urobilinogen LESS THAN 2.0 Urine Leukocyte Esterase NEG Urine RBC 1 Urine WBC 1 Urine Squamous Epithelial Cells <1 Urine Bacteria RARE Urine Mucus FEW Microscopic Urinalysis Comment CULT NOT INDICATED Result Diagram: 03/08/17 0800 03/08/17 0800 Imaging I have reviewed x-rays of the left ankle and foot which shows a distal unstable [place] B fracture of the lateral malleolus and an avulsion fracture of the medial malleolus with significant displacement and mild comminution. The ankle itself is unstable. I have reviewed the radiologist's interpretation and I agree. I have reviewed x-rays of the right and left. The left foot is normal showing no fractures. The right foot to me is suspicious in the region of the midfoot on the lateral view there may be a small avulsion fracture. Lisfranc's joint looks fairly normal on x-ray but may have some minimal subluxation of the first metatarsal medial cuneiform joint. This may represent a minimal sprain of Lisfranc's joint Assessment & Plan Assessment and Plan Bimalleolar fracture subluxation left ankle. Avulsion fracture right midfoot, possible sprain, Lisfranc's joint PLAN: Surgical treatment of the left foot: Open treatment internal fixation with lateral plates and screws and medial screws. Non-surgical treatment of the right foot. Racks or walker right foot weightbearing as tolerated. After surgery, nonweightbearing left leg. Consent: There are risks with surgery including infection, bleeding, loss of motion, need for further surgery, loss of fixation. She understands these issues and wishes to proceed forward with surgery as outlined above. I doubt that anticoagulation will be necessary for the treatment of this condition after surgery Sorin Huggins MD Mar 08, 2017 13:04
[2017-03-08] MEDS ORDERED: oxyCODONE/ACETAMINOPHEN 10 MG/325 MG TAB PO PRN ×2 (13:15)
--- NOTE | 2017-03-08 13:32 | PD.PSY.CON ---
Provisional Diagnosis Admission Date Mar 07, 2017 at 19:47 History of Present Illness Service Psychiatry Consult Requested By Reason for Consult Acute psychosis Primary Care Physician Reginald Borges MD Past Family Social History Coded Allergies: No Known Allergies (Unverified , 01/18/17) Active Scripts Ciprofloxacin (Cipro) 250 Mg Tab, 250 MG PO Q12H for health, #3 TAB Prov:Sang Piper MD 01/24/17 Lisinopril (Lisinopril) 10 Mg Tab, 10 MG PO DAILY for health, #30 TAB 0 Refills Prov:Sang Piper MD 01/24/17 Pantoprazole (Pantoprazole) 40 Mg Tab, 40 MG PO DAILY for health, #30 TAB 0 Refills Prov:Sang Piper MD 01/24/17 Sertraline (Zoloft) 100 Mg Tab, 100 MG PO DAILY for health, #30 TAB 0 Refills Prov:Sang Piper MD 01/24/17 Reported Medications Oxycodone-Acetaminophen (Percocet) 10-325 mg Tab, 1 TAB PO Q6H Y for PAIN, TAB 0 Refills 03/07/17 Lisinopril (Lisinopril) 10 Mg Tab, 10 MG PO DAILY, #30 TAB 0 Refills 01/18/17 Oxycodone-Acetaminophen (Percocet) 10-325 mg Tab, 1 TAB PO Q6H Y for PAIN, TAB 0 Refills 01/18/17 Alprazolam ER 24 HR (Xanax Xr 24 HR) 0.5 Mg Tab, 0.5 MG PO HS for Panic Disorder , #30 TAB 0 Refills Take tablet intact, preferably in the morning. 01/18/17 Clonazepam (Clonazepam) 1 Mg Tab, 1 MG PO DIRECTED, #60 TAB 0 Refills 01/18/17 Bupropion HCl ER 24 HR (Wellbutrin Xl 24 HR) 300 Mg Tab, 300 MG PO DAILY for Control Depression, TAB 0 Refills 01/18/17 Sertraline (Sertraline) 100 Mg Tab, 150 MG PO DAILY, #30 TAB 0 Refills 01/18/17 Hydrochlorothiazide (Hydrochlorothiazide) 12.5 Mg Cap, 12.5 MG PO DAILY, #30 CAP 0 Refills 01/18/17 Current Medications Medications (Trade) Dose Ordered Sig/Bertin Route Start Time Stop Time Status Last Admin (NS Flush) 2 ml UNSCH PRN IVF 03/07/17 16:45 (Tylenol) 650 mg Q4H PRN PO 03/07/17 21:00 (Zofran Inj) 4 mg Q6H PRN IVP 03/07/17 21:00 (Narcan Inj) 0.4 mg UNSCH PRN IV PUSH 03/07/17 21:00 (Milk Of Magnesia Liq) 30 ml Q12H PRN PO 03/07/17 21:00 (Lactulose Liq) 30 ml DAILY PRN PO 03/07/17 21:00 Lactated Ringer's 1,000 ml @ 30 mls/hr Q24H PRN IV 03/07/17 23:00 03/10/17 22:59 Sodium Chloride 500 ml @ 30 mls/hr [id number] PRN IV 03/07/17 23:00 03/10/17 22:59 (Betadine 5% Antisepsis Kit) 1 applic CONTAINER PACKER OPERATOR PRN EACH NARE 03/07/17 23:00 03/10/17 22:59 (Chlorhexidine 2% Cloth) 3 pack CONTAINER PACKER OPERATOR PRN TOPICAL 03/07/17 23:00 03/10/17 22:59 (NovoLIN R INJ) See Protocol Table ... CONTAINER PACKER OPERATOR PRN SQ 03/07/17 23:00 03/10/17 22:59 (Dilaudid Pf Inj) 0.2 mg Q4H PRN IV PUSH 03/08/17 00:45 03/08/17 04:50 (Wellbutrin Xl 24 Hr) 300 mg DAILY PO 03/08/17 09:00 03/08/17 09:25 (Protonix) 40 mg DAILY PO 03/08/17 09:00 03/08/17 09:25 (Zoloft) 150 mg DAILY PO 03/08/17 09:00 03/08/17 09:25 Sodium Chloride 1,000 ml @ 100 mls/hr Q10H IV 03/08/17 02:00 (Folate) 1 mg DAILY PO 03/08/17 09:00 03/13/17 08:59 03/08/17 09:25 (Vitamin B1) 100 mg DAILY PO 03/08/17 09:00 03/08/17 09:25 Lactated Ringer's 1,000 ml @ 100 mls/hr Q10H IV 03/08/17 12:47 (NS Flush) 2 ml UNSCH PRN IVF 03/08/17 13:00 (NS Flush) 2 ml BID IVF 03/08/17 21:00 (Post-op Orders (for Pharmacy)) STAT ONCE XX 03/08/17 13:00 03/08/17 13:01 UNV (Tona-Colace) 1 tab BID PO 03/08/17 21:00 (Milk Of Shauna Limyles) 10 ml Q12H PRN PO 03/08/17 13:00 Cefazolin Sodium 1000 mg/Sodium Chloride 100 ml @ 200 mls/hr Q8H IV 03/08/17 13:00 03/09/17 05:29 UNV (Morphine Inj) 5 mg Q4H PRN IV PUSH 03/08/17 13:00 (Zofran Inj) 4 mg Q4H PRN IVP 03/08/17 13:00 (Oscal-D 250-125) 250 mg TID PO 03/08/17 13:00 (Theragran M Tab) 1 tab DAILY PO 03/09/17 09:00 (Benadryl) 25 mg Q6H PRN PO 03/08/17 13:00 (Narcan Inj) 0.4 mg UNSCH PRN IV 03/08/17 13:00 (Percocet 10-325 Mg) 1 tab Q4H PRN PO 03/08/17 13:15 (Percocet 10-325 Mg) 2 tab Q4H PRN PO 03/08/17 13:15 Physical Exam Vital Signs Vital Signs Date Time Temp Pulse Resp B/P (MAP) Pulse Ox O2 Delivery O2 Flow Rate FiO2 03/08/17 08:00 98.9 90 18 126/71 (89) 94 I/O 03/08/17 03/08/17 03/09/17 08:00 16:00 00:00 Intake Total 0 ml 1200 ml Output Total 1000 ml Balance 0 ml 200 ml Lab Results Test 03/07/17 17:55 03/08/17 03:50 03/08/17 08:00 White Blood Count 8.3 TH/MM3 6.4 TH/MM3 Red Blood Count 3.51 MIL/MM3 2.90 MIL/MM3 Hemoglobin 10.5 GM/DL 8.7 GM/DL Hematocrit 32.9 % 26.8 % Mean Corpuscular Volume 93.7 FL 92.3 FL Mean Corpuscular Hemoglobin 29.9 PG 29.9 PG Mean Corpuscular Hemoglobin Concent 31.9 % 32.4 % Red Cell Distribution Width 15.4 % 15.2 % Platelet Count 220 TH/MM3 219 TH/MM3 Mean Platelet Volume 10.0 FL 9.5 FL Neutrophils (%) (Auto) 76.3 % 73.8 % Lymphocytes (%) (Auto) 14.9 % 16.3 % Monocytes (%) (Auto) 7.6 % 7.6 % Eosinophils (%) (Auto) 0.9 % 1.9 % Basophils (%) (Auto) 0.3 % 0.4 % Neutrophils # (Auto) 6.3 TH/MM3 4.7 TH/MM3 Lymphocytes # (Auto) 1.2 TH/MM3 1.0 TH/MM3 Monocytes # (Auto) 0.6 TH/MM3 0.5 TH/MM3 Eosinophils # (Auto) 0.1 TH/MM3 0.1 TH/MM3 Basophils # (Auto) 0.0 TH/MM3 0.0 TH/MM3 CBC Comment DIFF FINAL DIFF FINAL Differential Comment Blood Urea Nitrogen 59 MG/DL 37 MG/DL Creatinine 2.16 MG/DL 1.23 MG/DL Random Glucose 85 MG/DL 103 MG/DL Total Protein 7.8 GM/DL Albumin 3.6 GM/DL Calcium Level 9.6 MG/DL 9.6 MG/DL Magnesium Level 3.6 MG/DL Alkaline Phosphatase 79 U/L Aspartate Amino Transf (AST/SGOT) 92 U/L Alanine Aminotransferase (ALT/SGPT) 69 U/L Total Bilirubin 0.4 MG/DL Sodium Level 140 MEQ/L 145 MEQ/L Potassium Level 4.6 MEQ/L 3.9 MEQ/L Chloride Level 112 MEQ/L 116 MEQ/L Carbon Dioxide Level 13.8 MEQ/L 15.8 MEQ/L Anion Gap 14 MEQ/L 13 MEQ/L Estimat Glomerular Filtration Rate 23 ML/MIN 45 ML/MIN Urine Color LIGHT-YELLOW Urine Turbidity CLEAR Urine pH 6.0 Urine Specific [place] 1.010 Urine Protein TRACE mg/dL Urine Glucose (UA) NEG mg/dL Urine Ketones 40 mg/dL Urine Occult Blood TRACE Urine Nitrite NEG Urine Bilirubin NEG Urine Urobilinogen LESS THAN 2.0 MG/DL Urine Leukocyte Esterase NEG Urine RBC 1 /hpf Urine WBC 1 /hpf Urine Squamous Epithelial Cells <1 /hpf Urine Bacteria RARE /hpf Urine Mucus FEW /lpf Microscopic Urinalysis Comment CULT NOT INDICATED Mental Status Examination Previous Suicide Attempts: No Previous Homicide Attempts: No Assessment & Plan Problem List: (1) Delirium due to medical condition with behavioral disturbance ICD Codes: F05 - Delirium due to known physiological condition Status: Acute Assessment & Plan: Patient was visited for psychiatric evaluation, but she was out in surgery. We'll visit in a later moment to complete psychiatric assessment and evaluation. Assessment & Plan Estimated LOS: Sanket García MD Mar 08, 2017 13:32
[2017-03-08] MEDS: LACTATED RINGER'S 1000 ML INJ 1,000 ML IV SCH (13:45)
[2017-03-08] MEDS ORDERED: DO NOT ADM ANY ANTICOAGULANT DRUGS PRN (14:00)
[2017-03-08] MEDS ORDERED: LORazepam 2 MG/ML VIAL ONE (14:31)
[2017-03-08] MEDS ORDERED: MIDAZOLAM HCL 2 MG/2 ML VIAL IV ONE (15:42)
[2017-03-08] MEDS ORDERED: ONDANSETRON HCL 4 MG/2 ML VIAL IV PUSH ONE (15:42)
[2017-03-08] MEDS ORDERED: ROCURONIUM INJ 100 MG/10 ML VIAL IV ONE (15:42)
[2017-03-08] MEDS ORDERED: LACTATED RINGER'S 1000 ML INJ 1,000 ML IV ONE (15:42)
[2017-03-08] MEDS ORDERED: PROPOFOL 200 MG/20 ML AMP IV ONE (15:42)
[2017-03-08] MEDS ORDERED: PHENYLEPH/NS 1000 MCG/10 ML SYR IV ONE (15:42)
[2017-03-08] MEDS ORDERED: NEOSTIGMINE 3 MG/3 ML SYR IV ONE (15:42)
[2017-03-08] MEDS ORDERED: LIDOCAINE HCL 1% PF 5 ML AMPULE OTHER ONE (15:42)
[2017-03-08] MEDS ORDERED: GLYCOPYRROLATE 0.4 MG/2 ML VIAL IV ONE (15:42)
--- NOTE | 2017-03-08 15:51 | RADRPT ---
EXAM DATE/TIME: 03/08/2017 12:31 [facility] COMPARISON: No previous studies available for comparison. INDICATIONS : ORIF left ankle. MEDICAL HISTORY : None. SURGICAL HISTORY : None. ENCOUNTER: Initial ACUITY: 1 day PAIN SCORE: Non-responsive. LOCATION: Left ankle. FINDINGS/CONCLUSION: Two-view left ankle demonstrates the patient has had open reduction internal fixation of a medial malleolar and lateral fibular fracture. There is no complication. Hardware is in excellent position. Question a nondisplaced posterior malleolar fracture. Oj Erwin MD on March 08, 2017 at 15:38 Board Certified Radiologist. This report was verified electronically.
[2017-03-08] MEDS ORDERED: HALOPERIDOL LACTATE 5 MG/ML AMP IM PRN (19:30)
[2017-03-08] MEDS: DOCUSATE SODIUM 50 MG/SENNA 8.6 MG TAB PO SCH (20:33)
[2017-03-08] MEDS: SODIUM CHLORIDE 0.9% FLUSH 5 ML FLUSH IVF SCH (20:33)
[2017-03-08 20:35] VITALS: BP 154/62; PULSE 117; RESP 19; TEMP 97.1; O2SAT 96
[2017-03-08] MEDS ORDERED: LORazepam 2 MG/ML VIAL IV PUSH PRN (21:00)
[2017-03-09] VITALS (8 sets, daily range): BP systolic 110–152; BP diastolic 63–82; PULSE 96–111; RESP 17–19; TEMP 96.4–98.7; O2SAT 94–99
--- NOTE | 2017-03-09 07:24 | PD.ORT.PN ---
Subjective Subjective Remarks pt is confused, in restraints she has no complaints of ankle pain pre-operatively she was taking percocet 10 mg QID for chronic low back pain Objective Vitals Vital Signs Date Time Temp Pulse Resp B/P (MAP) Pulse Ox O2 Delivery O2 Flow Rate FiO2 03/09/17 04:35 98 03/09/17 03:00 96.6 108 18 141/82 (101) 94 03/09/17 00:30 96.4 111 19 141/82 (101) 96 03/08/17 20:35 97.1 117 19 154/62 (92) 96 03/08/17 14:30 110 16 137/70 (92) 97 Room Air 03/08/17 14:00 110 16 131/69 (89) 97 Room Air 03/08/17 13:45 110 16 128/77 (94) 98 Room Air 03/08/17 13:30 108 16 133/86 (102) 97 Room Air 03/08/17 13:15 108 16 127/77 (94) 98 Room Air 03/08/17 13:13 97.5 108 16 121/80 (94) 99 03/08/17 08:00 98.9 90 18 126/71 (89) 94 I/O 03/08/17 03/08/17 03/08/17 03/09/17 03/09/17 03/09/17 07:00 15:00 23:00 07:00 15:00 23:00 Intake Total 0 ml 1200 ml 240 ml 240 ml Output Total 1000 ml Balance 0 ml 200 ml 240 ml 240 ml Intake Oral 0 ml 0 ml 240 ml 240 ml Other 1200 ml Output Other 1000 ml # Voids 2 3 2 3 # Bowel Movements 0 0 0 0 Result Diagram: 03/08/17 0800 03/08/17 0800 Objective Remarks pt confused, has hx of confusion and chronic pain Left ankle dressing dry and intact +NVI Assessment & Plan Assessment and Plan Bimalleolar fracture subluxation left ankle. Avulsion fracture right midfoot, possible sprain, Lisfranc's joint PLAN: POD #1 s/p ORIF L ankle Non-surgical treatment of the right foot. discontinue all narcotics other than what she was on pre op (Percocet 10 mg QID ) b/c of confusion may need to discharged to SNF Yazan Huggins MD Mar 09, 2017 07:24
[2017-03-09 07:45] LABS: TRANSFERRIN IRON PROFILE 201 MG/DL (200-360)
[2017-03-09 07:48] LABS: FERRITIN 179 NG/ML (8-252)
--- NOTE | 2017-03-09 07:52 | EKG ---
Date Performed: 03/07/2017 Time Performed: 19:07:39 PTAGE: 62 years EKG: SINUS TACHYCARDIA NONSPECIFIC ST & T-WAVE ABNORMALITY ABNORMAL RHYTHM ECG PREVIOUS TRACING : 01/18/2017 10.31 Since previous tracing, ST-T changes are new. MD interval r emains borderline short. DOCTOR: Misha Montanez Interpretating Date/Time 03/09/2017 07:51:05
[2017-03-09] MEDS: SODIUM CHLORIDE 0.9% FLUSH 5 ML FLUSH IVF SCH ×2 (09:00→21:35)
[2017-03-09] MEDS: DOCUSATE SODIUM 50 MG/SENNA 8.6 MG TAB PO SCH ×2 (09:30→21:34)
[2017-03-09] MEDS: MULTIVITAMINS/MINERALS THERAPEUTIC TAB PO SCH (09:30)
[2017-03-09] MEDS: buPROPion HCL 150 MG EXTENDED RELEASE TAB PO SCH (09:30)
[2017-03-09] MEDS: THIAMINE HCL 100 MG TAB PO SCH (09:30)
[2017-03-09] MEDS: FOLIC ACID 1 MG TAB PO SCH (09:31)
[2017-03-09] MEDS: CALCIUM/VITAMIN D 250 MG/125 U TAB PO SCH ×3 (09:31→18:21)
[2017-03-09] MEDS: SERTRALINE HCL 100 MG TAB PO SCH (09:31)
[2017-03-09] MEDS: PANTOPRAZOLE SOD 40 MG DELAYED RELEASE TAB PO SCH (09:31)
[2017-03-09] MEDS: LACTATED RINGER'S 1000 ML INJ 1,000 ML IV SCH ×2 (09:37→18:47)
[2017-03-09] MEDS: oxyCODONE/ACETAMINOPHEN 10 MG/325 MG TAB PO PRN ×3 (09:41→21:35)
[2017-03-09] MEDS ORDERED: LORazepam 1 MG TAB PO PRN (13:00)
[2017-03-09] MEDS ORDERED: LORazepam 2 MG/ML VIAL IV PUSH PRN ×4 (13:00)
[2017-03-09] MEDS ORDERED: LORazepam 2 MG TAB PO PRN (13:00)
[2017-03-09] MEDS ORDERED: FLUMAZENIL 0.5 MG/5 ML VIAL IV PUSH PRN (13:00)
--- NOTE | 2017-03-09 13:09 | PD.PSY.CON ---
Provisional Diagnosis Admission Date Mar 07, 2017 at 19:47 [place] I. Delirium due to underlying medical conditions, benzodiazepine withdrawal, history of unspecified psychosis and benzodiazepines dependence [place] II. Deferred History of Present Illness Service Psychiatry Consult Requested By Reason for Consult Agitation and hostility Primary Care Physician Reginald Borges MD HPI The patient is a 62 year old female, domiciled with her , unemployed, retired pharmacist, with psychiatric history of anxiety, depression, psychosis, hypnotic-sedative dependence, a Confucianist hospitalizations, she was hospitalized here a month ago in [place] in [facility] E due to psychosis, documentation reviewed, patient is on Wellbutrin on Zoloft, she has medical history of HLD, HTN, GERD, and tyroid nodules presented to the ED with complaints of left ankle pain. Patient states she fell maybe 4-5 days, she is really unsure, and refused to come to the hospital at that time. Then she fell again and had pain in both ankles so he brought her in. She denies any chest pain, sob, or dizziness prior to the fall. She denies hitting her head. She states she does not know why she fell, she says he legs became weak and she just fell. She states the pain is a constant throbbing pain in her left ankle, 8/10, improves with medication. She states she can not walk. She is acting somewhat strange, and is a little confused about the events prior to falling. Postop after reparation of subluxation of left ankle. On psychiatric evaluation today patient is restrained in 2 points, confused, with fluctuation of consciousness, internally stimulated, she reports frequent visual hallucinations of people coming inside her room. She denies depressive symptoms, she reports good mood today, she is partially oriented she knows that she is in the hospital, she knows that we are in 2017. She denies suicidal or homicidal ideation, she denies visual and auditory hallucinations. He she denies the use of alcohol and illicit drugs. Review of Systems Constitutional: DENIES: Diaphoretic episodes, Fatigue, Fever, Weight gain, Weight loss, Chills, Dizziness, Change in appetite, Night Sweats Endocrine: DENIES: Abnorml menstrual pattern, Heat/cold intolerance, Polydipsia , Polyuria, Polyphagia Eyes: DENIES: Blurred vision, Diplopia, Eye inflammation, Eye pain, Vision loss , Photosensitivity, Double Vision Ears, nose, mouth, throat: DENIES: Tinnitus, Hearing loss, Vertigo, Nasal discharge, Oral lesions, Throat pain, Hoarseness, Ear Pain, Running Nose, Epistaxis, Sinus Pain, Toothache, Odynophagia Respiratory: DENIES: Apneas, Cough, Snoring, Wheezing, Hemoptysis, Sputum production, Shortness of breath Cardiovascular: DENIES: Chest pain, Palpitations, Syncope, Dyspnea on Exertion , PND, Lower Extremity Edema, Orthopnea, Claudication Gastrointestinal: DENIES: Abdominal pain, Black stools, Bloody stools, Constipation, Diarrhea, Nausea, Vomiting, Difficulty Swallowing, Anorexia Integumentary: DENIES: Abnormal pigmentation, Pruritus, Rash, Nail changes, Breast masses, Breast skin changes, Nipple discharge Hematologic/lymphatic: DENIES: Bruising, Lymphadenopathy Neurologic: DENIES: Abnormal gait, Headache, Localized weakness, Paresthesias, Seizures, Speech Problems, Tremor, Poor Balance Psychiatric: COMPLAINS OF: Confusion, Hallucinations Past Family Social History Coded Allergies: No Known Allergies (Unverified , 01/18/17) Active Scripts Ciprofloxacin (Cipro) 250 Mg Tab, 250 MG PO Q12H for health, #3 TAB Prov:Sang Piper MD 01/24/17 Lisinopril (Lisinopril) 10 Mg Tab, 10 MG PO DAILY for health, #30 TAB 0 Refills Prov:Sang Piper MD 01/24/17 Pantoprazole (Pantoprazole) 40 Mg Tab, 40 MG PO DAILY for health, #30 TAB 0 Refills Prov:Sang Piper MD 01/24/17 Sertraline (Zoloft) 100 Mg Tab, 100 MG PO DAILY for health, #30 TAB 0 Refills Prov:Sang Piper MD 01/24/17 Reported Medications Oxycodone-Acetaminophen (Percocet) 10-325 mg Tab, 1 TAB PO Q6H Y for PAIN, TAB 0 Refills 03/07/17 Lisinopril (Lisinopril) 10 Mg Tab, 10 MG PO DAILY, #30 TAB 0 Refills 01/18/17 Oxycodone-Acetaminophen (Percocet) 10-325 mg Tab, 1 TAB PO Q6H Y for PAIN, TAB 0 Refills 01/18/17 Alprazolam ER 24 HR (Xanax Xr 24 HR) 0.5 Mg Tab, 0.5 MG PO HS for Panic Disorder , #30 TAB 0 Refills Take tablet intact, preferably in the morning. 01/18/17 Clonazepam (Clonazepam) 1 Mg Tab, 1 MG PO DIRECTED, #60 TAB 0 Refills 01/18/17 Bupropion HCl ER 24 HR (Wellbutrin Xl 24 HR) 300 Mg Tab, 300 MG PO DAILY for Control Depression, TAB 0 Refills 01/18/17 Sertraline (Sertraline) 100 Mg Tab, 150 MG PO DAILY, #30 TAB 0 Refills 01/18/17 Hydrochlorothiazide (Hydrochlorothiazide) 12.5 Mg Cap, 12.5 MG PO DAILY, #30 CAP 0 Refills 01/18/17 Current Medications Medications (Trade) Dose Ordered Sig/Bertin Route Start Time Stop Time Status Last Admin (Tylenol) 650 mg Q4H PRN PO 03/07/17 21:00 (Lactulose Liq) 30 ml DAILY PRN PO 03/07/17 21:00 Lactated Ringer's 1,000 ml @ 30 mls/hr Q24H PRN IV 03/07/17 23:00 03/10/17 22:59 Sodium Chloride 500 ml @ 30 mls/hr [id number] PRN IV 03/07/17 23:00 03/10/17 22:59 (Betadine 5% Antisepsis Kit) 1 applic COMPUTER ANALYST SUPERVISOR PRN EACH NARE 03/07/17 23:00 03/10/17 22:59 (Chlorhexidine 2% Cloth) 3 pack COMPUTER ANALYST SUPERVISOR PRN TOPICAL 03/07/17 23:00 03/10/17 22:59 (NovoLIN R INJ) See Protocol Table ... COMPUTER ANALYST SUPERVISOR PRN SQ 03/07/17 23:00 03/10/17 22:59 (Wellbutrin Xl 24 Hr) 300 mg DAILY PO 03/08/17 09:00 03/09/17 09:30 (Protonix) 40 mg DAILY PO 03/08/17 09:00 03/09/17 09:31 (Zoloft) 150 mg DAILY PO 03/08/17 09:00 03/09/17 09:31 (Folate) 1 mg DAILY PO 03/08/17 09:00 03/13/17 08:59 03/09/17 09:31 (Vitamin B1) 100 mg DAILY PO 03/08/17 09:00 03/09/17 09:30 Lactated Ringer's 1,000 ml @ 100 mls/hr Q10H IV 03/08/17 12:47 03/09/17 09:37 (NS Flush) 2 ml UNSCH PRN IVF 03/08/17 13:00 (NS Flush) 2 ml BID IVF 03/08/17 21:00 03/08/17 20:33 (Tona-Colace) 1 tab BID PO 03/08/17 21:00 03/09/17 09:30 (Milk Of Magnesia Liq) 10 ml Q12H PRN PO 03/08/17 13:00 (Zofran Inj) 4 mg Q4H PRN IVP 03/08/17 13:00 (Oscal-D 250-125) 250 mg TID PO 03/08/17 13:00 03/09/17 09:31 (Theragran M Tab) 1 tab DAILY PO 03/09/17 09:00 03/09/17 09:30 (Benadryl) 25 mg Q6H PRN PO 03/08/17 13:00 (Narcan Inj) 0.4 mg UNSCH PRN IV 03/08/17 13:00 Miscellaneous Information ALL NURSING DEPARTME... UNSCH PRN .XX 03/08/17 14:00 03/09/17 13:59 (Haldol Inj) 2 mg Q8H PRN IM 03/08/17 19:30 03/08/17 20:33 (Ativan Inj) 1 mg Q2H PRN IV PUSH 03/08/17 21:00 (Percocet 10-325 Mg) 1 tab Q6H PRN PO 03/09/17 07:30 03/09/17 09:41 (SEROquel) 25 mg BID PO 03/09/17 13:00 UNV (Romazicon Inj) 0.2 mg Q1M PRN IV PUSH 03/09/17 13:00 UNV (Ativan) 1 mg Q4H PRN PO 03/09/17 13:00 UNV (Ativan Inj) 1 mg Q4H PRN IV PUSH 03/09/17 13:00 UNV (Ativan) 2 mg Q2H PRN PO 03/09/17 13:00 UNV (Ativan Inj) 2 mg Q2H PRN IV PUSH 03/09/17 13:00 UNV (Ativan Inj) 2 mg Q1H PRN IV PUSH 03/09/17 13:00 UNV (Ativan Inj) 2 mg Q15M PRN IV PUSH 03/09/17 13:00 UNV Family History She denies family psychiatric history Social History Patient was born and raised in [facility], and poor [place] with her , she is unemployed, she is a retired pharmacist, Patient's Strengths (min. 2) High level of education, establish outpatient Physical Exam Vital Signs Vital Signs Date Time Temp Pulse Resp B/P (MAP) Pulse Ox O2 Delivery O2 Flow Rate FiO2 03/09/17 09:33 94 21 03/09/17 08:00 98.1 96 18 152/80 (104) 03/08/17 14:30 Room Air I/O 03/09/17 03/09/17 03/10/17 08:00 16:00 00:00 Intake Total 240 ml Balance 240 ml Lab Results Test 03/09/17 06:34 Iron Level 20 MCG/DL Total Iron Binding Capacity 281 MCG/DL Percent Iron Saturation 7.1 % Ferritin 179 NG/ML Mental Status Examination Appearance woman, age appearing, [facility], she superficially cooperative , confused, calm Speech: Unremarkable Orientation: Person, Place Memory: Impaired (describe) Thought Process: Loose Association Thought Content: Unremarkable Hallucination Type: Visual Suicidal Ideation: No Previous Suicide Attempts: No Homicidal Ideation: No Previous Homicide Attempts: No Insight: Poor Affect: Irritable Mood: Angry Motor Activity: Normal gait Assessment & Plan Problem List: (1) Delirium due to medical condition with behavioral disturbance ICD Codes: F05 - Delirium due to known physiological condition Status: Acute Assessment & Plan: On psychiatric evaluation today patient seems to be confused , internally stimulated, she is restrained in 2 points due to agitation, she reports visual hallucinations of people coming inside her room, hallucinations seems to be anxiety provoking. Fluctuation of consciousness and attention deficit are present. Current presentation seems to be consistent with delirium most probably due to underlying medical conditions. Delirium and is very frequent after orthopedic surgeries, however patient has a well-documented history of hypnotic sedative abuse and withdrawal could be the potential Etiology of current perceptual disturbances. Continue current psychotropic regimen. Will add Seroquel 25 mg twice a day for psychosis. CIWA protocol. Patient might benefit of psychiatric admission if perceptual disturbances persist. Extensive support, motivation and psychoeducation provided. Consult appreciated. Assessment & Plan Estimated LOS: Sanket García MD Mar 09, 2017 13:09
[2017-03-09] MEDS: QUEtiapine FUMARATE 25 MG TAB PO SCH ×2 (15:19→21:34)
--- NOTE | 2017-03-09 19:19 | HHI.PR ---
Subjective Remarks Nursing reports that the patient's behavior is much better, far less agitated. Patient herself is looking forward to eating her dinner, no nausea and vomiting Objective Vital Signs Date Time Temp Pulse Resp B/P (MAP) Pulse Ox O2 Delivery O2 Flow Rate FiO2 03/09/17 16:00 97.3 99 18 115/72 (86) 94 03/09/17 12:00 97.5 110 18 110/63 (79) 99 03/09/17 09:33 94 21 03/09/17 08:00 98.1 96 18 152/80 (104) 99 03/09/17 04:35 98 03/09/17 03:00 96.6 108 18 141/82 (101) 94 03/09/17 00:30 96.4 111 19 141/82 (101) 96 03/08/17 20:35 97.1 117 19 154/62 (92) 96 I/O 03/08/17 03/08/17 03/08/17 03/09/17 03/09/17 03/09/17 07:00 15:00 23:00 07:00 15:00 23:00 Intake Total 0 ml 1200 ml 240 ml 240 ml 700 ml Output Total 1000 ml Balance 0 ml 200 ml 240 ml 240 ml 700 ml Intake Oral 0 ml 0 ml 240 ml 240 ml 600 ml IV Total 100 ml Other 1200 ml Output Other 1000 ml # Voids 2 3 2 3 3 # Bowel Movements 0 0 0 0 0 Result Diagram: 03/08/17 0800 03/08/17 0800 Objective Remarks No acute distress, lying in bed awake Unlabored breathing clear breath sounds bilaterally, left foot in dressing, able to move proximal lower extremities easily A/P Assessment and Plan 62 y/o female with a history of anxiety, depression, HLD, HTN, GERD, and tyroid nodules presented to the ED with complaints of left ankle pain. Ankle fracture, left bimalleolar Ankle x ray reviewed and shows a left bimalleolar ankle fracture -ortho following, POD 1 Acute kidney injury, creatine 2.1, baseline 1.1 - improving -IVF for hydration -will check BMP in AM -resume home lisinopril for now Anemia, chronic, unknown etiology, hgb 10.5, baseline 9 -iron panel shows low iron, ordering Venofer infusion Confusion of events - likely delirium, UA neg, much improved today panic disorder - resuming home ativan prn panic HTN, chronic -resuming home medication Depression, chronic: continue sertraline DVT prophylaxis: will start jovanix Seferino Gao MD Mar 09, 2017 19:19
[2017-03-09] MEDS ORDERED: IRON SUCROSE INJ 100 MG in SODIUM CHLORIDE 0.9% INJ 100 ML IV ONE (21:00)
[2017-03-09] MEDS ORDERED: ALPRAZOLAM 0.5 MG PO SCH (21:00)
[2017-03-09] MEDS: ENOXAPARIN SODIUM 30 MG/0.3 ML SYRINGE SQ SCH (21:34)
[2017-03-09] MEDS: HYDROCHLOROTHIAZIDE 12.5 MG CAP PO SCH (21:39)
[2017-03-09] MEDS: LISINOPRIL 10 MG TAB PO SCH (21:39)
[2017-03-10] VITALS: BP 138/80; PULSE 100; RESP 16; TEMP 99; O2SAT 97
[2017-03-10] MEDS: LACTATED RINGER'S 1000 ML INJ 1,000 ML IV SCH ×2 (04:47→14:47)
--- NOTE | 2017-03-10 07:56 | PD.ORT.PN ---
Subjective Post Op Day #: 2 Subjective Remarks pain tolerable. still some confusion. Objective Vitals Vital Signs Date Time Temp Pulse Resp B/P (MAP) Pulse Ox O2 Delivery O2 Flow Rate FiO2 03/10/17 03:05 Room Air 03/10/17 00:00 99.0 100 16 138/80 (99) 97 03/09/17 22:35 18 03/09/17 21:10 98.7 107 17 128/78 (95) 98 03/09/17 16:00 97.3 99 18 115/72 (86) 94 03/09/17 12:00 97.5 110 18 110/63 (79) 99 03/09/17 09:33 94 21 03/09/17 08:00 98.1 96 18 152/80 (104) 99 I/O 03/09/17 03/09/17 03/09/17 03/10/17 03/10/17 03/10/17 07:00 15:00 23:00 07:00 15:00 23:00 Intake Total 240 ml 700 ml 1295 ml 240 ml Balance 240 ml 700 ml 1295 ml 240 ml Intake Oral 240 ml 600 ml 240 ml 240 ml IV Total 100 ml 1055 ml # Voids 3 3 2 5 # Bowel Movements 0 0 0 0 Result Diagram: 03/08/17 0800 03/08/17 0800 Objective Remarks pt less confused, has hx of confusion and chronic pain Left ankle dressing dry and intact +NVI Fx boot R foot. sensation intact. cap refill. Assessment & Plan Ortho Post Op Day #: 2 Problem List: Assessment and Plan Bimalleolar fracture subluxation left ankle. Avulsion fracture right midfoot, possible sprain, Lisfranc's joint PLAN: POD #2 s/p ORIF L ankle. NWB. maintain splint. Non-surgical treatment of the right foot. Fx Boot. WBAT discontinue all narcotics other than what she was on pre op (Percocet 10 mg QID ) b/c of confusion d/c planning home vs SNF f/up ortho 2 weeks Chris Lopez Mar 10, 2017 07:56
[2017-03-10 08:00] VITALS: BP 167/93; PULSE 89; RESP 18; TEMP 96.6; O2SAT 95
[2017-03-10] MEDS: QUEtiapine FUMARATE 25 MG TAB PO SCH ×2 (09:00→23:25)
[2017-03-10] MEDS: SODIUM CHLORIDE 0.9% FLUSH 5 ML FLUSH IVF SCH ×2 (09:00→23:25)
[2017-03-10] MEDS: LISINOPRIL 10 MG TAB PO SCH (09:00)
[2017-03-10 09:36] LABS: BICARBONATE 26.6 MEQ/L (21.0-32.0); POTASSIUM 3.1 MEQ/L (3.5-5.1)
[2017-03-10] MEDS: oxyCODONE/ACETAMINOPHEN 10 MG/325 MG TAB PO PRN ×3 (09:40→23:24)
[2017-03-10] MEDS: THIAMINE HCL 100 MG TAB PO SCH (09:41)
[2017-03-10] MEDS: HYDROCHLOROTHIAZIDE 12.5 MG CAP PO SCH (09:41)
[2017-03-10] MEDS: SERTRALINE HCL 100 MG TAB PO SCH (09:41)
[2017-03-10] MEDS: PANTOPRAZOLE SOD 40 MG DELAYED RELEASE TAB PO SCH (09:42)
[2017-03-10] MEDS: MULTIVITAMINS/MINERALS THERAPEUTIC TAB PO SCH (09:42)
[2017-03-10] MEDS: FOLIC ACID 1 MG TAB PO SCH (09:42)
[2017-03-10] MEDS: CALCIUM/VITAMIN D 250 MG/125 U TAB PO SCH ×3 (09:42→18:00)
[2017-03-10] MEDS: DOCUSATE SODIUM 50 MG/SENNA 8.6 MG TAB PO SCH ×2 (09:42→23:25)
[2017-03-10] MEDS: buPROPion HCL 150 MG EXTENDED RELEASE TAB PO SCH (09:42)
[2017-03-10 12:00] VITALS: BP 155/79; PULSE 76; RESP 18; TEMP 97.3; O2SAT 100
[2017-03-10 16:00] VITALS: BP 153/93; PULSE 95; RESP 18; TEMP 98.3; O2SAT 97
--- NOTE | 2017-03-10 16:02 | HHI.PR ---
Subjective Remarks Nursing reports the patient is overall pretty good. Patient self says she feels much better, no nausea vomiting fevers or chills. Reports that she has intact sensation in her feet. Is open to physical rehabilitation facility Objective Vital Signs Date Time Temp Pulse Resp B/P (MAP) Pulse Ox O2 Delivery O2 Flow Rate FiO2 03/10/17 12:00 97.3 76 18 155/79 (104) 100 03/10/17 08:00 96.6 89 18 167/93 (117) 95 03/10/17 03:05 Room Air 03/10/17 00:00 99.0 100 16 138/80 (99) 97 03/09/17 22:35 18 03/09/17 21:10 98.7 107 17 128/78 (95) 98 03/09/17 16:00 97.3 99 18 115/72 (86) 94 I/O 03/09/17 03/09/17 03/09/17 03/10/17 03/10/17 03/10/17 07:00 15:00 23:00 07:00 15:00 23:00 Intake Total 240 ml 700 ml 1295 ml 240 ml Balance 240 ml 700 ml 1295 ml 240 ml Intake Oral 240 ml 600 ml 240 ml 240 ml IV Total 100 ml 1055 ml # Voids 3 3 2 5 # Bowel Movements 0 0 0 0 Result Diagram: 03/08/17 0800 03/10/17 0838 Objective Remarks No acute distress, lying in bed awake Unlabored breathing clear breath sounds bilaterally, left foot in dressing, able to move proximal lower extremities easily Pleasant and appropriate mood A/P Assessment and Plan 62 y/o female with a history of anxiety, depression, HLD, HTN, GERD, and tyroid nodules presented to the ED with complaints of left ankle pain. Ankle fracture, left bimalleolar Ankle x ray reviewed and shows a left bimalleolar ankle fracture -ortho following, POD 2; stable for d/c from ortho standpoint Acute kidney injury -resolved HTN - home lisinopril Anemia, chronic, unknown etiology, hgb 10.5, baseline 9 -Status post iron infusion panic disorder - home ativan prn panic HTN, chronic -resuming home medication Depression, chronic: continue sertraline. Psych following. DVT prophylaxis: Seferino Reese MD Mar 10, 2017 16:02
[2017-03-10 17:55] VITALS: O2SAT 99
[2017-03-10 20:25] VITALS: BP 137/90; PULSE 103; RESP 17; TEMP 97.9; O2SAT 99
[2017-03-10] MEDS: ENOXAPARIN SODIUM 30 MG/0.3 ML SYRINGE SQ SCH (23:24)
[2017-03-11] MEDS: LACTATED RINGER'S 1000 ML INJ 1,000 ML IV SCH ×3 (00:18→20:47)
[2017-03-11 00:30] VITALS: BP 135/78; PULSE 95; RESP 18; TEMP 98; O2SAT 98
[2017-03-11 04:20] VITALS: BP 147/82; PULSE 93; RESP 18; TEMP 98.8; O2SAT 100
[2017-03-11] MEDS: oxyCODONE/ACETAMINOPHEN 10 MG/325 MG TAB PO PRN ×4 (04:53→22:33)
--- NOTE | 2017-03-11 07:58 | PD.ORT.PN ---
Subjective Subjective Remarks pain tolerable. still some confusion. Objective Vitals Vital Signs Date Time Temp Pulse Resp B/P (MAP) Pulse Ox O2 Delivery O2 Flow Rate FiO2 03/11/17 05:58 16 03/11/17 04:20 98.8 93 18 147/82 (103) 100 03/11/17 00:30 98.0 95 18 135/78 (97) 98 03/10/17 20:25 97.9 103 17 137/90 (106) 99 03/10/17 17:55 99 21 03/10/17 16:00 98.3 95 18 153/93 (113) 97 03/10/17 12:00 97.3 76 18 155/79 (104) 100 03/10/17 08:00 96.6 89 18 167/93 (117) 95 I/O 03/10/17 03/10/17 03/10/17 03/11/17 03/11/17 03/11/17 07:00 15:00 23:00 07:00 15:00 23:00 Intake Total 240 ml 480 ml 480 ml 480 ml Balance 240 ml 480 ml 480 ml 480 ml Intake Oral 240 ml 480 ml 480 ml 480 ml # Voids 5 4 1 4 # Bowel Movements 0 1 0 1 Result Diagram: 03/08/17 0800 03/10/17 0838 Objective Remarks pt less confused, has hx of confusion and chronic pain Left ankle dressing dry and intact +NVI Fx boot R foot. sensation intact. cap refill. Assessment & Plan Assessment and Plan Bimalleolar fracture subluxation left ankle. Avulsion fracture right midfoot, possible sprain, Lisfranc's joint PLAN: POD #3 s/p ORIF L ankle. NWB. maintain splint. Non-surgical treatment of the right foot. Fx Boot. WBAT discontinue all narcotics other than what she was on pre op (Percocet 10 mg QID ) b/c of confusion d/c planning home vs SNF ortho stable f/up ortho 2 weeks Chris Lopez Mar 11, 2017 07:58
[2017-03-11 08:00] VITALS: BP 142/83; PULSE 92; RESP 16; TEMP 97.2; O2SAT 100
[2017-03-11] MEDS: HYDROCHLOROTHIAZIDE 12.5 MG CAP PO SCH (08:47)
[2017-03-11] MEDS: CALCIUM/VITAMIN D 250 MG/125 U TAB PO SCH ×3 (08:47→16:35)
[2017-03-11] MEDS: LISINOPRIL 10 MG TAB PO SCH (08:47)
[2017-03-11] MEDS: THIAMINE HCL 100 MG TAB PO SCH (08:47)
[2017-03-11] MEDS: QUEtiapine FUMARATE 25 MG TAB PO SCH ×2 (08:47→21:32)
[2017-03-11] MEDS: FOLIC ACID 1 MG TAB PO SCH (08:47)
[2017-03-11] MEDS: PANTOPRAZOLE SOD 40 MG DELAYED RELEASE TAB PO SCH (08:48)
[2017-03-11] MEDS: buPROPion HCL 150 MG EXTENDED RELEASE TAB PO SCH (08:48)
[2017-03-11] MEDS: SERTRALINE HCL 100 MG TAB PO SCH (08:48)
[2017-03-11] MEDS: DOCUSATE SODIUM 50 MG/SENNA 8.6 MG TAB PO SCH ×2 (08:48→21:32)
[2017-03-11] MEDS: MULTIVITAMINS/MINERALS THERAPEUTIC TAB PO SCH (08:48)
[2017-03-11] MEDS: SODIUM CHLORIDE 0.9% FLUSH 5 ML FLUSH IVF SCH ×2 (08:53→21:33)
[2017-03-11 12:00] VITALS: BP 146/94; PULSE 113; RESP 16; TEMP 98.8; O2SAT 100
--- NOTE | 2017-03-11 12:29 | HHI.DS ---
Discharge Summary Admission Date Mar 07, 2017 at 19:47 Discharge Date: Mar 11, 2017 Admitting Diagnosis Unstable Left Ankle fracture/Elevated Creatinine (1) Ankle fracture, bimalleolar, closed ICD Code: S82.843A - Displaced bimalleolar fracture of unspecified lower leg, initial encounter for closed fracture Status: Acute (2) Acute kidney injury ICD Code: N17.9 - Acute kidney injury Status: Resolved (3) Hypertension ICD Code: I10 - Essential (primary) hypertension Status: Chronic (4) Anemia ICD Code: D64.9 - Anemia, unspecified Status: Chronic Procedures s/p L ORIF ankle Brief History - From Admission 62 y/o female with a history of anxiety, depression, HLD, HTN, GERD, and tyroid nodules presented to the ED with complaints of left ankle pain. Patient states she fell maybe 4-5 days, she is really unsure, and refused to come to the hospital at that time. Then she fell again and had pain in both ankles so he brought her in. She denies any chest pain, sob, or dizziness prior to the fall. She denies hitting her head. She states she does not know why she fell , she says he legs became weak and she just fell. She states the pain is a constant throbbing pain in her left ankle, 8/10, improves with medication. She states she can not walk. She is acting somewhat strange, and is a little confused about the events prior to falling. CBC/BMP: 03/08/17 0800 03/10/17 0838 Significant Findings Laboratory Tests Test 03/09/17 06:34 03/10/17 08:38 Iron Level 20 MCG/DL (50-170) Percent Iron Saturation 7.1 % (20-50) Random Glucose 109 MG/DL (74-106) Potassium Level 3.1 MEQ/L (3.5-5.1) Chloride Level 108 MEQ/L (98-107) Imaging Last Impressions Ankle X-Ray 03/08/17 0000 Signed Impressions: Service Date/Time: February 12:31 - CONCLUSION: Two-view left ankle demonstrates the patient has had open reduction internal fixation of a medial malleolar and lateral fibular fracture. There is no complication. Hardware is in excellent position. Question a nondisplaced posterior malleolar fracture. Oj Erwin MD Foot X-Ray [id number]/07/[id number] Signed Impressions: Service Date/Time: Tuesday, March 07, 2017 17:10 - CONCLUSION: Ankle fracture. Jacob Sullivan MD FACR Chest X-Ray [id number]/07/[id number] Signed Impressions: Service Date/Time: Tuesday, March 07, 2017 17:18 - CONCLUSION: No acute disease. Jacob Sullivan MD FACR PE at Discharge Patient awake alert oriented 3 Left leg and splint dressing, right leg and fracture boot Hospital Course Patient was admitted, underwent open reduction internal fixation of left ankle. Tolerated procedure well, had right foot managed nonsurgically with fracture boot. Patient had a few episodes of confusion and agitation requiring medical intervention (psychiatry was consulted and added Seroquel). Patient's mood had stabilized with the addition of Seroquel, and was tolerating by mouth intake well, physical therapy recommended rehabilitation placement. Patient has met maximum benefit from hospitalization and is clinically stable for discharge to rehabilitation facility. Case was discussed with psychiatry, stated that patient was psychiatrically clear for discharge to rehabilitation facility that as well. She will be discharged on the xarelto. Pt Condition on Discharge: Stable Discharge Disposition: Discharge Home Discharge Time: > 30 minutes Discharge Instructions DIET: Follow Instructions for: As Tolerated, No Restrictions Activities you can perform: See Additionl Instruction Other Activity Instructions: NWB on left foot. Maintain splint. Non-surgical treatment of the right foot with Fx Boot and WBAT Follow up Referrals: Orthopedics - 2 Weeks with Sorin Huggins MD PCP Follow-up - 1 Week Continued Medications: Bupropion HCl ER 24 HR (Wellbutrin Xl 24 HR) 300 Mg Tab 300 MG PO DAILY for Control Depression, TAB 0 Refills Hydrochlorothiazide (Hydrochlorothiazide) 12.5 Mg Cap 12.5 MG PO DAILY, #30 CAP 0 Refills Lisinopril (Lisinopril) 10 Mg Tab 10 MG PO DAILY, #30 TAB 0 Refills Pantoprazole (Pantoprazole) 40 Mg Tab 40 MG PO DAILY for health, #30 TAB 0 Refills Sertraline (Sertraline) 100 Mg Tab 150 MG PO DAILY, #30 TAB 0 Refills Sertraline (Zoloft) 100 Mg Tab 100 MG PO DAILY for health, #30 TAB 0 Refills Discontinued Medications: Ciprofloxacin (Cipro) 250 Mg Tab 250 MG PO Q12H for health, #3 TAB Seferino Gao MD Mar 11, 2017 12:29
--- NOTE | 2017-03-11 12:32 | HHI.DCPOC ---
Discharge Care Plan Additional Problems left ankle fracture Goals to Promote Your Health * To prevent worsening of your condition and complications * To maintain your health at the optimal level Directions to Meet Your Goals Take your medications as prescribed Follow your dietary instruction Follow activity as directed Keep your appointments as scheduled Take your immunizations and boosters as scheduled If your symptoms worsen call your PCP, if no PCP go to Urgent Care Center or Emergency Room Smoking is Dangerous to Your Health. Avoid second hand smoke Call the 24-hour hour crisis hotline for domestic abuse at Seferino Gao MD Mar 11, 2017 12:32
[2017-03-11] MEDS ORDERED: PERC10TA27 PO (12:35)
[2017-03-11] MEDS ORDERED: POTASSIUM CHLORIDE 10 MEQ CONTROLLED RELEASE TAB PO ONE (12:45)
[2017-03-11] MEDS ORDERED: XARE10TA PO (12:45)
[2017-03-11] MEDS ORDERED: QUET1TAB7 PO (12:45)
[2017-03-11] MEDS ORDERED: POTA-243 PO (12:49)
--- NOTE | 2017-03-11 14:30 | HHI.PYPN ---
Subjective Remarks Patient is seen today for psychiatric reevaluation, patient reports she feels much better, reports good mood, she says that she is motivated to continue her medical treatment and get better physically. She is planning to continue also her psychotropics. She denies depressive symptoms, she denies anxiety, she denies piper or psychosis. The patient denies suicidal and homicidal ideation, she denies visual and auditory hallucinations. Patient is oriented 3 attention deficit, no fluctuation of consciousness at this moment. Review of Systems Other No somatic complains at this moment Objective Alert: Yes [place]: Person, Place, Date, Situation Mood: Calm Affect: Appropriate Memory Intact: Immediate, Recent Hallucinations: Other (none) Delusions: No Delusion Type: Other (no elicited ) Suicidal: Ideation (No SI) Homicidal: Ideation (No HI) Insight/Judgment good Vitals/IOs Vital Signs Date Time Temp Pulse Resp B/P (MAP) Pulse Ox O2 Delivery O2 Flow Rate FiO2 03/11/17 08:00 97.2 92 16 142/83 (102) 100 03/10/17 17:55 21 03/10/17 03:05 Room Air Intake and Output 03/11/17 03/11/17 03/12/17 08:00 16:00 00:00 Intake Total 480 ml Balance 480 ml Assessment & Plan Problem List: (1) Delirium due to medical condition with behavioral disturbance ICD Codes: F05 - Delirium due to known physiological condition Status: Acute Assessment & Plan: On psychiatric evaluation today the patient does not present any symptomatology of depression, anxiety, piper or psychosis. Patient denies suicidal and homicidal ideation, she denies visual and auditory hallucinations. Patient is oriented 3, logical, coherent, relevant, without any fluctuation of consciousness, or attention deficit present. She does not need any immediate psychiatric intervention. Patient is psychiatrically cleared to continue her medical treatment and to be discharged back home. Patient can continue her psychiatric care as an outpatient. Continue Zoloft 150 mg. Since patient does not present any symptoms of delirium or psychosis Seroquel 25 mg twice a day can be discontinue. Assessment & Plan Estimated LOS: days Justification for Cont. Inpt. Patient does not meet criteria for psychiatric admission at this moment. Sanket Avalos MD Mar 11, 2017 14:30
[2017-03-11 16:00] VITALS: BP 138/89; PULSE 97; RESP 16; TEMP 98.9; O2SAT 100
[2017-03-11 20:20] VITALS: BP 139/94; PULSE 104; RESP 18; TEMP 98.9; O2SAT 100
[2017-03-11] MEDS: ENOXAPARIN SODIUM 30 MG/0.3 ML SYRINGE SQ SCH (21:33)
[2017-03-12] MEDS ORDERED: MORPHINE SULFATE 4 MG/ML INJ IV PUSH ONE (00:30)
[2017-03-12 00:48] VITALS: BP 126/99; PULSE 93; RESP 17; TEMP 97.5; O2SAT 99
[2017-03-12] MEDS: oxyCODONE/ACETAMINOPHEN 10 MG/325 MG TAB PO PRN ×5 (04:15→22:59)
[2017-03-12] MEDS: LACTATED RINGER'S 1000 ML INJ 1,000 ML IV SCH (06:47)
[2017-03-12 08:00] VITALS: BP 133/71; PULSE 90; RESP 17; TEMP 97.5; O2SAT 100
--- NOTE | 2017-03-12 09:48 | HHI.PR ---
Subjective Remarks History from admission: 62 y/o female with a history of anxiety, depression, HLD, HTN, GERD, and tyroid nodules presented to the ED with complaints of left ankle pain. Patient states she fell maybe 4-5 days, she is really unsure, and refused to come to the hospital at that time. Then she fell again and had pain in both ankles so he brought her in. She denies any chest pain, sob, or dizziness prior to the fall. She denies hitting her head. She states she does not know why she fell , she says he legs became weak and she just fell. She states the pain is a constant throbbing pain in her left ankle, 8/10, improves with medication. She states she can not walk. She is acting somewhat strange, and is a little confused about the events prior to falling. the patient underwent Open reduction and internal fixation of the left ankle, was discharged yesterday to Inpatient Rehab unit. her Potassium level was 3.1 will follow at this time after discuss with nurse Miss Quintero she is awaiting for SNF placement. 03/12: Seen in her bedroom stable okay to discharge but at this time her Potassium is 2.8 started replacement her magnesium also in 1.6 giving replacement and following no nausea, vomit or diarrhea Objective Vital Signs Date Time Temp Pulse Resp B/P (MAP) Pulse Ox O2 Delivery O2 Flow Rate FiO2 03/12/17 00:48 97.5 93 17 126/99 (108) 99 03/11/17 20:20 98.9 104 18 139/94 (109) 100 03/11/17 16:00 98.9 97 16 138/89 (105) 100 03/11/17 12:00 98.8 113 16 146/94 (111) 100 I/O 03/11/17 03/11/17 03/11/17 03/12/17 03/12/17 03/12/17 06:59 14:59 22:59 06:59 14:59 22:59 Intake Total 480 ml 600 ml 480 ml 480 ml Balance 480 ml 600 ml 480 ml 480 ml Intake Oral 480 ml 600 ml 480 ml 480 ml # Voids 4 4 3 6 # Bowel Movements 1 0 1 0 Result Diagram: 03/08/17 0800 03/10/17 0838 Imaging Last Impressions Ankle X-Ray 03/08/17 0000 Signed Impressions: Service Date/Time: February 12:31 - CONCLUSION: Two-view left ankle demonstrates the patient has had open reduction internal fixation of a medial malleolar and lateral fibular fracture. There is no complication. Hardware is in excellent position. Question a nondisplaced posterior malleolar fracture. Oj Erwin MD Foot X-Ray 03/07/17 1638 Signed Impressions: Service Date/Time: Tuesday, March 07, 2017 17:10 - CONCLUSION: Ankle fracture. Jacob Sullivan MD FACR Chest X-Ray 03/07/17 1638 Signed Impressions: Service Date/Time: Tuesday, March 07, 2017 17:18 - CONCLUSION: No acute disease. Jacob Sullivan MD FACR Procedures Left Ankle ORIF. Other Results Laboratory Tests Test 03/07/17 17:55 03/08/17 03:50 03/08/17 08:00 03/09/17 06:34 Blood Urea Nitrogen 59 MG/DL Creatinine 2.16 MG/DL Random Glucose 85 MG/DL Total Protein 7.8 GM/DL Albumin 3.6 GM/DL Calcium Level 9.6 MG/DL Magnesium Level 3.6 MG/DL Alkaline Phosphatase 79 U/L Aspartate Amino Transf (AST/SGOT) 92 U/L Alanine Aminotransferase (ALT/SGPT) 69 U/L Total Bilirubin 0.4 MG/DL Sodium Level 140 MEQ/L Potassium Level 4.6 MEQ/L Chloride Level 112 MEQ/L Carbon Dioxide Level 13.8 MEQ/L Urine Color LIGHT-YELLOW Urine Turbidity CLEAR Urine pH 6.0 Urine Specific [place] 1.010 Urine Protein TRACE mg/dL Urine Glucose (UA) NEG mg/dL Urine Ketones 40 mg/dL Urine Occult Blood TRACE Urine Nitrite NEG Urine Bilirubin NEG Urine Urobilinogen LESS THAN 2.0 MG/DL Urine Leukocyte Esterase NEG Urine RBC 1 /hpf Urine WBC 1 /hpf Urine Squamous Epithelial Cells <1 /hpf Urine Bacteria RARE /hpf Urine Mucus FEW /lpf Microscopic Urinalysis Comment CULT NOT INDICATED White Blood Count 6.4 TH/MM3 Red Blood Count 2.90 MIL/MM3 Hemoglobin 8.7 GM/DL Hematocrit 26.8 % Mean Corpuscular Volume 92.3 FL Mean Corpuscular Hemoglobin 29.9 PG Mean Corpuscular Hemoglobin Concent 32.4 % Red Cell Distribution Width 15.2 % Platelet Count 219 TH/MM3 Mean Platelet Volume 9.5 FL Neutrophils (%) (Auto) 73.8 % Lymphocytes (%) (Auto) 16.3 % Monocytes (%) (Auto) 7.6 % Eosinophils (%) (Auto) 1.9 % Basophils (%) (Auto) 0.4 % Neutrophils # (Auto) 4.7 TH/MM3 Lymphocytes # (Auto) 1.0 TH/MM3 Monocytes # (Auto) 0.5 TH/MM3 Eosinophils # (Auto) 0.1 TH/MM3 Basophils # (Auto) 0.0 TH/MM3 CBC Comment DIFF FINAL Differential Comment Iron Level 20 MCG/DL Total Iron Binding Capacity 281 MCG/DL Percent Iron Saturation 7.1 % Ferritin 179 NG/ML Test 03/10/17 08:38 Blood Urea Nitrogen 15 MG/DL Creatinine 0.64 MG/DL Random Glucose 109 MG/DL Calcium Level 10.0 MG/DL Sodium Level 143 MEQ/L Potassium Level 3.1 MEQ/L Chloride Level 108 MEQ/L Carbon Dioxide Level 26.6 MEQ/L Anion Gap 8 MEQ/L Estimat Glomerular Filtration Rate 95 ML/MIN Objective Remarks GENERAL: This is a well-nourished, well-developed patient, in no apparent distress. SKIN: Left ankle splinted, warm to touch, good cap refill HEAD: Atraumatic. Normocephalic. EYES: Pupils equal round and reactive. ENT: Nose without bleeding, purulent drainage or septal hematoma. Airway patent. NECK: Trachea midline. No JVD CARDIOVASCULAR: Regular rate and rhythm without murmurs, gallops, or rubs. RESPIRATORY: Clear to auscultation. Breath sounds equal bilaterally. No wheezes , rales, or rhonchi. GASTROINTESTINAL: Abdomen soft, non-tender, nondistended. MUSCULOSKELETAL:Left ankle pain, able to wiggle toes, right ankle with +1 edema NEUROLOGICAL: Awake and alert, confused with events. Motor and sensory grossly within normal limits. Normal speech. Medications and IVs Current Medications Medications (Trade) Dose Ordered Sig/Bertin Route Start Time Stop Time Status Last Admin (Tylenol) 650 mg Q4H PRN PO 03/07/17 21:00 (Lactulose Liq) 30 ml DAILY PRN PO 03/07/17 21:00 (Wellbutrin Xl 24 Hr) 300 mg DAILY PO 03/08/17 09:00 03/11/17 08:48 (Protonix) 40 mg DAILY PO 03/08/17 09:00 03/11/17 08:48 (Zoloft) 150 mg DAILY PO 03/08/17 09:00 03/11/17 08:48 (Folate) 1 mg DAILY PO 03/08/17 09:00 03/13/17 08:59 03/11/17 08:47 (Vitamin B1) 100 mg DAILY PO 03/08/17 09:00 03/11/17 08:47 Lactated Ringer's 1,000 ml @ 100 mls/hr Q10H IV 03/08/17 12:47 03/10/17 04:47 (NS Flush) 2 ml UNSCH PRN IVF 03/08/17 13:00 (NS Flush) 2 ml BID IVF 03/08/17 21:00 03/11/17 21:33 (Tona-Colace) 1 tab BID PO 03/08/17 21:00 03/11/17 21:32 (Milk Of Shauna Liq) 10 ml Q12H PRN PO 03/08/17 13:00 (Zofran Inj) 4 mg Q4H PRN IVP 03/08/17 13:00 (Oscal-D 250-125) 250 mg TID PO 03/08/17 13:00 03/11/17 16:35 (Theragran M Tab) 1 tab DAILY PO 03/09/17 09:00 03/11/17 08:48 (Benadryl) 25 mg Q6H PRN PO 03/08/17 13:00 (Narcan Inj) 0.4 mg UNSCH PRN IV 03/08/17 13:00 (Haldol Inj) 2 mg Q8H PRN IM 03/08/17 19:30 03/08/17 20:33 (Ativan Inj) 1 mg Q2H PRN IV PUSH 03/08/17 21:00 (Percocet 10-325 Mg) 1 tab Q6H PRN PO 03/09/17 07:30 03/12/17 04:15 (SEROquel) 25 mg BID PO 03/09/17 13:00 03/11/17 21:32 (Romazicon Inj) 0.2 mg Q1M PRN IV PUSH 03/09/17 13:00 (Ativan) 1 mg Q4H PRN PO 03/09/17 13:00 (Ativan Inj) 1 mg Q4H PRN IV PUSH 03/09/17 13:00 (Ativan) 2 mg Q2H PRN PO 03/09/17 13:00 (Ativan Inj) 2 mg Q2H PRN IV PUSH 03/09/17 13:00 (Ativan Inj) 2 mg Q1H PRN IV PUSH 03/09/17 13:00 (Ativan Inj) 2 mg Q15M PRN IV PUSH 03/09/17 13:00 (Lovenox Inj) 30 mg Q24H SQ 03/09/17 21:00 03/11/17 21:33 (Microzide) 12.5 mg DAILY PO 03/09/17 19:30 03/11/17 08:47 (Prinivil) 10 mg DAILY PO 03/09/17 19:30 03/11/17 08:47 Patient Own Medication PT OWN MED: Alprazo... HS PO 03/09/17 21:00 Future Hold A/P Assessment and Plan 62 y/o female with a history of anxiety, depression, HLD, HTN, GERD, and tyroid nodules presented to the ED with complaints of left ankle pain. Ankle fracture, left bimalleolar Ankle x ray reviewed and shows a left bimalleolar ankle fracture -ortho following, POD 2; stable for d/c from ortho standpoint Acute kidney injury -resolved HTN CONTROLLED. Anemia, chronic, unknown etiology, hgb 10.5, baseline 9 -Status post iron infusion panic disorder - home ativan prn panic HTN, chronic -resuming home medication Depression, chronic: continue sertraline. Psych following. electrolyte derangement replacing. DVT prophylaxis: Lovenox Discharge Planning Expected by tomorrow. Ed Corrales MD Mar 12, 2017 09:48
[2017-03-12] MEDS: LISINOPRIL 10 MG TAB PO SCH (10:14)
[2017-03-12] MEDS: DOCUSATE SODIUM 50 MG/SENNA 8.6 MG TAB PO SCH ×2 (10:15→21:12)
[2017-03-12] MEDS: THIAMINE HCL 100 MG TAB PO SCH (10:16)
[2017-03-12] MEDS: PANTOPRAZOLE SOD 40 MG DELAYED RELEASE TAB PO SCH (10:16)
[2017-03-12] MEDS: FOLIC ACID 1 MG TAB PO SCH (10:17)
[2017-03-12] MEDS: HYDROCHLOROTHIAZIDE 12.5 MG CAP PO SCH (10:17)
[2017-03-12] MEDS: QUEtiapine FUMARATE 25 MG TAB PO SCH ×2 (10:18→21:11)
[2017-03-12] MEDS: MULTIVITAMINS/MINERALS THERAPEUTIC TAB PO SCH (10:18)
[2017-03-12] MEDS: CALCIUM/VITAMIN D 250 MG/125 U TAB PO SCH ×3 (10:18→18:28)
[2017-03-12] MEDS: SERTRALINE HCL 100 MG TAB PO SCH (10:20)
[2017-03-12] MEDS: buPROPion HCL 150 MG EXTENDED RELEASE TAB PO SCH (10:20)
[2017-03-12] MEDS: diphenhydrAMINE HCL 25 MG CAP PO PRN ×2 (10:21→21:14)
[2017-03-12] MEDS: SODIUM CHLORIDE 0.9% FLUSH 5 ML FLUSH IVF SCH ×2 (10:22→21:16)
[2017-03-12 11:36] LABS: HEMATOCRIT 29.9 % (35.0-46.0)
[2017-03-12 11:48] LABS: MAGNESIUM 1.8 MG/DL (1.5-2.5)
[2017-03-12 11:58] LABS: POTASSIUM 2.8 MEQ/L (3.5-5.1)
[2017-03-12 12:00] VITALS: BP 137/77; PULSE 78; RESP 19; TEMP 97.2; O2SAT 97
[2017-03-12] MEDS ORDERED: POTASSIUM CHLORIDE 20 MEQ CONTROLLED RELEASE TAB PO ONE ×2 (12:30→16:00)
[2017-03-12] MEDS: MAGNESIUM SULFATE 1 GM PREMIX 100 ML IV SCH ×2 (14:41→18:29)
[2017-03-12 16:00] VITALS: BP 124/69; PULSE 95; RESP 18; TEMP 97.8; O2SAT 100
[2017-03-12 19:41] VITALS: BP 111/76; PULSE 92; RESP 18; TEMP 98.6; O2SAT 99
[2017-03-12] MEDS: ENOXAPARIN SODIUM 30 MG/0.3 ML SYRINGE SQ SCH (21:13)
[2017-03-12 23:49] VITALS: BP 112/68; PULSE 86; RESP 18; TEMP 98; O2SAT 99
[2017-03-13] MEDS: oxyCODONE/ACETAMINOPHEN 10 MG/325 MG TAB PO PRN ×4 (03:17→17:02)
[2017-03-13 05:16] VITALS: BP 130/80; PULSE 81; RESP 18; TEMP 96.7; O2SAT 99
[2017-03-13 08:00] VITALS: BP 120/75; PULSE 86; RESP 16; TEMP 97.9; O2SAT 100
[2017-03-13] MEDS: diphenhydrAMINE HCL 25 MG CAP PO PRN (08:22)
[2017-03-13] MEDS: SERTRALINE HCL 100 MG TAB PO SCH (08:23)
[2017-03-13] MEDS: buPROPion HCL 150 MG EXTENDED RELEASE TAB PO SCH (08:23)
[2017-03-13] MEDS: MULTIVITAMINS/MINERALS THERAPEUTIC TAB PO SCH (08:24)
[2017-03-13] MEDS: CALCIUM/VITAMIN D 250 MG/125 U TAB PO SCH ×3 (08:24→17:02)
[2017-03-13] MEDS: PANTOPRAZOLE SOD 40 MG DELAYED RELEASE TAB PO SCH (08:24)
[2017-03-13] MEDS: DOCUSATE SODIUM 50 MG/SENNA 8.6 MG TAB PO SCH (08:24)
[2017-03-13] MEDS: QUEtiapine FUMARATE 25 MG TAB PO SCH (08:24)
[2017-03-13] MEDS: HYDROCHLOROTHIAZIDE 12.5 MG CAP PO SCH (08:25)
[2017-03-13] MEDS: SODIUM CHLORIDE 0.9% FLUSH 5 ML FLUSH IVF SCH (08:25)
[2017-03-13] MEDS: LISINOPRIL 10 MG TAB PO SCH (08:25)
[2017-03-13] MEDS: THIAMINE HCL 100 MG TAB PO SCH (09:00)
[2017-03-13 12:00] VITALS: BP 115/69; PULSE 96; RESP 16; TEMP 98; O2SAT 100
[2017-03-13 12:52] LABS: MAGNESIUM 2.4 MG/DL (1.5-2.5); POTASSIUM 4.1 MEQ/L (3.5-5.1)
--- NOTE | 2017-03-13 14:10 | HHI.PR ---
Subjective Remarks History from admission: 62 y/o female with a history of anxiety, depression, HLD, HTN, GERD, and tyroid nodules presented to the ED with complaints of left ankle pain. Patient states she fell maybe 4-5 days, she is really unsure, and refused to come to the hospital at that time. Then she fell again and had pain in both ankles so he brought her in. She denies any chest pain, sob, or dizziness prior to the fall. She denies hitting her head. She states she does not know why she fell , she says he legs became weak and she just fell. She states the pain is a constant throbbing pain in her left ankle, 8/10, improves with medication. She states she can not walk. She is acting somewhat strange, and is a little confused about the events prior to falling. the patient underwent Open reduction and internal fixation of the left ankle, was discharged yesterday to Inpatient Rehab unit. her Potassium level was 3.1 will follow at this time after discuss with nurse Miss Quintero she is awaiting for SNF placement. 03/12: Seen in her bedroom stable okay to discharge but at this time her Potassium is 2.8 started replacement her magnesium also in 1.6 giving replacement and following 03/13: Stable in her bedroom accepted to go to Rehab as recommended by Orthopedic surgery and Physical Therapy. no complaint no nausea, vomit or diarrhea. Objective Vital Signs Date Time Temp Pulse Resp B/P (MAP) Pulse Ox O2 Delivery O2 Flow Rate FiO2 03/13/17 08:00 97.9 86 16 120/75 (90) 100 03/13/17 05:16 96.7 81 18 130/80 (97) 99 03/12/17 23:49 98.0 86 18 112/68 (83) 99 03/12/17 19:41 98.6 92 18 111/76 (88) 99 03/12/17 16:00 97.8 95 18 124/69 (87) 100 I/O 03/12/17 03/12/17 03/12/17 03/13/17 03/13/17 03/13/17 07:00 15:00 23:00 07:00 15:00 23:00 Intake Total 480 ml 720 ml 480 ml 240 ml Balance 480 ml 720 ml 480 ml 240 ml Intake Oral 480 ml 720 ml 480 ml 240 ml # Voids 6 3 4 3 # Bowel Movements 0 1 0 1 Result Diagram: 03/12/17 1116 03/13/17 1210 Imaging Last Impressions Ankle X-Ray 03/08/17 0000 Signed Impressions: Service Date/Time: February 12:31 - CONCLUSION: Two-view left ankle demonstrates the patient has had open reduction internal fixation of a medial malleolar and lateral fibular fracture. There is no complication. Hardware is in excellent position. Question a nondisplaced posterior malleolar fracture. Oj Erwin MD Foot X-Ray 03/07/17 1638 Signed Impressions: Service Date/Time: Tuesday, March 07, 2017 17:10 - CONCLUSION: Ankle fracture. Jacob Sullivan MD FACR Chest X-Ray 03/07/171637 Signed Impressions: Service Date/Time: Tuesday, March 07, 2017 17:18 - CONCLUSION: No acute disease. Jacob Sullivan MD FACR Procedures Left Ankle ORIF. Other Results Laboratory Tests Test 03/07/17 17:55 03/08/17 03:50 03/08/17 08:00 03/09/17 06:34 Blood Urea Nitrogen 59 MG/DL Creatinine 2.16 MG/DL Random Glucose 85 MG/DL Total Protein 7.8 GM/DL Albumin 3.6 GM/DL Calcium Level 9.6 MG/DL Magnesium Level 3.6 MG/DL Alkaline Phosphatase 79 U/L Aspartate Amino Transf (AST/SGOT) 92 U/L Alanine Aminotransferase (ALT/SGPT) 69 U/L Total Bilirubin 0.4 MG/DL Sodium Level 140 MEQ/L Potassium Level 4.6 MEQ/L Chloride Level 112 MEQ/L Carbon Dioxide Level 13.8 MEQ/L Urine Color LIGHT-YELLOW Urine Turbidity CLEAR Urine pH 6.0 Urine Specific [place] 1.010 Urine Protein TRACE mg/dL Urine Glucose (UA) NEG mg/dL Urine Ketones 40 mg/dL Urine Occult Blood TRACE Urine Nitrite NEG Urine Bilirubin NEG Urine Urobilinogen LESS THAN 2.0 MG/DL Urine Leukocyte Esterase NEG Urine RBC 1 /hpf Urine WBC 1 /hpf Urine Squamous Epithelial Cells <1 /hpf Urine Bacteria RARE /hpf Urine Mucus FEW /lpf Microscopic Urinalysis Comment CULT NOT INDICATED White Blood Count 6.4 TH/MM3 Red Blood Count 2.90 MIL/MM3 Mean Corpuscular Volume 92.3 FL Mean Corpuscular Hemoglobin 29.9 PG Mean Corpuscular Hemoglobin Concent 32.4 % Red Cell Distribution Width 15.2 % Platelet Count 219 TH/MM3 Mean Platelet Volume 9.5 FL Neutrophils (%) (Auto) 73.8 % Lymphocytes (%) (Auto) 16.3 % Monocytes (%) (Auto) 7.6 % Eosinophils (%) (Auto) 1.9 % Basophils (%) (Auto) 0.4 % Neutrophils # (Auto) 4.7 TH/MM3 Lymphocytes # (Auto) 1.0 TH/MM3 Monocytes # (Auto) 0.5 TH/MM3 Eosinophils # (Auto) 0.1 TH/MM3 Basophils # (Auto) 0.0 TH/MM3 CBC Comment DIFF FINAL Differential Comment Iron Level 20 MCG/DL Total Iron Binding Capacity 281 MCG/DL Percent Iron Saturation 7.1 % Ferritin 179 NG/ML Test 03/10/17 08:38 03/12/17 11:16 03/13/17 12:10 Blood Urea Nitrogen 15 MG/DL Creatinine 0.64 MG/DL Random Glucose 109 MG/DL Calcium Level 10.0 MG/DL Sodium Level 143 MEQ/L Potassium Level 3.1 MEQ/L 4.1 MEQ/L Chloride Level 108 MEQ/L Carbon Dioxide Level 26.6 MEQ/L Anion Gap 8 MEQ/L Estimat Glomerular Filtration Rate 95 ML/MIN Hemoglobin 9.8 GM/DL Hematocrit 29.9 % Magnesium Level 2.4 MG/DL Objective Remarks GENERAL: This is a well-nourished, well-developed patient, in no apparent distress. SKIN: Left ankle splinted, warm to touch, good cap refill HEAD: Atraumatic. Normocephalic. EYES: Pupils equal round and reactive. ENT: Nose without bleeding, purulent drainage or septal hematoma. Airway patent. NECK: Trachea midline. No JVD CARDIOVASCULAR: Regular rate and rhythm without murmurs, gallops, or rubs. RESPIRATORY: Clear to auscultation. Breath sounds equal bilaterally. No wheezes , rales, or rhonchi. GASTROINTESTINAL: Abdomen soft, non-tender, nondistended. MUSCULOSKELETAL:Left ankle pain, able to wiggle toes, right ankle with +1 edema NEUROLOGICAL: Awake and alert, confused with events. Motor and sensory grossly within normal limits. Normal speech. Medications and IVs Current Medications Medications (Trade) Dose Ordered Sig/Bertin Route Start Time Stop Time Status Last Admin (Tylenol) 650 mg Q4H PRN PO 03/07/17 21:00 (Lactulose Liq) 30 ml DAILY PRN PO 03/07/17 21:00 (Wellbutrin Xl 24 Hr) 300 mg DAILY PO 03/08/17 09:00 03/13/17 08:23 (Protonix) 40 mg DAILY PO 03/08/17 09:00 03/13/17 08:24 (Zoloft) 150 mg DAILY PO 03/08/17 09:00 03/13/17 08:23 (Vitamin B1) 100 mg DAILY PO 03/08/17 09:00 03/12/17 10:16 (NS Flush) 2 ml UNSCH PRN IVF 03/08/17 13:00 (NS Flush) 2 ml BID IVF 03/08/17 21:00 03/13/17 08:25 (Tona-Colace) 1 tab BID PO 03/08/17 21:00 03/13/17 08:24 (Milk Of Magnesia Liq) 10 ml Q12H PRN PO 03/08/17 13:00 (Zofran Inj) 4 mg Q4H PRN IVP 03/08/17 13:00 (Oscal-D 250-125) 250 mg TID PO 03/08/17 13:00 03/13/17 12:41 (Theragran M Tab) 1 tab DAILY PO 03/09/17 09:00 03/13/17 08:24 (Benadryl) 25 mg Q6H PRN PO 03/08/17 13:00 03/13/17 08:22 (Narcan Inj) 0.4 mg UNSCH PRN IV 03/08/17 13:00 (Haldol Inj) 2 mg Q8H PRN IM 03/08/17 19:30 03/08/17 20:33 (SEROquel) 25 mg BID PO 03/09/17 13:00 03/13/17 08:24 (Romazicon Inj) 0.2 mg Q1M PRN IV PUSH 03/09/17 13:00 (Lovenox Inj) 30 mg Q24H SQ 9/15/17 21:00 03/12/17 21:13 (Microzide) 12.5 mg DAILY PO 03/09/17 19:30 03/12/17 10:17 (Prinivil) 10 mg DAILY PO 03/09/17 19:30 03/12/17 10:14 Patient Own Medication PT OWN MED: Alprazo... HS PO 03/09/17 21:00 Future Hold (Percocet 10-325 Mg) 1 tab Q4H PRN PO 03/12/17 15:00 03/13/17 12:41 A/P Assessment and Plan 62 y/o female with a history of anxiety, depression, HLD, HTN, GERD, and tyroid nodules presented to the ED with complaints of left ankle pain. Ankle fracture, left bimalleolar Ankle x ray reviewed and shows a left bimalleolar ankle fracture -ortho following, POD 2; stable for d/c from ortho standpoint Acute kidney injury -resolved HTN CONTROLLED. Anemia, chronic, unknown etiology, hgb 10.5, baseline 9 -Status post iron infusion panic disorder - home ativan prn panic HTN, chronic -resuming home medication Depression, chronic: continue sertraline. Psych following. electrolyte derangement replaced DVT prophylaxis: Lovenox Discharge Planning Discharge to SNF now. Ed Corrales MD Mar 13, 2017 14:10
--- NOTE | 2017-03-13 14:12 | HHI.DS ---
Discharge Summary Admission Date Mar 07, 2017 at 19:47 Discharge Date: Mar 13, 2017 Admitting Diagnosis Unstable Left Ankle fracture/Elevated Creatinine (1) Ankle fracture, bimalleolar, closed ICD Code: S82.843A - Displaced bimalleolar fracture of unspecified lower leg, initial encounter for closed fracture Diagnosis: Principal Status: Acute (2) Acute kidney injury ICD Code: N17.9 - Acute kidney injury Diagnosis: Principal Status: Resolved (3) Hypertension ICD Code: I10 - Essential (primary) hypertension Diagnosis: Secondary Status: Chronic (4) Anemia ICD Code: D64.9 - Anemia, unspecified Diagnosis: Secondary Status: Chronic Procedures s/p L ORIF ankle Brief History - From Admission 62 y/o female with a history of anxiety, depression, HLD, HTN, GERD, and tyroid nodules presented to the ED with complaints of left ankle pain. Patient states she fell maybe 4-5 days, she is really unsure, and refused to come to the hospital at that time. Then she fell again and had pain in both ankles so he brought her in. She denies any chest pain, sob, or dizziness prior to the fall. She denies hitting her head. She states she does not know why she fell , she says he legs became weak and she just fell. She states the pain is a constant throbbing pain in her left ankle, 8/10, improves with medication. She states she can not walk. She is acting somewhat strange, and is a little confused about the events prior to falling. CBC/BMP: 03/12/17 1116 03/13/17 1210 Significant Findings Laboratory Tests Test 03/12/17 11:16 03/13/17 12:10 Hemoglobin 9.8 GM/DL (11.6-15.3) Hematocrit 29.9 % (35.0-46.0) Potassium Level 2.8 MEQ/L (3.5-5.1) Imaging Last Impressions Ankle X-Ray 03/08/17 0000 Signed Impressions: Service Date/Time: February 12:31 - CONCLUSION: Two-view left ankle demonstrates the patient has had open reduction internal fixation of a medial malleolar and lateral fibular fracture. There is no complication. Hardware is in excellent position. Question a nondisplaced posterior malleolar fracture. Oj Erwin MD Foot X-Ray 03/07/171637 Signed Impressions: Service Date/Time: Tuesday, March 07, 2017 17:10 - CONCLUSION: Ankle fracture. Jacob Sullivan MD FACR Chest X-Ray 03/07/171637 Signed Impressions: Service Date/Time: Sunday, March 07, 2017 17:18 - CONCLUSION: No acute disease. Jacob Sullivan MD FACR PE at Discharge GENERAL: This is a well-nourished, well-developed patient, in no apparent distress. SKIN: Left ankle splinted, warm to touch, good cap refill HEAD: Atraumatic. Normocephalic. EYES: Pupils equal round and reactive. ENT: Nose without bleeding, purulent drainage or septal hematoma. Airway patent. NECK: Trachea midline. No JVD CARDIOVASCULAR: Regular rate and rhythm without murmurs, gallops, or rubs. RESPIRATORY: Clear to auscultation. Breath sounds equal bilaterally. No wheezes , rales, or rhonchi. GASTROINTESTINAL: Abdomen soft, non-tender, nondistended. MUSCULOSKELETAL:Left ankle pain, able to wiggle toes, right ankle with +1 edema NEUROLOGICAL: Awake and alert, confused with events. Motor and sensory grossly within normal limits. Normal speech. Hospital Course History from admission: 62 y/o female with a history of anxiety, depression, HLD, HTN, GERD, and tyroid nodules presented to the ED with complaints of left ankle pain. Patient states she fell maybe 4-5 days, she is really unsure, and refused to come to the hospital at that time. Then she fell again and had pain in both ankles so he brought her in. She denies any chest pain, sob, or dizziness prior to the fall. She denies hitting her head. She states she does not know why she fell , she says he legs became weak and she just fell. She states the pain is a constant throbbing pain in her left ankle, 8/10, improves with medication. She states she can not walk. She is acting somewhat strange, and is a little confused about the events prior to falling. the patient underwent Open reduction and internal fixation of the left ankle, was discharged yesterday to Inpatient Rehab unit. her Potassium level was 3.1 will follow at this time after discuss with nurse Ingrid she is awaiting for SNF placement. 03/12: Seen in her bedroom stable okay to discharge but at this time her Potassium is 2.8 started replacement her magnesium also in 1.6 giving replacement and following 03/13: Stable in her bedroom accepted to go to Rehab as recommended by Orthopedic surgery and Physical Therapy. no complaint no nausea, vomit or diarrhea. Assessment and Plan 62 y/o female with a history of anxiety, depression, HLD, HTN, GERD, and tyroid nodules presented to the ED with complaints of left ankle pain. Ankle fracture, left bimalleolar Ankle x ray reviewed and shows a left bimalleolar ankle fracture -ortho following, POD 2; stable for d/c from ortho standpoint Acute kidney injury -resolved HTN CONTROLLED. Anemia, chronic, unknown etiology, hgb 10.5, baseline 9 -Status post iron infusion panic disorder - home ativan prn panic HTN, chronic -resuming home medication Depression, chronic: continue sertraline. Psych following. electrolyte derangement replaced DVT prophylaxis: Lovenox Discharge Planning Discharge to SNF now. Pt Condition on Discharge: Good Discharge Disposition: Discharge to SNF Discharge Time: > 30 minutes Discharge Instructions DIET: Follow Instructions for: As Tolerated, No Restrictions Activities you can perform: See Additionl Instruction Other Activity Instructions: NWB on left foot. Maintain splint.Non-surgical treatment of the right foot with Fx Boot and WBAT Ed Corrales MD Mar 13, 2017 14:12
== END 2017-03-13 17:27 | DRG 493 ==
LOC: NEDAMB 16:05 → NEDA 19:47 → N06A 22:15
PROVIDERS: ADMIT Internal Medicine; ATTEND Internal Medicine
PROC: 0QSH04Z Reposition Left Tibia with Internal Fixation Device, Open Approach (ICD-10-PCS; 2017-03-08)
PROC: 0QSK04Z Reposition Left Fibula with Internal Fixation Device, Open Approach (ICD-10-PCS; principal; 2017-03-08 11:14)
PROC: 2W3SXYZ Immobilization of Right Foot using Other Device (ICD-10-PCS; 2017-03-10)
DX: S82.842A Displaced bimalleolar fracture of left lower leg, initial encounter for closed fracture (principal); N17.9 Acute kidney failure, unspecified; F05 Delirium due to known physiological condition; Z78.1 Physical restraint status; S92.811A Other fracture of right foot, initial encounter for closed fracture; D64.9 Anemia, unspecified; S93.601A Unspecified sprain of right foot, initial encounter; F32.9 Major depressive disorder, single episode, unspecified; E04.2 Nontoxic multinodular goiter; E78.5 Hyperlipidemia, unspecified; K21.9 Gastro-esophageal reflux disease without esophagitis; F41.0 Panic disorder [episodic paroxysmal anxiety]; F17.210 Nicotine dependence, cigarettes, uncomplicated; G89.29 Other chronic pain; M54.5 Low back pain; E87.6 Hypokalemia; F10.21 Alcohol dependence, in remission; Z79.899 Other long term (current) drug therapy; W01.0XXA Fall on same level from slipping, tripping and stumbling without subsequent striking against object, initial encounter
CPT/HCPCS: 71010; 73600; 73610; 73630; 76000; 76937; 80048; 80053; 81001; 82728; 83540; 83550; 83735; 84132; 85014; 85018; 85025; 93005; 94150; 96361; 96374; 96375; C1713; J0690; J1170; J1580; J1630; J1650; J1756; J2060; J2250; J2270; J2370; J2405; J2710; J3010; J3475; J7030; J7040; J7120; L2114

== ENCOUNTER 2017-04-18 20:41 | Inpatient (IN) | payer BC ==
[~2017-04-18] VITALS: Ht 154.9 cm; Wt 69.1 kg
[~2017-04-18 20:41] MED LIST changes: -CIPR250T52 PO; -CLON1TAB PO; +KLOR10TA PO; +QUET1TAB7 PO; -XANA0.5T2 PO; +XARE10TA PO; -ZOLO100T PO
[2017-04-18] MEDS ORDERED: IOHEXOL 350 MG/ML 10 ML VIAL (for RAD DIAG) IVCONTRAST ONE (20:42)
[2017-04-18 20:47] VITALS: BP 133/62; PULSE 65; RESP 18; O2SAT 98
[2017-04-18 20:54] VITALS: TEMP 101.1
[2017-04-18] MEDS ORDERED: PIPERACIL-TAZO 4.5 GM PREMIX 100 ML IV STA (20:55)
[2017-04-18] MEDS ORDERED: VANCOMYCIN INJ 1,000 MG in SODIUM CHLOR 0.9% 250 ML INJ 250 ML IV STA (20:55)
[2017-04-18] MEDS ORDERED: SODIUM CHLOR 0.9% 1000 ML INJ 1,000 ML IV ONE (20:55)
[2017-04-18] MEDS ORDERED: SODIUM CHLOR 0.9% 1000 ML INJ 800 ML IV ONE (20:55)
--- NOTE | 2017-04-18 21:35 | RADRPT ---
EXAM DATE/TIME: 04/18/2017 21:08 [facility] COMPARISON: CHEST SINGLE AP, March 07, 2017, 17:18. INDICATIONS : Pain. Post fall. MEDICAL HISTORY : None. SURGICAL HISTORY : None. ENCOUNTER: Initial ACUITY: 1 day PAIN SCORE: 110 LOCATION: Bilateral chest FINDINGS: A single view of the chest demonstrates the lungs to be symmetrically aerated without evidence of mas s, infiltrate or effusion. The cardiomediastinal contours are unremarkable. Osseous structures are intact. CONCLUSION: No acute disease. Uday Estes MD on April 18, 2017 at 21:34 Board Certified Radiologist. This report was verified electronically.
[2017-04-18 21:47] LABS: BASOPHIL # 0.1 TH/MM3 (0-0.2); BASOPHIL % 0.4 % (0.0-2.0); EOSINOPHIL # 0.2 TH/MM3 (0-0.4); EOSINOPHIL % 1.4 % (0.0-4.0); HEMATOCRIT 28.4 % (35.0-46.0); HEMOGLOBIN 9.2 GM/DL (11.6-15.3); LYMPH % 15.5 % (9.0-44.0); LYMPHOCYTE # 2.1 TH/MM3 (1.0-4.8); MEAN CELL VOLUME 90.2 FL (80.0-100.0); MEAN CORPUSCULAR HEMOGLOBIN 29.1 PG (27.0-34.0); MEAN CORPUSCULAR HGB CONC 32.3 % (32.0-36.0); MEAN PLATELET VOLUME 9.7 FL (7.0-11.0); MONO % 8.8 % (0.0-8.0); MONOCYTE # 1.2 TH/MM3 (0-0.9); NEUT % 73.9 % (16.0-70.0); PLATELET COUNT 317 TH/MM3 (150-450); RED BLOOD COUNT 3.15 MIL/MM3 (4.00-5.30); WHITE BLOOD COUNT 13.5 TH/MM3 (4.0-11.0)
--- NOTE | 2017-04-18 22:05 | RADRPT ---
EXAM DATE/TIME: 04/18/2017 21:11 [facility] COMPARISON: ANKLE LEFT LIMITED (AP&LAT), March 08, 2017, 12:31. INDICATIONS : Left tibia/fibula pain post fall. ORIF one month ago. MEDICAL HISTORY : Left lower leg fracture. SURGICAL HISTORY : ORIF left ankle. ENCOUNTER: Initial ACUITY: 1 day PAIN SCORE: 7/10 LOCATION: Left tibia/fibula. FINDINGS: Ankle fracture fixation hardware appears grossly intact. Alignment is satisfactory. There is no defin ite evidence of acute bony injury. CONCLUSION: No new acute injury. Uday Estes MD on April 18, 2017 at 22:02 Board Certified Radiologist. This report was verified electronically.
[2017-04-18 22:06] LABS: ALBUMIN 2.3 GM/DL (3.4-5.0); AST (GOT) 158 U/L (15-37); BICARBONATE 24.4 MEQ/L (21.0-32.0); BLOOD UREA NITROGEN 21 MG/DL (7-18); CALCIUM 9.2 MG/DL (8.5-10.1); CHLORIDE 104 MEQ/L (98-107); CREATININE 0.84 MG/DL (0.50-1.00); GLOMERULAR FILTRATION RATE 69 ML/MIN (>89); GLUCOSE,RANDOM 106 MG/DL (74-106); SODIUM (NA) 136 MEQ/L (136-145)
[2017-04-18 22:08] LABS: ALT (GPT) 145 U/L (10-53)
[2017-04-18 22:10] LABS: ALKALINE PHOSPHATASE 190 U/L (45-117); TOTAL BILIRUBIN ADULT 0.3 MG/DL (0.2-1.0); TOTAL PROTEIN 6.9 GM/DL (6.4-8.2)
[2017-04-18] MEDS ORDERED: KETOROLAC TROMETHAMINE 30 MG/ML (IVP) VIAL IV PUSH ONE (22:15)
[2017-04-18] MEDS ORDERED: ACETAMINOPHEN 325 MG TAB PO ONE (22:15)
[2017-04-18 22:23] VITALS: BP 97/66; PULSE 96; RESP 18; O2SAT 99
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
--- NOTE | 2017-04-18 23:07 | RADRPT ---
EXAM DATE/TIME: 04/18/2017 22:33 [place] COMPARISON: No previous studies available for comparison. INDICATIONS : Left femur pain and swelling. Possible abscess. IV CONTRAST: 95 cc Omnipaque 350 (iohexol) IV RADIATION DOSE: 13.27 CTDIvol (mGy) MEDICAL HISTORY : Hypertension. Renal failure, chronic. SURGICAL HISTORY : None. ENCOUNTER: Initial ACUITY: 2 days PAIN SCALE: 8/10 LOCATION: Left femur TECHNIQUE: Volumetric scanning of the femur was performed. Using automated exposure control and adjustment of t he mA and/or kV according to patient size, radiation dose was kept as low as reasonably achievable to obtain optimal diagnostic quality images. DICOM format image data is available electronically for review and comparison. FINDINGS: BONES: No evidence of fracture. Alignment is within normal limits. JOINTS: Mild arthritic changes. SOFT TISSUES: Low density indurated changes involving the posterior and posterolateral soft tissues of the proximal to mid thigh. No evidence of underlying intramuscular or bony abnormality. CONCLUSION: Heterogeneous indurated changes in the subcutaneous tissues of the posterior and lateral proximal to mid thigh which may be bruising or cellulitic change. Correlation recommended Uday Estes MD on April 18, 2017 at 23:02 Board Certified Radiologist. This report was verified electronically.
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
[2017-04-18] MEDS ORDERED: SODIUM CHLORIDE 0.9% FLUSH 10 ML FLUSH IV FLUSH PRN (23:15)
[2017-04-18] MEDS ORDERED: LACTULOSE SYRUP 20 GM/30 ML CUP PO PRN (23:15)
[2017-04-18] MEDS ORDERED: ONDANSETRON HCL 4 MG/2 ML VIAL IVP PRN (23:15)
[2017-04-18] MEDS ORDERED: ACETAMINOPHEN 325 MG TAB PO PRN (23:15)
[2017-04-18] MEDS ORDERED: MAGNESIUM HYDROXIDE SUSP 30 ML CUP PO PRN (23:15)
[2017-04-18] MEDS ORDERED: Vancomycin Consult Pharmacy 1 EA OTHER SCH (23:15)
[2017-04-18] MEDS ORDERED: SENNOSIDES 8.6 MG TAB PO PRN (23:15)
[2017-04-18] MEDS ORDERED: ACETAMINOPHEN/HYDROcodone 325 MG/5 MG TAB PO PRN (23:15)
[2017-04-18] MEDS ORDERED: BISACODYL 10 MG SUPP RECTAL PRN (23:15)
[2017-04-19] VITALS (14 sets, daily range): BP systolic 83–131; BP diastolic 50–82; PULSE 66–90; RESP 16–24; TEMP 97.4–98.6; O2SAT 95–100
[2017-04-19] MEDS: SODIUM CHLOR 0.9% 1000 ML INJ 1,000 ML IV SCH ×3 (00:51→22:16)
[2017-04-19] MEDS ORDERED: SODIUM CHLOR 0.9% 1000 ML INJ 1,000 ML IV ONE (03:45)
[2017-04-19] MEDS ORDERED: CHLORHEXIDINE GLUCONATE 2 % 1 PACK (2 CLOTHS) TOP PRN (03:45)
[2017-04-19] MEDS ORDERED: MISCELLANEOUS NURSING INFORMATION XX SCH (03:45)
[2017-04-19] MEDS: CHLORHEXIDINE GLUCONATE 2 % 1 PACK (2 CLOTHS) TOP SCH (04:00)
[2017-04-19 04:04] LABS: BILIRUBIN, URINE NEG (NEG); BLOOD, URINE NEG (NEG); GLUCOSE,URINE NEG (NEG); KETONE, URINE NEG (NEG); NITRITE,URINE NEG (NEG); URINE COLOR LIGHT-YELLOW (YELLW/STRAW); URINE LEUKOCYTE ESTERASE LARGE (NEG)
[2017-04-19] MEDS: MORPHINE SULFATE 4 MG/ML INJ IV PUSH PRN ×2 (05:41→09:52)
[2017-04-19] MEDS: RIVAROXABAN 10 MG TAB PO SCH (09:00)
[2017-04-19] MEDS: QUEtiapine FUMARATE 25 MG TAB PO SCH ×2 (09:00→20:47)
[2017-04-19] MEDS: SODIUM CHLORIDE 0.9% FLUSH 10 ML FLUSH IV FLUSH SCH ×2 (09:00→20:47)
[2017-04-19] MEDS ORDERED: buPROPion HCL 150 MG EXTENDED RELEASE TAB PO SCH (09:00)
[2017-04-19 09:50] LABS: AUTOMATED NEUTROPHIL # 11.6 TH/MM3 (1.8-7.7); BASOPHIL # 0.1 TH/MM3 (0-0.2); BASOPHIL % 0.6 % (0.0-2.0); EOSINOPHIL # 0.2 TH/MM3 (0-0.4); EOSINOPHIL % 1.5 % (0.0-4.0); HEMATOCRIT 29.1 % (35.0-46.0); LYMPH % 11.5 % (9.0-44.0); LYMPHOCYTE # 1.7 TH/MM3 (1.0-4.8); MEAN CELL VOLUME 92.3 FL (80.0-100.0); MEAN CORPUSCULAR HEMOGLOBIN 28.6 PG (27.0-34.0); MEAN PLATELET VOLUME 9.5 FL (7.0-11.0); MONO % 7.6 % (0.0-8.0); MONOCYTE # 1.1 TH/MM3 (0-0.9); NEUT % 78.8 % (16.0-70.0); PLATELET COUNT 331 TH/MM3 (150-450); RED BLOOD COUNT 3.16 MIL/MM3 (4.00-5.30); RED CELL DISTRIBUTION WIDTH 15.3 % (11.6-17.2); WHITE BLOOD COUNT 14.7 TH/MM3 (4.0-11.0)
[2017-04-19] MEDS: VANCOMYCIN 1,000 MG/NS 250 ML IV SCH ×4 (09:51→22:20)
[2017-04-19] MEDS: SERTRALINE HCL 100 MG TAB PO SCH (09:52)
[2017-04-19] MEDS: PANTOPRAZOLE SOD 40 MG DELAYED RELEASE TAB PO SCH (09:52)
[2017-04-19] MEDS: DOCUSATE SODIUM 50 MG/SENNA 8.6 MG TAB PO SCH ×2 (09:52→20:47)
[2017-04-19] MEDS: LISINOPRIL 10 MG TAB PO SCH (09:52)
[2017-04-19] MEDS: CEFEPIME INJ 1,000 MG in SODIUM CHLORIDE 0.9% INJ 100 ML IV SCH ×2 (09:52→20:47)
[2017-04-19] MEDS: buPROPion HCL 150 MG SUSTAINED RELEASE TAB PO SCH ×2 (10:00→20:47)
[2017-04-19 10:04] LABS: ALBUMIN 2.1 GM/DL (3.4-5.0); AST (GOT) 82 U/L (15-37); BICARBONATE 17.2 MEQ/L (21.0-32.0); BLOOD UREA NITROGEN 17 MG/DL (7-18); CALCIUM 8.9 MG/DL (8.5-10.1); CHLORIDE 113 MEQ/L (98-107); CREATININE 0.82 MG/DL (0.50-1.00); GLOMERULAR FILTRATION RATE 71 ML/MIN (>89); GLUCOSE,RANDOM 94 MG/DL (74-106); SODIUM (NA) 139 MEQ/L (136-145)
[2017-04-19 10:05] LABS: ALT (GPT) 117 U/L (10-53)
[2017-04-19 10:07] LABS: ALKALINE PHOSPHATASE 174 U/L (45-117); TOTAL BILIRUBIN ADULT 0.3 MG/DL (0.2-1.0); TOTAL PROTEIN 6.5 GM/DL (6.4-8.2)
--- NOTE | 2017-04-19 11:19 | HHI.PR ---
Subjective Remarks Follow-up sepsis and left thigh cellulitis/abscess. Patient complains of left thigh pain scale of 10 out of 10. Had [place] juice at 8:00 this morning. Discussed with RN keep nothing by mouth and hold Xarelto. We'll touch base with general surgery. Objective Vitals Vital Signs Date Time Temp Pulse Resp B/P (MAP) Pulse Ox O2 Delivery O2 Flow Rate FiO2 04/19/17 06:00 100 Room Air 04/19/17 06:00 73 04/19/17 05:55 99 04/19/17 05:00 97.4 73 20 108/62 (77) 100 04/19/17 05:00 74 04/19/17 04:49 04/19/17 04:36 88 18 102/61 (75) 95 Room Air 04/19/17 03:46 98.0 66 18 91/52 (65) 99 Room Air 04/19/17 02:44 73 18 83/50 (61) 99 Room Air 04/19/17 01:47 73 16 98/60 (73) 95 Room Air 04/18/17 22:23 96 18 97/66 (76) 99 Room Air 04/18/17 20:59 98 Room Air 04/18/17 20:54 101.1 04/18/17 20:47 65 18 133/62 (85) 98 I/O 04/18/17 04/18/17 04/18/17 04/19/17 04/19/17 04/19/17 07:00 15:00 23:00 07:00 15:00 23:00 Intake Total 100 ml 1 ml Balance 100 ml 1 ml Intake Oral 1 ml IV Total 100 ml # Voids 1 # Bowel Movements 0 Result Diagram: 04/19/1752 04/19/1752 Imaging Last Impressions Chest X-Ray 04/18/172054 Signed Impressions: Service Date/Time: Tuesday, April 18, 2017 21:08 - CONCLUSION: No acute disease. Uday Estes MD Tibia/Fibula X-Ray 04/18/17 0000 Signed Impressions: Service Date/Time: Tuesday, April 18, 2017 21:11 - CONCLUSION: No new acute injury. Uday Estes MD Lower Extremity CT 04/18/17 0000 Signed Impressions: Service Date/Time: Tuesday, April 18, 2017 22:33 - CONCLUSION: Heterogeneous indurated changes in the subcutaneous tissues of the posterior and lateral proximal to mid thigh which may be bruising or cellulitic change. Correlation recommended Uday Estes MD Objective Remarks GENERAL: Middle-aged white female in distress secondary to pain HEENT: PERRLA, EOMI. No scleral icterus or conjunctival pallor. No lid lag or facial droop. CARDIOVASCULAR: Regular rate and rhythm. No obvious murmurs to auscultation. No chest tenderness to palpation. RESPIRATORY: No obvious rhonchi or wheezing. Clear to auscultation. Breath sounds equal bilaterally. GASTROINTESTINAL: Abdomen soft, non-tender, nondistended. BS normal. MUSCULOSKELETAL: Extremities without clubbing, cyanosis, or edema. No obvious deformities. LLE cast. Left thigh indurated mass, tenderness to palpation. RLE boot NEUROLOGICAL: Awake, alert and oriented x4. No focal neurologic deficits. Moving both upper and lower extremities spontaneously. A/P Problem List: (1) Sepsis ICD Code: A41.9 - Sepsis Status: Acute (2) Thigh abscess ICD Code: L02.419 - Cutaneous abscess of limb, unspecified (3) Dehydration ICD Code: E86.0 - Dehydration (4) Anemia ICD Code: D64.9 - Anemia, unspecified Assessment and Plan 1. Sepsis: Temp 101.1, HR 96, WBC 13.5, Source-Left Thigh Cellulitis/Abscess, s/p Blood Cultures, Vanc/Zosyn. Follow up cultures, continue IV Abx. 2. Left Thigh Abscess: Cellulitis/Abscess. CT LLE w/ heterogeneous indurative changes and subcutaneous tissue of the posterior and lateral proximal to mid thigh, bruising or cellulitis, images reviewed by me. S/p Vanc/ Zosyn as above, continue w/ IV Abx, follow up cultures. Gen Sx to eval for possible I&D. Nothing by mouth and hold Xarelto 3. Dehydration: GFR 69, BUN 21, Creatinine normal. IVF for hydration, repeat labs in am. 4. Anemia: Chronic. Hgb 9.2, previously 9.8 on 03/12/17. Will monitor. 5. Abnormal liver function tests acute on chronic. No history of hepatitis. Patient takes Percocet for chronic pain. Check Tylenol level and hepatitis profile. We'll monitor. Likely contributed by sepsis 6. Hypertension. Continue home medications with hold parameters DVT Prophylaxis: Hipolito Carrillo MD Apr 19, 2017 11:19
[2017-04-19] MEDS ORDERED: NALOXONE HCL 0.4 MG/ML AMP IV PUSH PRN (11:45)
[2017-04-19] MEDS ORDERED: GLYCOPYRROLATE 1 MG/5 ML SYRINGE IV PUSH ONE (12:00)
[2017-04-19] MEDS ORDERED: LIDOCAINE HCL 1% PF 5 ML AMPULE OTHER ONE (12:00)
[2017-04-19] MEDS ORDERED: ONDANSETRON HCL 4 MG/2 ML VIAL IV PUSH ONE (12:00)
[2017-04-19] MEDS ORDERED: MIDAZOLAM HCL 2 MG/2 ML VIAL IV ONE (12:00)
[2017-04-19] MEDS ORDERED: NEOSTIGMINE 3 MG/3 ML SYR IV ONE (12:00)
[2017-04-19] MEDS ORDERED: PHENYLEPH/NS 1000 MCG/10 ML SYR IV ONE (12:00)
[2017-04-19] MEDS ORDERED: PROPOFOL 200 MG/20 ML AMP IV ONE (12:00)
[2017-04-19] MEDS ORDERED: ROCURONIUM INJ 50 MG/5 ML SYRINGE IV PUSH ONE (12:00)
--- NOTE | 2017-04-19 12:49 | HHI.PR ---
Subjective Subjective Notes npo, lle pain, cellulitis Objective Vitals/I&O Vital Signs Date Time Temp Pulse Resp B/P (MAP) Pulse Ox O2 Delivery O2 Flow Rate FiO2 04/19/17 06:00 100 Room Air 04/19/17 06:00 73 04/19/17 05:00 97.4 20 108/62 (77) Labs Laboratory Tests Test 04/18/17 21:00 04/18/17 21:10 04/19/17 03:40 04/19/17 05:35 White Blood Count 13.5 Red Blood Count 3.15 Hemoglobin 9.2 Hematocrit 28.4 Mean Corpuscular Volume 90.2 Mean Corpuscular Hemoglobin 29.1 Mean Corpuscular Hemoglobin Concent 32.3 Red Cell Distribution Width 15.0 Platelet Count 317 Mean Platelet Volume 9.7 Neutrophils (%) (Auto) 73.9 Lymphocytes (%) (Auto) 15.5 Monocytes (%) (Auto) 8.8 Eosinophils (%) (Auto) 1.4 Basophils (%) (Auto) 0.4 Neutrophils # (Auto) 10.0 Lymphocytes # (Auto) 2.1 Monocytes # (Auto) 1.2 Eosinophils # (Auto) 0.2 Basophils # (Auto) 0.1 CBC Comment DIFF FINAL Differential Comment Blood Urea Nitrogen 21 Creatinine 0.84 Random Glucose 106 Total Protein 6.9 Albumin 2.3 Calcium Level 9.2 Alkaline Phosphatase 190 Aspartate Amino Transf (AST/SGOT) 158 Alanine Aminotransferase (ALT/SGPT) 145 Total Bilirubin 0.3 Sodium Level 136 Potassium Level 4.1 Chloride Level 104 Carbon Dioxide Level 24.4 Anion Gap 8 Estimat Glomerular Filtration Rate 69 Lactic Acid Level 1.1 Urine Color LIGHT-YELLOW Urine Turbidity CLEAR Urine pH 6.0 Urine Specific [place] GREATER THAN 1.050 Urine Protein TRACE Urine Glucose (UA) NEG Urine Ketones NEG Urine Occult Blood NEG Urine Nitrite NEG Urine Bilirubin NEG Urine Urobilinogen LESS THAN 2.0 Urine Leukocyte Esterase LARGE Urine RBC LESS THAN 1 Urine WBC 9 Microscopic Urinalysis Comment CATH-CULTURE IND Test 04/19/17 08:52 White Blood Count 14.7 Red Blood Count 3.16 Hemoglobin 9.0 Hematocrit 29.1 Mean Corpuscular Volume 92.3 Mean Corpuscular Hemoglobin 28.6 Mean Corpuscular Hemoglobin Concent 31.0 Red Cell Distribution Width 15.3 Platelet Count 331 Mean Platelet Volume 9.5 Neutrophils (%) (Auto) 78.8 Lymphocytes (%) (Auto) 11.5 Monocytes (%) (Auto) 7.6 Eosinophils (%) (Auto) 1.5 Basophils (%) (Auto) 0.6 Neutrophils # (Auto) 11.6 Lymphocytes # (Auto) 1.7 Monocytes # (Auto) 1.1 Eosinophils # (Auto) 0.2 Basophils # (Auto) 0.1 CBC Comment DIFF FINAL Differential Comment Blood Urea Nitrogen 17 Creatinine 0.82 Random Glucose 94 Total Protein 6.5 Albumin 2.1 Calcium Level 8.9 Alkaline Phosphatase 174 Aspartate Amino Transf (AST/SGOT) 82 Alanine Aminotransferase (ALT/SGPT) 117 Total Bilirubin 0.3 Sodium Level 139 Potassium Level 4.3 Chloride Level 113 Carbon Dioxide Level 17.2 Anion Gap 9 Estimat Glomerular Filtration Rate 71 Date/Time Source Procedure Growth Status 04/18/17 21:16 Blood Peripheral Aerobic Blood Culture - Preliminary NO GROWTH IN 1 DAY Resulted 04/18/17 21:16 Blood Peripheral Anaerobic Blood Culture - Preliminary NO GROWTH IN 1 DAY Resulted 04/19/17 03:40 Urine Catheterized Urine Urine Culture Pending Received A/P Assessment and Plan LLE abscess PLAN for OR for I and D with possible vac Lennox Simon MD Apr 19, 2017 12:49
--- NOTE | 2017-04-19 13:32 | HHI.PR ---
Immediate Post Op Note Procedure Date: Apr 19, 2017 Pre Op Diagnosis: left lower extremity abscess Post Op Diagnosis: same Surgeon: Lennox iSmon MD Chain Hoist Operator(s): see or sheet Procedure: I and D of left lower extremity with VAC Findings: pus Complications: none Specimen(s) removed: pus abscess Estimated blood loss: 5cc Anesthesia: General Drains: Hemovac Patient to: PACU Patient Condition: Good Lennox Simon MD Apr 19, 2017 13:32
--- NOTE | 2017-04-19 13:32 | HHI.PR ---
Immediate Post Op Note Procedure Date: Apr 19, 2017 Pre Op Diagnosis: left lower extremity abscess Post Op Diagnosis: same Surgeon: Lennox Simon MD Airport Operations Coordinator(s): see or sheet Procedure: I and D of left lower extremity with VAC Findings: pus Complications: none Specimen(s) removed: pus abscess Estimated blood loss: 5cc Anesthesia: General Drains: Hemovac Patient to: PACU Patient Condition: Good Lennox Simon MD Apr 19, 2017 13:32
[2017-04-19] MEDS ORDERED: DO NOT ADM ANY ANTICOAGULANT DRUGS PRN (15:30)
--- NOTE | 2017-04-19 18:45 | EKG ---
Date Performed: 04/18/2017 Time Performed: 20:58:27 PTAGE: 62 years EKG: SINUS TACHYCARDIA SINCE THE PRIOR TRACING THERE HAS BEEN IMPROVEMENT IN THE RESOLUTION OF NONSPECIFIC ST T-WAVE CHANGES. ABNORMAL RHYTHM ECG PREVIOUS TRACING : 03/07/2017 19.07 DOCTOR: Vianey Hdez Interpretating Date/Time 04/19/2017 18:44:14
--- NOTE | 2017-04-19 21:33 | MB ---
cc: GADIEL HORAN MD DATE OF CONSULTATION: 04/19/2017. REASON FOR CONSULTATION: Left leg abscess. HISTORY OF PRESENT ILLNESS: The patient is a 62-year-old female who presents with acute onset of left sided pain. The patient was noted to have a fall with a left ankle fracture and is status post open reduction internal fixation by Dr. Huggins on 03/08/2017. She was progressing relatively well; however, developed lethargy, altered mental status and a temperature 101.5. She also had some hypotension as well. She was taken to the emergency department. Further workup including resuscitation, IV fluids, workup with a WBC of 13.5. Chest x-ray was negative. Ankle x-ray was also no acute findings. She had a CT scan that showed and bruising cellulitis to the posterior aspect of the left leg. She was placed on IV antibiotics as well. Therefore surgery was consulted for evaluation of left posterior leg abscess. On my exam the patient is resting somewhat comfortably. She is currently afebrile and states she has very significant leg pain. She states the pain is an 8/10, sharp, and is located in the posterior proximal thigh and leg area and it continues to get worse. She also has associated cellulitis and noted fevers as previously stated. PAST MEDICAL HISTORY: 1. Hypertension. 2. Hyperlipidemia. 3. Depression. 4. Anxiety. PAST SURGICAL HISTORY: Open reduction internal fixation of left ankle. ALLERGIES: NO KNOWN DRUG ALLERGIES. FAMILY HISTORY: Denies hypertension and diabetes. SOCIAL HISTORY: Denies smoking, ethyl alcohol or IV drug abuse. MEDICATIONS: See the MAR. REVIEW OF SYSTEMS: GENERAL: Complains of fevers. HEAD, EYES, EARS, NOSE, THROAT: Denies eye pain, ear pain. NECK: Denies swelling. LUNGS: Denies cough or wheeze. HEART: Denies palpitations, chest pain. ABDOMEN: Denies nausea, vomiting, abdominal pain. EXTREMITIES: Complains of leg pain. No swelling. NEUROLOGIC: Denies change in mental status. PHYSICAL EXAMINATION: GENERAL: The patient is in no acute distress. VITAL SIGNS: Temperature 98.3. Pulse 98. Blood pressure 131/72. Saturation 100%. Respirations are 24. HEAD, EYES, EARS, NOSE, THROAT: Pupils equal, round and reactive to light and accommodation. NECK: The neck is supple. Trachea is midline. LUNGS: Clear to auscultation bilaterally. HEART: S1-S2 regular rhythm. ABDOMEN: The abdomen is soft, nontender and nondistended. EXTREMITIES: Posterior thigh has a 12 x 10 cm area of cellulitis, area of fluctuance with abscess noted. Tenderness to palpation. No palpable adenopathy. 2+ pulses all extremities. NEUROLOGIC: 5/5 in all extremities. GCS of 15. PSYCHIATRIC: Good insight. Normal mood. INTEGUMENT: Skin as above, cellulitic with abscess in the left extremity. LABORATORY AND DIAGNOSTIC DATA: WBCs 14.7, hemoglobin 9, hematocrit 29.1, platelet count 331,000. Sodium 139, potassium 4.3, chloride 113, BUN 17, creatinine 0.8, glucose 94, lactate 1.1. AST 82. ALT 117. Alkaline phosphatase 174. Albumin 2.1. CT scan reviewed by myself: Heterogeneous indurated changes subcutaneous tissue posterolateral proximal mid thigh, cellulitic with abscess cavity. ASSESSMENT: The patient is a 62-year-old female who presents with acute onset of left lower extremity abscess. PLAN: After full clinical, radiologic and laboratory workup, the patient with above-named issues including abscess cavity. At this point, agree with IV antibiotics, NPO, pain control, IV fluids and will plan to take the patient for operative intervention including incision and drainage with VAC placement. Discussed with the patient in detail who would like to proceed. MD WENDY Naranjo/IGOR /8:53 PM /9:09 PM
--- NOTE | 2017-04-19 23:30 | EKG ---
Date Performed: 04/19/2017 Time Performed: 12:38:50 PTAGE: 62 years EKG: Sinus rhythm ST junctional depression is nonspecific Borderline ECG PREVIOUS TRACING : 04/18/2017 20.58 Compared to prior tracing no significant change DOCTOR: Dean Hernandez Interpretating Date/Time 04/19/2017 23:28:41
[2017-04-20] VITALS (10 sets, daily range): BP systolic 93–157; BP diastolic 51–77; PULSE 68–102; RESP 16–20; TEMP 97.2–98.6; O2SAT 91–100
[2017-04-20] MEDS: CHLORHEXIDINE GLUCONATE 2 % 1 PACK (2 CLOTHS) TOP SCH (04:00)
[2017-04-20] MEDS: SODIUM CHLOR 0.9% 1000 ML INJ 1,000 ML IV SCH (05:05)
[2017-04-20 08:29] LABS: AUTOMATED NEUTROPHIL # 6.8 TH/MM3 (1.8-7.7); BASOPHIL % 0.5 % (0.0-2.0); EOSINOPHIL # 0.3 TH/MM3 (0-0.4); EOSINOPHIL % 2.8 % (0.0-4.0); HEMATOCRIT 21.9 % (35.0-46.0); HEMOGLOBIN 7.2 GM/DL (11.6-15.3); LYMPH % 21.8 % (9.0-44.0); LYMPHOCYTE # 2.2 TH/MM3 (1.0-4.8); MEAN CELL VOLUME 90.7 FL (80.0-100.0); MEAN CORPUSCULAR HEMOGLOBIN 29.8 PG (27.0-34.0); MEAN CORPUSCULAR HGB CONC 32.8 % (32.0-36.0); MEAN PLATELET VOLUME 9.3 FL (7.0-11.0); MONO % 6.6 % (0.0-8.0); MONOCYTE # 0.7 TH/MM3 (0-0.9); NEUT % 68.3 % (16.0-70.0); PLATELET COUNT 278 TH/MM3 (150-450); RED BLOOD COUNT 2.42 MIL/MM3 (4.00-5.30); WHITE BLOOD COUNT 9.9 TH/MM3 (4.0-11.0)
[2017-04-20 08:53] LABS: BICARBONATE 21.9 MEQ/L (21.0-32.0); CALCIUM 8.9 MG/DL (8.5-10.1); CREATININE 0.71 MG/DL (0.50-1.00); MAGNESIUM 1.9 MG/DL (1.5-2.5)
[2017-04-20] MEDS: LISINOPRIL 10 MG TAB PO SCH (09:00)
[2017-04-20] MEDS: QUEtiapine FUMARATE 25 MG TAB PO SCH ×2 (09:21→21:16)
[2017-04-20] MEDS: DOCUSATE SODIUM 50 MG/SENNA 8.6 MG TAB PO SCH ×2 (09:21→21:16)
[2017-04-20] MEDS: buPROPion HCL 150 MG SUSTAINED RELEASE TAB PO SCH ×2 (09:21→21:15)
[2017-04-20] MEDS: CEFEPIME INJ 1,000 MG in SODIUM CHLORIDE 0.9% INJ 100 ML IV SCH (09:21)
[2017-04-20] MEDS: SERTRALINE HCL 100 MG TAB PO SCH (09:22)
[2017-04-20] MEDS: PANTOPRAZOLE SOD 40 MG DELAYED RELEASE TAB PO SCH (09:22)
[2017-04-20] MEDS ORDERED: PHARMACY ORDERED LAB ONE (09:45)
[2017-04-20 10:19] LABS: HEPATITIS A AB IGM NEGATIVE (NEGATIVE); HEPATITIS B SURFACE ANTIGEN NEGATIVE (NEGATIVE); HEPATITIS C AB IgG NEGATIVE (NEGATIVE)
[2017-04-20] MEDS: VANCOMYCIN 1,000 MG/NS 250 ML IV SCH ×4 (11:24→21:15)
--- NOTE | 2017-04-20 11:37 | MP ---
cc: LENNOX SIMON MD DATE OF SURGERY: 04/19/2017 PREOPERATIVE DIAGNOSIS Left posterior thigh lower extremity abscess. POSTOPERATIVE DIAGNOSIS Left posterior thigh lower extremity abscess. PROCEDURE PERFORMED Incision and drainage of left posterior thigh extremity abscess with VAC placement. SURGEON Dr. Lennox Simon. MARKETING OPERATIONS ASSISTANT See OR sheet. ANESTHESIA General endotracheal. IV FLUIDS See anesthesia sheet. ESTIMATED BLOOD LOSS 10 cc. DRAINS Hemovac. COMPLICATIONS None. WOUND CLASSIFICATION Dirty contaminated. SPECIMEN Pus sent for culture. FINDINGS Purulent pus cavity, relatively large, 6 x 8 cm. Good seal on VAC. INDICATION The patient is a 62-year-old female who presents status post fall with bruising to posterior thigh. She also underwent ORIF of the left ankle. She developed continued increased swelling to the posterior thigh with fevers and concern for abscess. Therefore decision was made for I&D with VAC placement. DETAILS OF PROCEDURE The patient was taken to the operating suite and placed in a prone position. She was prepped and draped in the usual sterile fashion after induction of general endotracheal anesthesia. The left lower extremity was identified and prepped. The area of fluctuance was noted. A small elliptical area of skin was removed, approximately 2.5 cm. Significant purulent drainage material came. Cultures swabbed and sent. The pus was extruded. The cavity was irrigated thoroughly with normal saline irrigation. Necrotic tissue was debrided. Interdigitation to break up any loculations was done. Following this a VAC sponge was obtained and placed in the cavity. The plastic adhesive was then placed. A bridging sponge was placed toward the lateral aspect of the thigh, placed to suction with track pad placed. A good seal was noted on the VAC. The patient tolerated the procedure well and there was no intraoperative complication. All lap and instrument counts were correct at the end of the procedure. The patient was extubated and taken stable to the PACU. MD WENDY Naranjo/ERVIN /9:02 PM /11:22 AM
--- NOTE | 2017-04-20 11:40 | HHI.PR ---
Subjective Remarks Follow-up left thigh abscess. Improving pain. Hemoglobin 7.2 agrees with blood transfusion. Discussed with RN Objective Vitals Vital Signs Date Time Temp Pulse Resp B/P (MAP) Pulse Ox O2 Delivery O2 Flow Rate FiO2 04/20/17 11:33 97.2 102 18 115/69 (84) 98 04/20/17 08:00 97.4 86 18 99/58 (72) 91 04/20/17 06:17 98.6 79 20 93/55 (68) 98 04/20/17 04:03 Room Air 04/20/17 00:20 68 04/20/17 00:00 98.3 77 20 109/54 (72) 100 04/19/17 22:00 87 04/19/17 20:00 98.6 72 17 103/59 (74) 100 04/19/17 20:00 72 04/19/17 18:00 86 04/19/17 16:00 86 04/19/17 16:00 98.0 86 16 106/67 (80) 100 04/19/17 14:50 98.1 75 15 94/61 (72) 100 Nasal Cannula 2 04/19/17 14:40 79 16 95/60 (72) 99 Nasal Cannula 2 04/19/17 14:30 99 14 128/81 (97) 99 Nasal Cannula 2 04/19/17 14:19 98.1 88 20 100/55 (70) 92 Nasal Cannula 2 04/19/17 12:55 98.0 70 16 128/65 (86) 95 04/19/17 12:00 98.2 90 24 131/72 (91) 100 04/19/17 12:00 90 I/O 04/19/17 04/19/17 04/19/17 04/20/17 04/20/17 04/20/17 07:00 15:00 23:00 07:00 15:00 23:00 Intake Total 1 ml 950 ml 600 ml 1783 ml Output Total 25 ml 200 ml 0 ml Balance 1 ml 925 ml 400 ml 1783 ml Intake Oral 1 ml 500 ml 90 ml IV Total 350 ml 100 ml 1693 ml Other 600 ml Output Urine Total 200 ml 0 ml Estimated Blood Loss 25 ml # Voids 1 4 # Bowel Movements 0 0 Result Diagram: 04/20/1770304/20/17703 Objective Remarks GENERAL: Middle-aged white female in distress secondary to pain HEENT: PERRLA, EOMI. No scleral icterus or conjunctival pallor. No lid lag or facial droop. CARDIOVASCULAR: Regular rate and rhythm. No obvious murmurs to auscultation. No chest tenderness to palpation. RESPIRATORY: No obvious rhonchi or wheezing. Clear to auscultation. Breath sounds equal bilaterally. GASTROINTESTINAL: Abdomen soft, non-tender, nondistended. BS normal. MUSCULOSKELETAL: Extremities without clubbing, cyanosis, or edema. No obvious deformities. Left thigh with wound VAC. RLE boot NEUROLOGICAL: Awake, alert and oriented x4. No focal neurologic deficits. Moving both upper and lower extremities spontaneously. Procedures I and D of left thigh abscess A/P Problem List: (1) Sepsis ICD Code: A41.9 - Sepsis Status: Acute (2) Thigh abscess ICD Code: L02.419 - Cutaneous abscess of limb, unspecified (3) Dehydration ICD Code: E86.0 - Dehydration (4) Anemia ICD Code: D64.9 - Anemia, unspecified Assessment and Plan 1. Sepsis: Temp 101.1, HR 96, WBC 13.5, Source-Left Thigh Cellulitis/Abscess, s/p Blood Cultures, Vanc/Zosyn. Follow up wound culture with MRSA, continue IV Abx. 2. Left Thigh Abscess: Cellulitis/Abscess. CT LLE w/ heterogeneous indurative changes and subcutaneous tissue of the posterior and lateral proximal to mid thigh, bruising or cellulitis, images reviewed by me. S/p Vanc/ Zosyn as above, continue w/ IV Abx, follow up cultures with MRSA. Discontinue Rocephin. Stable status post I ND, wound VAC per neurosurgery 3. Dehydration: GFR 69, BUN 21, Creatinine normal. Improved discontinue IV fluids 4. Anemia: Chronic. Hgb 9.2, previously 9.8 on 03/12/17. Worse secondary to acute blood loss. Transfuse 1 unit packed RBC and repeat CBC in the morning. Will monitor. 5. Abnormal liver function tests acute on chronic. No history of hepatitis. Patient takes Percocet for chronic pain. Negative Tylenol level and hepatitis profile. We'll monitor. Likely contributed by sepsis 6. Hypertension. Continue home medications with hold parameters DVT Prophylaxis: Xarelto Discharge Planning Not stable for discharge Hipolito Mcmillan MD Apr 20, 2017 11:40
[2017-04-20] MEDS ORDERED: SODIUM CHLOR 0.9% 250 ML INJ 250 ML IV ONE (13:00)
[2017-04-20] MEDS: RIVAROXABAN 10 MG TAB PO SCH (13:48)
[2017-04-20] MEDS: SODIUM CHLORIDE 0.9% FLUSH 10 ML FLUSH IV FLUSH SCH ×2 (17:50→21:00)
--- NOTE | 2017-04-20 18:28 | HHI.PR ---
Subjective Subjective Notes no acute issues, no fevers wbc better Objective Vitals/I&O Vital Signs Date Time Temp Pulse Resp B/P (MAP) Pulse Ox O2 Delivery O2 Flow Rate FiO2 04/20/17 17:45 97.7 75 18 130/70 (90) 96 04/20/17 04:03 Room Air 04/19/17 14:50 2 Labs Laboratory Tests Test 04/20/17 07:04 04/20/17 09:36 White Blood Count 9.9 Red Blood Count 2.42 Hemoglobin 7.2 Hematocrit 21.9 Mean Corpuscular Volume 90.7 Mean Corpuscular Hemoglobin 29.8 Mean Corpuscular Hemoglobin Concent 32.8 Red Cell Distribution Width 15.0 Platelet Count 278 Mean Platelet Volume 9.3 Neutrophils (%) (Auto) 68.3 Lymphocytes (%) (Auto) 21.8 Monocytes (%) (Auto) 6.6 Eosinophils (%) (Auto) 2.8 Basophils (%) (Auto) 0.5 Neutrophils # (Auto) 6.8 Lymphocytes # (Auto) 2.2 Monocytes # (Auto) 0.7 Eosinophils # (Auto) 0.3 Basophils # (Auto) 0.0 CBC Comment DIFF FINAL Differential Comment Blood Urea Nitrogen 10 Creatinine 0.71 Random Glucose 85 Calcium Level 8.9 Magnesium Level 1.9 Sodium Level 143 Potassium Level 3.7 Chloride Level 113 Carbon Dioxide Level 21.9 Anion Gap 8 Estimat Glomerular Filtration Rate 84 Hepatitis A IgM Antibody NEGATIVE Hepatitis B Surface Antigen NEGATIVE Hepatitis B Core IgM Antibody NEGATIVE Hepatitis C Antibody NEGATIVE Vancomycin Level Trough 19.2 Date/Time Source Procedure Growth Status 04/18/17 21:16 Blood Peripheral Aerobic Blood Culture - Preliminary NO GROWTH IN 2 DAYS Resulted 04/18/17 21:16 Blood Peripheral Anaerobic Blood Culture - Preliminary NO GROWTH IN 2 DAYS Resulted 04/19/17 03:40 Urine Catheterized Urine Urine Culture - Preliminary NO GROWTH IN 24 HOURS. Resulted 04/19/17 13:49 Wound Thigh Fungal Smear - Final NO FUNGAL ELEMENTS SEEN. Resulted 04/19/17 13:49 Wound Thigh Fungal Culture Pending Resulted Extremities: Other (bilateral casts in place left thigh abscess with vac good seal) A/P Assessment and Plan s/p I and D with vac to LLE abscess PLAN abx diet vac to sxn, will remove sunday and start wet to drys Lennox Simon MD Apr 20, 2017 18:28
[2017-04-21 04:00] VITALS: BP 127/75; PULSE 82; RESP 16; TEMP 97.8; O2SAT 92
[2017-04-21] MEDS: CHLORHEXIDINE GLUCONATE 2 % 1 PACK (2 CLOTHS) TOP SCH (04:00)
[2017-04-21 08:00] VITALS: PULSE 74
[2017-04-21 08:07] VITALS: BP 140/81; PULSE 76; RESP 17; TEMP 98.2; O2SAT 99
[2017-04-21 08:41] LABS: AUTOMATED NEUTROPHIL # 5.1 TH/MM3 (1.8-7.7); BASOPHIL % 0.6 % (0.0-2.0); EOSINOPHIL # 0.4 TH/MM3 (0-0.4); EOSINOPHIL % 5.1 % (0.0-4.0); HEMATOCRIT 29.5 % (35.0-46.0); HEMOGLOBIN 9.9 GM/DL (11.6-15.3); LYMPH % 22.5 % (9.0-44.0); LYMPHOCYTE # 1.8 TH/MM3 (1.0-4.8); MEAN CELL VOLUME 90.1 FL (80.0-100.0); MEAN CORPUSCULAR HEMOGLOBIN 30.2 PG (27.0-34.0); MEAN CORPUSCULAR HGB CONC 33.5 % (32.0-36.0); MEAN PLATELET VOLUME 8.8 FL (7.0-11.0); MONO % 7.8 % (0.0-8.0); MONOCYTE # 0.6 TH/MM3 (0-0.9); PLATELET COUNT 375 TH/MM3 (150-450); RED BLOOD COUNT 3.27 MIL/MM3 (4.00-5.30); RED CELL DISTRIBUTION WIDTH 14.9 % (11.6-17.2); WHITE BLOOD COUNT 7.9 TH/MM3 (4.0-11.0)
[2017-04-21] MEDS: PANTOPRAZOLE SOD 40 MG DELAYED RELEASE TAB PO SCH (09:04)
[2017-04-21] MEDS: QUEtiapine FUMARATE 25 MG TAB PO SCH ×2 (09:04→20:17)
[2017-04-21] MEDS: SERTRALINE HCL 100 MG TAB PO SCH (09:05)
[2017-04-21] MEDS: DOCUSATE SODIUM 50 MG/SENNA 8.6 MG TAB PO SCH ×2 (09:05→20:17)
[2017-04-21] MEDS: buPROPion HCL 150 MG SUSTAINED RELEASE TAB PO SCH ×2 (09:05→20:16)
[2017-04-21] MEDS: RIVAROXABAN 10 MG TAB PO SCH (09:05)
[2017-04-21] MEDS: VANCOMYCIN 1,000 MG/NS 250 ML IV SCH ×2 (09:08)
[2017-04-21 09:14] LABS: BICARBONATE 22.1 MEQ/L (21.0-32.0); CALCIUM 9.2 MG/DL (8.5-10.1); CREATININE 0.73 MG/DL (0.50-1.00); MAGNESIUM 1.8 MG/DL (1.5-2.5)
[2017-04-21] MEDS: MORPHINE SULFATE 4 MG/ML INJ IV PUSH PRN ×4 (09:17→20:18)
[2017-04-21] MEDS: LISINOPRIL 10 MG TAB PO SCH (09:17)
[2017-04-21 10:48] LABS: BANDS 13 % (0-6); BASOPHILS 1 % (0-2); CORRECTED NUCLEATED RBC 1 /100 WBC (0-0); LYMPHOCYTES 15 % (9-44); METAMYELOCYTES 1 % (0-1); MONOCYTES 6 % (0-8); NEUTROPHIL # MANUAL DIFF 5.8 TH/MM3 (1.8-7.7); NUCLEATED RED BLOOD CELL 1 (0-0); POLYS (SEG NEUTROPHILS) 60 % (16-70)
[2017-04-21 12:07] VITALS: BP 147/80; PULSE 95; RESP 17; TEMP 97.9; O2SAT 98
[2017-04-21] MEDS: SODIUM CHLORIDE 0.9% FLUSH 10 ML FLUSH IV FLUSH SCH ×2 (13:16→20:26)
--- NOTE | 2017-04-21 13:16 | HHI.PR ---
Subjective Remarks Follow-up left thigh abscess. She is doing okay. Discussed with general surgery possible discharge in the morning after wound evaluation. Discussed with RN Objective Vitals Vital Signs Date Time Temp Pulse Resp B/P (MAP) Pulse Ox O2 Delivery O2 Flow Rate FiO2 04/21/17 08:07 98.2 76 17 140/81 (100) 99 04/21/17 04:06 Room Air 04/21/17 04:00 97.8 82 16 127/75 (92) 92 04/21/17 00:00 Room Air 04/20/17 21:21 97.6 80 18 127/68 98 04/20/17 20:14 87 04/20/17 20:00 98.1 84 16 157/77 (103) 100 04/20/17 20:00 Room Air 04/20/17 17:45 97.7 75 18 130/70 (90) 96 04/20/17 16:00 98.3 90 18 98/51 (67) 96 I/O 04/20/17 04/20/17 04/20/17 04/21/17 04/21/17 04/21/17 07:00 15:00 23:00 07:00 15:00 23:00 Intake Total 1783 ml 100 ml 1675 ml Output Total 0 ml 2000 ml Balance 1783 ml 100 ml -325 ml Intake Oral 90 ml 720 ml IV Total 1693 ml 100 ml 500 ml Packed Cells 400 ml Blood Product IV Normal Saline Flush 55 ml Output Urine Total 0 ml 2000 ml # Bowel Movements 0 Result Diagram: 04/21/17 0800 04/21/17 08 Objective Remarks GENERAL: Middle-aged white female in distress secondary to pain HEENT: PERRLA, EOMI. No scleral icterus or conjunctival pallor. No lid lag or facial droop. CARDIOVASCULAR: Regular rate and rhythm. No obvious murmurs to auscultation. No chest tenderness to palpation. RESPIRATORY: No obvious rhonchi or wheezing. Clear to auscultation. Breath sounds equal bilaterally. GASTROINTESTINAL: Abdomen soft, non-tender, nondistended. BS normal. MUSCULOSKELETAL: Extremities without clubbing, cyanosis, or edema. No obvious deformities. Left thigh with wound VAC. RLE boot NEUROLOGICAL: Awake, alert and oriented x4. No focal neurologic deficits. Moving both upper and lower extremities spontaneously. No significant change in PE from previous Procedures I and D of left thigh abscess A/P Problem List: (1) Sepsis ICD Code: A41.9 - Sepsis Status: Acute (2) Thigh abscess ICD Code: L02.419 - Cutaneous abscess of limb, unspecified (3) Dehydration ICD Code: E86.0 - Dehydration (4) Anemia ICD Code: D64.9 - Anemia, unspecified Assessment and Plan 1. Sepsis: Temp 101.1, HR 96, WBC 13.5, Source-Left Thigh Cellulitis/Abscess, s/p Blood Cultures, Vanc/Zosyn. Follow up wound culture with MRSA. Sepsis resolved. Switch to by mouth Bactrim 2. Left Thigh Abscess: Cellulitis/Abscess. CT LLE w/ heterogeneous indurative changes and subcutaneous tissue of the posterior and lateral proximal to mid thigh, bruising or cellulitis, images reviewed by me. S/p Vanc/ Zosyn as above follow up cultures with MRSA. Stable status post I ND, wound VAC per general surgery 3. Dehydration: GFR 69, BUN 21, Creatinine normal. Improved discontinue IV fluids 4. Anemia: Chronic. Hgb 9.2, previously 9.8 on 03/12/17. Improved status post packed RBC.. 5. Abnormal liver function tests acute on chronic. No history of hepatitis. Patient takes Percocet for chronic pain. Negative Tylenol level and hepatitis profile. We'll monitor. Likely contributed by sepsis 6. Hypertension. Continue home medications with hold parameters DVT Prophylaxis: Xarelto Discharge Planning Possible discharge in the morning Hipolito Mcmillan MD Apr 21, 2017 13:16
[2017-04-21] MEDS ORDERED: SULF1TAB23 PO (13:19)
--- NOTE | 2017-04-21 13:20 | HHI.DCPOC ---
Discharge Care Plan Diagnosis: (1) Thigh abscess Your Health Problems Are: Difficulty with ADL Exercise Tolerance Goals to Promote Your Health * To prevent worsening of your condition and complications * To maintain your health at the optimal level Directions to Meet Your Goals Take your medications as prescribed Follow your dietary instruction Follow activity as directed Keep your appointments as scheduled Take your immunizations and boosters as scheduled If your symptoms worsen call your PCP, if no PCP go to Urgent Care Center or Emergency Room Smoking is Dangerous to Your Health. Avoid second hand smoke Call the 24-hour hour crisis hotline for domestic abuse at Hipolito Mcmillan MD Apr 21, 2017 13:20
--- NOTE | 2017-04-21 13:20 | HHI.FF ---
Face to Face Verification Diagnosis: (1) Ankle fracture, bimalleolar, closed (2) Thigh abscess Physical Therapy Order: Evaluate and Treat, Improve ambulation, Strength and gait training Home Health Nursing Order: Medical education Signs/symptoms of disease process Medication education-adverse effect Wound care and dressing changes Nursing assessment with vital signs I have seen patient Lilima Leger on 04/21/17. My clinical findings support the need for the requested home health care services because: Deconditioned w/ increased weakness I certify that my clinical findings support that this patient is homebound because: Unsafe to leave home unassisted Hipolito Mcmillan MD Apr 21, 2017 13:20
--- NOTE | 2017-04-21 13:20 | HHI.DCPOC ---
Discharge Care Plan Diagnosis: (1) Thigh abscess Your Health Problems Are: Difficulty with ADL Exercise Tolerance Goals to Promote Your Health * To prevent worsening of your condition and complications * To maintain your health at the optimal level Directions to Meet Your Goals Take your medications as prescribed Follow your dietary instruction Follow activity as directed Keep your appointments as scheduled Take your immunizations and boosters as scheduled If your symptoms worsen call your PCP, if no PCP go to Urgent Care Center or Emergency Room Smoking is Dangerous to Your Health. Avoid second hand smoke Call the 24-hour hour crisis hotline for domestic abuse at Hipolito Mcmillan MD Apr 21, 2017 13:20
--- NOTE | 2017-04-21 13:20 | HHI.DCPOC ---
Discharge Care Plan Diagnosis: (1) Thigh abscess Your Health Problems Are: Difficulty with ADL Exercise Tolerance Goals to Promote Your Health * To prevent worsening of your condition and complications * To maintain your health at the optimal level Directions to Meet Your Goals Take your medications as prescribed Follow your dietary instruction Follow activity as directed Keep your appointments as scheduled Take your immunizations and boosters as scheduled If your symptoms worsen call your PCP, if no PCP go to Urgent Care Center or Emergency Room Smoking is Dangerous to Your Health. Avoid second hand smoke Call the 24-hour hour crisis hotline for domestic abuse at Hipolito Mcmillan MD Apr 21, 2017 13:20
--- NOTE | 2017-04-21 13:56 | HHI.PR ---
Subjective Subjective Notes feels well Objective Vitals/I&O Vital Signs Date Time Temp Pulse Resp B/P (MAP) Pulse Ox O2 Delivery O2 Flow Rate FiO2 04/21/17 08:07 98.2 76 17 140/81 (100) 99 04/21/17 04:06 Room Air 04/19/17 14:50 2 Labs Laboratory Tests Test 04/21/17 08:00 White Blood Count 7.9 Red Blood Count 3.27 Hemoglobin 9.9 Hematocrit 29.5 Mean Corpuscular Volume 90.1 Mean Corpuscular Hemoglobin 30.2 Mean Corpuscular Hemoglobin Concent 33.5 Red Cell Distribution Width 14.9 Platelet Count 375 Mean Platelet Volume 8.8 Neutrophils (%) (Auto) 64.0 Lymphocytes (%) (Auto) 22.5 Monocytes (%) (Auto) 7.8 Eosinophils (%) (Auto) 5.1 Basophils (%) (Auto) 0.6 Neutrophils # (Auto) 5.1 Lymphocytes # (Auto) 1.8 Monocytes # (Auto) 0.6 Eosinophils # (Auto) 0.4 Basophils # (Auto) 0.0 CBC Comment AUTO DIFF Differential Total Cells Counted 100 Neutrophils % (Manual) 60 Band Neutrophils % 13 Lymphocytes % 15 Monocytes % 6 Eosinophils % 4 Basophils % 1 Neutrophils # (Manual) 5.8 Metamyelocytes 1 Nucleated Red Blood Cells 1 Differential Comment AUTO DIFF CONFIRMED Platelet Estimate NORMAL Platelet Morphology Comment NORMAL Red Cell Morphology Comment NORMAL Blood Urea Nitrogen 6 Creatinine 0.73 Random Glucose 91 Calcium Level 9.2 Magnesium Level 1.8 Sodium Level 144 Potassium Level 3.5 Chloride Level 112 Carbon Dioxide Level 22.1 Anion Gap 10 Estimat Glomerular Filtration Rate 81 Date/Time Source Procedure Growth Status 04/18/17 21:16 Blood Peripheral Aerobic Blood Culture - Preliminary NO GROWTH IN 3 DAYS Resulted 04/18/17 21:16 Blood Peripheral Anaerobic Blood Culture - Preliminary NO GROWTH IN 3 DAYS Resulted 04/19/17 03:40 Urine Catheterized Urine Urine Culture - Final NO GROWTH IN 48 HOURS. Complete 04/19/17 13:49 Wound Thigh Fungal Smear - Final NO FUNGAL ELEMENTS SEEN. Resulted 04/19/17 13:49 Wound Thigh Fungal Culture Pending Resulted Narrative Exam VAC in tact and functioning well left gluteal wound A/P Assessment and Plan 62yo female s/o ID gluteal abscess, VAC inplace DC VAC Sunday and assess wound, if clean, can dress with wet to dry and DC home with HH Jose Wilcox MD Apr 21, 2017 13:56
[2017-04-21] MEDS: SULFAMETHOXAZOLE-TRIMETHOPRIM DS 800-160 MG TAB PO SCH ×2 (14:37→20:17)
[2017-04-21 16:07] VITALS: BP 138/88; PULSE 103; RESP 17; TEMP 97.7; O2SAT 99
[2017-04-21 20:00] VITALS: BP 154/84; PULSE 97; RESP 20; TEMP 98; O2SAT 98
[2017-04-22] VITALS: BP 132/74; PULSE 93; RESP 20; TEMP 97.7; O2SAT 96
[2017-04-22] MEDS: MORPHINE SULFATE 4 MG/ML INJ IV PUSH PRN ×6 (00:29→20:08)
[2017-04-22 04:00] VITALS: BP 150/97; PULSE 90; RESP 20; TEMP 98.1; O2SAT 99
[2017-04-22] MEDS: CHLORHEXIDINE GLUCONATE 2 % 1 PACK (2 CLOTHS) TOP SCH (04:00)
[2017-04-22 08:07] VITALS: BP 137/69; PULSE 83; RESP 18; TEMP 98; O2SAT 95
[2017-04-22] MEDS: buPROPion HCL 150 MG SUSTAINED RELEASE TAB PO SCH ×2 (08:39→20:03)
[2017-04-22] MEDS: PANTOPRAZOLE SOD 40 MG DELAYED RELEASE TAB PO SCH (08:39)
[2017-04-22] MEDS: SULFAMETHOXAZOLE-TRIMETHOPRIM DS 800-160 MG TAB PO SCH ×2 (08:39→20:03)
[2017-04-22] MEDS: QUEtiapine FUMARATE 25 MG TAB PO SCH ×2 (08:39→20:03)
[2017-04-22] MEDS: LISINOPRIL 10 MG TAB PO SCH (08:39)
[2017-04-22] MEDS: RIVAROXABAN 10 MG TAB PO SCH (08:39)
[2017-04-22] MEDS: DOCUSATE SODIUM 50 MG/SENNA 8.6 MG TAB PO SCH ×2 (08:40→20:03)
[2017-04-22] MEDS: SERTRALINE HCL 100 MG TAB PO SCH (08:40)
[2017-04-22] MEDS: SODIUM CHLORIDE 0.9% FLUSH 10 ML FLUSH IV FLUSH SCH ×2 (08:44→20:04)
[2017-04-22] MEDS ORDERED: PHARMACY ORDERED LAB ONE (09:45)
[2017-04-22] MEDS ORDERED: LISI10TA3 PO (09:58)
--- NOTE | 2017-04-22 09:59 | HHI.DS ---
Discharge Summary Admission Date Apr 18, 2017 at 23:35 Discharge Date: Apr 23, 2017 Admitting Diagnosis (1) Sepsis ICD Code: A41.9 - Sepsis Diagnosis: Principal Status: Acute (2) Thigh abscess ICD Code: L02.419 - Cutaneous abscess of limb, unspecified Diagnosis: Principal (3) Dehydration ICD Code: E86.0 - Dehydration Diagnosis: Principal (4) Anemia ICD Code: D64.9 - Anemia, unspecified Diagnosis: Principal Procedures I and D of left thigh abscess Brief History - From Admission This is a 62-year-old female with a PMH of Anxiety, Depression, HTN and Hyperlipidemia who was brought to the ER by EMS secondary to increased lethargy and fever. Recent admit 03/07-03/13/17 for fall w/ left ankle fracture s/p ORIF Left Ankle by Dr. Huggins on 03/08/17. Today, noted pt to be more lethargic and called EMS, Temp 101.5, BP 80's systolic per EMS, s/p IVF. Per pt she's had intermittent fever for the last few days. Notes left thigh swelling and pain x2 wks. On arrival, BP 97/66, HR 96, O2 sat 99% on RA, Temp 1.1 rectal. WBC 13.5. Hemoglobin 9.2. CXR with no acute findings. Tib/Fib X- ray w/ no acute findings. CT LLE w/ indurated changes in subcutaneous tissues of posterior and lateral proximal to mid thigh, bruising vs cellulitis. S/p Vanc/Zosyn and Blood Cultures in ER. CBC/BMP: 04/21/17 0800 04/21/17 0800 Significant Findings Laboratory Tests Test 04/20/17 07:04 04/20/17 09:36 04/21/17 08:00 Red Blood Count 2.42 MIL/MM3 (4.00-5.30) 3.27 MIL/MM3 (4.00-5.30) Hemoglobin 7.2 GM/DL (11.6-15.3) 9.9 GM/DL (11.6-15.3) Hematocrit 21.9 % (35.0-46.0) 29.5 % (35.0-46.0) Chloride Level 113 MEQ/L (98-107) 112 MEQ/L (98-107) Estimat Glomerular Filtration Rate 84 ML/MIN (>89) 81 ML/MIN (>89) Vancomycin Level Trough 19.2 MCG/ML (5.0-10.0) Eosinophils (%) (Auto) 5.1 % (0.0-4.0) Band Neutrophils % 13 % (0-6) Nucleated Red Blood Cells 1 /100 WBC (0-0) Blood Urea Nitrogen 6 MG/DL (7-18) Imaging Last Impressions Chest X-Ray 04/18/172054 Signed Impressions: Service Date/Time: Tuesday, April 18, 2017 21:08 - CONCLUSION: No acute disease. Uday Estes MD Tibia/Fibula X-Ray 04/18/17 0000 Signed Impressions: Service Date/Time: Tuesday, April 18, 2017 21:11 - CONCLUSION: No new acute injury. Uday Estes MD Lower Extremity CT 04/18/17 0000 Signed Impressions: Service Date/Time: Tuesday, April 18, 2017 22:33 - CONCLUSION: Heterogeneous indurated changes in the subcutaneous tissues of the posterior and lateral proximal to mid thigh which may be bruising or cellulitic change. Correlation recommended Uday Estes MD PE at Discharge GENERAL: Middle-aged white female in distress secondary to pain HEENT: PERRLA, EOMI. No scleral icterus or conjunctival pallor. No lid lag or facial droop. CARDIOVASCULAR: Regular rate and rhythm. No obvious murmurs to auscultation. No chest tenderness to palpation. RESPIRATORY: No obvious rhonchi or wheezing. Clear to auscultation. Breath sounds equal bilaterally. GASTROINTESTINAL: Abdomen soft, non-tender, nondistended. BS normal. MUSCULOSKELETAL: Extremities without clubbing, cyanosis, or edema. No obvious deformities. Left thigh with wound VAC. RLE boot NEUROLOGICAL: Awake, alert and oriented x4. No focal neurologic deficits. Moving both upper and lower extremities spontaneously. No significant change in PE from previous Hospital Course 1. Sepsis: Temp 101.1, HR 96, WBC 13.5, Source-Left Thigh Cellulitis/Abscess, s/p Blood Cultures, Vanc/Zosyn. Follow up wound culture with MRSA. Sepsis resolved. Switch to by mouth Bactrim 2. Left Thigh Abscess: Cellulitis/Abscess. CT LLE w/ heterogeneous indurative changes and subcutaneous tissue of the posterior and lateral proximal to mid thigh, bruising or cellulitis, images reviewed by me. S/p Vanc/ Zosyn as above follow up cultures with MRSA. Stable status post I ND, wound VAC dc and started wet-to-dry dressing per general surgery. Pain management. Counseled regarding narcotics. Requesting additional Percocet patient only has 12 pills left 3. Dehydration: GFR 69, BUN 21, Creatinine normal. Improved discontinue IV fluids 4. Anemia: Chronic. Hgb 9.2, previously 9.8 on 03/12/17. Improved status post packed RBC.. 5. Abnormal liver function tests acute on chronic. No history of hepatitis. Patient takes Percocet for chronic pain. Negative Tylenol level and hepatitis profile. Improving likely contributed by sepsis 6. Hypertension. Suboptimal control. Increased lisinopril to 20 mg daily DVT Prophylaxis: Xarelto Discharge held one more day pending approval of insurance for home care PT and visiting nurse Pt Condition on Discharge: Stable Discharge Disposition: Disch w/ Home Health Serv Discharge Time: > 30 minutes Discharge Instructions DIET: Follow Instructions for: Heart Healthy Diet Activities you can perform: Regular-No Restrictions Activities to Avoid: Driving Follow up Referrals: Orthopedics - 1 Week PCP Follow-up - 1 Week Surgical - 1 Week New Medications: Lisinopril (Lisinopril) 10 Mg Tab 20 MG PO DAILY for Blood Pressure Management, #60 TAB Oxycodone (Oxycodone) 5 Mg Tab 10 MG PO Q6H PRN for PAIN SCALE 6 TO 10, #20 TAB Sulfamethoxazole-Trimethoprim (Sulfamethoxazole-Trimethoprim) 800-160 Mg Tab 1 TAB PO Q12HR for Infection, #20 TAB Continued Medications: Bupropion HCl ER 24 HR (Wellbutrin Xl 24 HR) 300 Mg Tab 300 MG PO DAILY for Control Depression, TAB 0 Refills Pantoprazole (Pantoprazole) 40 Mg Tab 40 MG PO DAILY for health, #30 TAB 0 Refills Quetiapine (Quetiapine) 25 Mg Tab 25 MG PO BID for Psychosis, #60 TAB Rivaroxaban (Xarelto) 10 Mg Tab 10 MG PO DAILY for Blood Clot Prevention, #35 TAB 0 Refills Sertraline (Sertraline) 100 Mg Tab 150 MG PO DAILY, #30 TAB 0 Refills Discontinued Medications: Hydrochlorothiazide (Hydrochlorothiazide) 12.5 Mg Cap 12.5 MG PO DAILY, #30 CAP 0 Refills Lisinopril (Lisinopril) 10 Mg Tab 10 MG PO DAILY, #30 TAB 0 Refills Oxycodone-Acetaminophen (Percocet) 10-325 mg Tab 1 TAB PO Q6H PRN for PAIN, #90 TAB 0 Refills Potassium Chloride ER (Klor-Con 10) 10 Meq Tab 10 MEQ PO DAILY for Electrolyte Replacement, #30 TAB 0 Refills Hipolito Mcmillan MD Apr 22, 2017 09:59
[2017-04-22 10:37] LABS: ALBUMIN 2.4 GM/DL (3.4-5.0); ALT (GPT) 46 U/L (10-53); AST (GOT) 15 U/L (15-37); BICARBONATE 23.3 MEQ/L (21.0-32.0); BLOOD UREA NITROGEN 4 MG/DL (7-18); CALCIUM 9.3 MG/DL (8.5-10.1); CHLORIDE 111 MEQ/L (98-107); CREATININE 0.74 MG/DL (0.50-1.00); GLOMERULAR FILTRATION RATE 80 ML/MIN (>89); GLUCOSE,RANDOM 94 MG/DL (74-106); MAGNESIUM 1.7 MG/DL (1.5-2.5); SODIUM (NA) 143 MEQ/L (136-145)
[2017-04-22 10:39] LABS: ALKALINE PHOSPHATASE 106 U/L (45-117); TOTAL BILIRUBIN ADULT 0.2 MG/DL (0.2-1.0); TOTAL PROTEIN 6.2 GM/DL (6.4-8.2)
[2017-04-22] MEDS ORDERED: OXYC-392 PO (11:56)
--- NOTE | 2017-04-22 11:56 | HHI.PR ---
Subjective Remarks Follow-up left thigh abscess. She is doing okay awaiting general surgery evaluation the wound today. Discussed with RN Objective Vitals Vital Signs Date Time Temp Pulse Resp B/P (MAP) Pulse Ox O2 Delivery O2 Flow Rate FiO2 04/22/17 08:07 98.0 83 18 137/69 (91) 95 04/22/17 08:00 96 Room Air 04/22/17 04:00 98.1 90 20 150/97 (114) 99 04/22/17 00:00 97.7 93 20 132/74 (93) 96 04/21/17 20:00 98.0 97 20 154/84 (107) 98 04/21/17 19:45 Room Air 04/21/17 16:07 97.7 103 17 138/88 (105) 99 04/21/17 12:07 97.9 95 17 147/80 (102) 98 I/O 04/21/17 04/21/17 04/21/17 04/22/17 04/22/17 04/22/17 07:00 15:00 23:00 07:00 15:00 23:00 Intake Total 250 ml 360 ml 800 ml Balance 250 ml 360 ml 800 ml Intake Oral 360 ml 800 ml IV Total 250 ml # Voids 5 2 # Bowel Movements 1 Result Diagram: 04/21/17 0800 04/22/17 0915 Objective Remarks GENERAL: Middle-aged white female in distress secondary to pain HEENT: PERRLA, EOMI. No scleral icterus or conjunctival pallor. No lid lag or facial droop. CARDIOVASCULAR: Regular rate and rhythm. No obvious murmurs to auscultation. No chest tenderness to palpation. RESPIRATORY: No obvious rhonchi or wheezing. Clear to auscultation. Breath sounds equal bilaterally. GASTROINTESTINAL: Abdomen soft, non-tender, nondistended. BS normal. MUSCULOSKELETAL: Extremities without clubbing, cyanosis, or edema. No obvious deformities. Left thigh with wound VAC. RLE boot NEUROLOGICAL: Awake, alert and oriented x4. No focal neurologic deficits. Moving both upper and lower extremities spontaneously. Procedures I and D of left thigh abscess A/P Problem List: (1) Sepsis ICD Code: A41.9 - Sepsis Status: Acute (2) Thigh abscess ICD Code: L02.419 - Cutaneous abscess of limb, unspecified (3) Dehydration ICD Code: E86.0 - Dehydration (4) Anemia ICD Code: D64.9 - Anemia, unspecified Assessment and Plan 1. Sepsis: Temp 101.1, HR 96, WBC 13.5, Source-Left Thigh Cellulitis/Abscess, s/p Blood Cultures, Vanc/Zosyn. Follow up wound culture with MRSA. Sepsis resolved. Switch to by mouth Bactrim 2. Left Thigh Abscess: Cellulitis/Abscess. CT LLE w/ heterogeneous indurative changes and subcutaneous tissue of the posterior and lateral proximal to mid thigh, bruising or cellulitis, images reviewed by me. S/p Vanc/ Zosyn as above follow up cultures with MRSA. Stable status post I ND, wound VAC per general surgery. Plan to discontinue wound VAC today. Pain management. Counseled regarding narcotics. Requesting additional Percocet patient only has 12 pills left 3. Dehydration: GFR 69, BUN 21, Creatinine normal. Improved discontinue IV fluids 4. Anemia: Chronic. Hgb 9.2, previously 9.8 on 03/12/17. Improved status post packed RBC.. 5. Abnormal liver function tests acute on chronic. No history of hepatitis. Patient takes Percocet for chronic pain. Negative Tylenol level and hepatitis profile. Improving likely contributed by sepsis 6. Hypertension. Suboptimal control. Increase lisinopril to 20 mg daily DVT Prophylaxis: Xarelto Discharge Planning Possible discharge today Hipolito Mcmillan MD Apr 22, 2017 11:55
[2017-04-22] MEDS ORDERED: POTASSIUM CHLORIDE 20 MEQ CONTROLLED RELEASE TAB PO ONE (12:00)
[2017-04-22 12:07] VITALS: BP 138/84; PULSE 92; RESP 18; TEMP 98.4; O2SAT 97
[2017-04-22] MEDS ORDERED: LIDOCAINE 2% JELLY 5 ML TUBE OTHER SCH (14:30)
--- NOTE | 2017-04-22 14:37 | HHI.PR ---
cc: Joyce Mcfarland MD Subjective Subjective Notes DAILY PROGRESS NOTE FOR SURGICAL ATTENDING, DR. JOYCE MCFARLAND Doing well tolerating diet Objective Vitals/I&O Vital Signs Date Time Temp Pulse Resp B/P (MAP) Pulse Ox O2 Delivery O2 Flow Rate FiO2 04/22/17 08:07 98.0 83 18 137/69 (91) 95 04/22/17 08:00 Room Air 04/19/17 14:50 2 Labs Laboratory Tests Test 04/22/17 09:15 Blood Urea Nitrogen 4 Creatinine 0.74 Random Glucose 94 Total Protein 6.2 Albumin 2.4 Calcium Level 9.3 Magnesium Level 1.7 Alkaline Phosphatase 106 Aspartate Amino Transf (AST/SGOT) 15 Alanine Aminotransferase (ALT/SGPT) 46 Total Bilirubin 0.2 Sodium Level 143 Potassium Level 3.3 Chloride Level 111 Carbon Dioxide Level 23.3 Anion Gap 9 Estimat Glomerular Filtration Rate 80 Date/Time Source Procedure Growth Status 04/18/17 21:16 Blood Peripheral Aerobic Blood Culture - Preliminary NO GROWTH IN 4 DAYS Resulted 04/18/17 21:16 Blood Peripheral Anaerobic Blood Culture - Preliminary NO GROWTH IN 4 DAYS Resulted 04/19/17 03:40 Urine Catheterized Urine Urine Culture - Final NO GROWTH IN 48 HOURS. Complete 04/19/17 13:49 Wound Thigh Fungal Smear - Final NO FUNGAL ELEMENTS SEEN. Resulted 04/19/17 13:49 Wound Thigh Fungal Culture Pending Resulted Radiology Last Impressions Chest X-Ray 04/18/172054 Signed Impressions: Service Date/Time: Tuesday, April 18, 2017 21:08 - CONCLUSION: No acute disease. Uday Estes MD Tibia/Fibula X-Ray 04/18/17 0000 Signed Impressions: Service Date/Time: Tuesday, April 18, 2017 21:11 - CONCLUSION: No new acute injury. Uday Estes MD Lower Extremity CT 04/18/17 0000 Signed Impressions: Service Date/Time: Tuesday, April 18, 2017 22:33 - CONCLUSION: Heterogeneous indurated changes in the subcutaneous tissues of the posterior and lateral proximal to mid thigh which may be bruising or cellulitic change. Correlation recommended Uday Estes MD Extremities: Other (VAC dressing removed the sponge of the VAC dressing was very adherent to the surrounding tissues could not be removed) Narrative Exam Small dime-sized defect with VAC dressing A/P Assessment and Plan VAC dressing removed however the sponge was very adherent to the surrounding tissues Instructed the nurses to soak with saline and apply Xylocaine jelly for the discomfort. Wet-to-dry dressings to follow Attending Statement NOTE FOR SURGICAL ATTENDING, DR. JOYCE MCFARLAND I attest that I had a [id number] encounter with the patient on the same day, and personally performed and documented my assessment and findings in the medical record. The following services were provided during this hospital visit: Chart data review, vital sign assessments/reviewing monitor data Review of consultations notes if present. Medication orders/review and/or management Ordering and/or reviewing lab tests Ordering and/or interpreting/reviewing x-rays and/or diagnostic studies Care of the patient and discussion of the patient with the care team Documentation time To help prompt me to consider important information that might be impacting today's encounter and assessment, information from prior notes written by myself or my colleagues may have been "brought forward/copy and pasted" into today's note. Joyce Mcfarland MD Apr 22, 2017 14:37
[2017-04-22 16:07] VITALS: BP 136/73; PULSE 95; RESP 18; TEMP 98.4; O2SAT 97
[2017-04-22 20:00] VITALS: BP 121/72; PULSE 98; RESP 18; TEMP 98; O2SAT 98
[2017-04-23] VITALS: BP 132/67; PULSE 99; RESP 18; TEMP 98.1; O2SAT 98
[2017-04-23] MEDS: MORPHINE SULFATE 4 MG/ML INJ IV PUSH PRN ×3 (00:21→11:31)
[2017-04-23 04:00] VITALS: BP 112/58; PULSE 80; RESP 18; TEMP 98.5; O2SAT 95
[2017-04-23] MEDS: CHLORHEXIDINE GLUCONATE 2 % 1 PACK (2 CLOTHS) TOP SCH (04:00)
[2017-04-23 08:00] VITALS: BP 141/70; PULSE 81; RESP 18; TEMP 98.6; O2SAT 96
[2017-04-23] MEDS ORDERED: LISINOPRIL 20 MG TAB PO SCH (09:00)
[2017-04-23] MEDS: PANTOPRAZOLE SOD 40 MG DELAYED RELEASE TAB PO SCH (09:05)
[2017-04-23] MEDS: buPROPion HCL 150 MG SUSTAINED RELEASE TAB PO SCH (09:07)
[2017-04-23] MEDS: SERTRALINE HCL 100 MG TAB PO SCH (09:07)
[2017-04-23] MEDS: QUEtiapine FUMARATE 25 MG TAB PO SCH (09:08)
[2017-04-23] MEDS: RIVAROXABAN 10 MG TAB PO SCH (09:08)
[2017-04-23] MEDS: SULFAMETHOXAZOLE-TRIMETHOPRIM DS 800-160 MG TAB PO SCH (09:08)
[2017-04-23] MEDS: DOCUSATE SODIUM 50 MG/SENNA 8.6 MG TAB PO SCH (09:08)
[2017-04-23] MEDS: SODIUM CHLORIDE 0.9% FLUSH 10 ML FLUSH IV FLUSH SCH (09:08)
--- NOTE | 2017-04-23 11:00 | HHI.PR ---
cc: Lennox Simon MD Subjective Subjective Notes Resting in bed RN at bedside Objective Vitals/I&O Vital Signs Date Time Temp Pulse Resp B/P (MAP) Pulse Ox O2 Delivery O2 Flow Rate FiO2 04/23/17 08:00 98.6 81 18 141/70 (93) 96 04/22/17 19:30 Room Air 04/19/17 14:50 2 Labs Date/Time Source Procedure Growth Status 04/18/17 21:16 Blood Peripheral Aerobic Blood Culture - Preliminary NO GROWTH IN 4 DAYS Resulted 04/18/17 21:16 Blood Peripheral Anaerobic Blood Culture - Preliminary NO GROWTH IN 4 DAYS Resulted 04/19/17 03:40 Urine Catheterized Urine Urine Culture - Final NO GROWTH IN 48 HOURS. Complete 04/19/17 13:49 Wound Thigh Fungal Smear - Final NO FUNGAL ELEMENTS SEEN. Resulted 04/19/17 13:49 Wound Thigh Fungal Culture Pending Resulted Radiology Last Impressions Chest X-Ray 04/18/172054 Signed Impressions: Service Date/Time: Tuesday, April 18, 2017 21:08 - CONCLUSION: No acute disease. Uday Estes MD Tibia/Fibula X-Ray 04/18/17 0000 Signed Impressions: Service Date/Time: Tuesday, April 18, 2017 21:11 - CONCLUSION: No new acute injury. Uday Estes MD Lower Extremity CT 04/18/17 0000 Signed Impressions: Service Date/Time: Tuesday, April 18, 2017 22:33 - CONCLUSION: Heterogeneous indurated changes in the subcutaneous tissues of the posterior and lateral proximal to mid thigh which may be bruising or cellulitic change. Correlation recommended Uday Estes MD Cardiovascular: Regular Lungs: Clear Abdomen: Non-distended, Non-tender Extremities: Other (LEFT leg s/p I&D--- dressing removed---minimal SS drainage ; repacked and dressing placed ) A/P Assessment and Plan 62 year old female s/p I&D LEFT leg -Wound Vac removed -Wet to dry dressing; change BID; okay to shower inbetween dressing changes -HHC -Pain control -GS clear for DC -Follow up with Dr. Simon next week Attending Statement Patient seen at bedside feels better now that vac is removed no fevers ok to d/c home with dressing changes Elsa Rose Apr 23, 2017 11:00 Lennox Simon MD Apr 24, 2017 21:49
[2017-04-23 12:00] VITALS: BP 129/63; PULSE 85; RESP 18; TEMP 98.8; O2SAT 97
== END 2017-04-23 14:54 | disposition home health service (06) | DRG 872 ==
LOC: NEPE 20:41 → NEDA 23:35 → N03B 04-19 05:02 → N04A 04-19 23:47
PROVIDERS: ADMIT Internal Medicine; ATTEND Internal Medicine
PROC: 3E0F7GC Introduction of Other Therapeutic Substance into Respiratory Tract, Via Natural or Artificial Opening (ICD-10-PCS; principal; 2017-04-18)
PROC: 0H9JXZX Drainage of Left Upper Leg Skin, External Approach, Diagnostic (ICD-10-PCS; 2017-04-19)
PROC: 0HDJXZZ Extraction of Left Upper Leg Skin, External Approach (ICD-10-PCS; 2017-04-19)
PROC: 30233N1 Transfusion of Nonautologous Red Blood Cells into Peripheral Vein, Percutaneous Approach (ICD-10-PCS; 2017-04-20)
DX: A41.9 Sepsis, unspecified organism (principal); I10 Essential (primary) hypertension; L02.416 Cutaneous abscess of left lower limb; L03.116 Cellulitis of left lower limb; D64.9 Anemia, unspecified; F10.21 Alcohol dependence, in remission; F32.9 Major depressive disorder, single episode, unspecified; E78.00 Pure hypercholesterolemia, unspecified; K21.9 Gastro-esophageal reflux disease without esophagitis; F41.9 Anxiety disorder, unspecified; E86.0 Dehydration; R94.5 Abnormal results of liver function studies
CPT/HCPCS: 36430; 71010; 73590; 73701; 80048; 80053; 80074; 80202; 80307; 81001; 83605; 83735; 85025; 86403; 86850; 86900; 86901; 86920; 87015; 87040; 87070; 87086; 87102; 87116; 87147; 87186; 87205; 87206; 87641; 93005; 96365; 96367; 96375; J0692; J1885; J2250; J2270; J2370; J2405; J2543; J2710; J3010; J3370; J7030; J7050; P9016; Q9967

== ENCOUNTER 2017-05-03 15:29 | Emergency (ER) | payer BC ==
[~2017-05-03 15:29] MED LIST changes: -HYDR12.57 PO; -KLOR10TA PO; +OXYC-392 PO; -PERC10TA27 PO; +SULF1TAB23 PO
[2017-05-03 16:03] VITALS: BP 124/89; PULSE 99; RESP 16; TEMP 97.6; O2SAT 98
--- NOTE | 2017-05-03 19:02 | PD ---
HPI Chief Complaint: Musculoskeletal Complaint Time Seen by Provider: 18:56 Travel History International Travel<30 days: No Contact w/Intl Traveler<30days: No Traveled to known affect area: No History of Present Illness HPI 62y female complaining of left ankle pain worsening over the last week. States that she had surgery on her left ankle within the last couple of weeks and had a cast removed Sunday. Denies any inciting events. Describes the pain as moderate and aching, worse with movement and palpation to the lateral aspect of ankle. Patient does have full range of motion and normal sensation. Also concerned about a wound on her left upper leg that was drained by Dr. Simon last week. Patient states that she has some green fluid coming out of it and was concerned about a superinfection. Patient received oxycodone from Dr. Simon for this discomfort. She denies fever, chills, chest pain, shortness of breath, abdominal pain, leg pain. PFSH Past Medical History Anxiety: Yes Depression: Yes Cancer: No Cardiovascular Problems: No High Cholesterol: Yes Diabetes: No Endocrine: Yes Gastrointestinal Disorders: Yes GERD: Yes Genitourinary: Yes Headaches: No Hypertension: Yes Immune Disorder: No Implanted Vascular Access Dvce: No Musculoskeletal: Yes (ble fraxctures) Neurologic: No Psychiatric: Yes (some depression and recovering alcoholic ) Reproductive: No Respiratory: No Seizures: No Thyroid Disease: Yes Past Surgical History Other Surgery: No Social History Alcohol Use: No Tobacco Use: No Substance Use: No Allergies-Medications (Allergen,Severity, Reaction): Coded Allergies: No Known Allergies (Unverified , 01/18/17) Reported Meds & Prescriptions Reported Meds & Active Scripts Active Oxycodone (Oxycodone HCl) 5 Mg Tab 10 Mg PO Q6H PRN Lisinopril 10 Mg Tab 20 Mg PO DAILY Sulfamethoxazole-Trimethoprim 800-160 Mg Tab 1 Tab PO Q12HR Xarelto (Rivaroxaban) 10 Mg Tab 10 Mg PO DAILY Quetiapine (Quetiapine Fumarate) 25 Mg Tab 25 Mg PO BID Pantoprazole (Pantoprazole Sodium) 40 Mg Tab 40 Mg PO DAILY Reported Wellbutrin Xl 24 HR (Bupropion HCl) 300 Mg Tab 300 Mg PO DAILY Sertraline (Sertraline HCl) 100 Mg Tab 150 Mg PO DAILY Review of Systems Except as stated in HPI: all other systems reviewed are Neg Physical Exam Narrative GENERAL: Well-nourished, well-developed patient. SKIN: Focused skin assessment warm/dry. Left upper posterior leg- 1-1/2 cm round wound with scant clear discharge. Wound is packed. Non-irritated, non- erythematous. no lymphangiectatic spread. HEAD: Normocephalic. EYES: No scleral icterus. No injection or drainage. NECK: Supple, trachea midline. No JVD or lymphadenopathy. CARDIOVASCULAR: Regular rate and rhythm without murmurs, gallops, or rubs. RESPIRATORY: Breath sounds equal bilaterally. No accessory muscle use. GASTROINTESTINAL: Abdomen soft, non-tender, nondistended. MUSCULOSKELETAL: No cyanosis, or edema. left ankle- healed incisions site, consistent with pt story. No edema, or abnormal ecchymosis. full ROM. Mild TTP to lateral aspect of ankle near talofibular ligament. neurovascualrly intact. BACK: Nontender without obvious deformity. No CVA tenderness. Data Data Last Documented VS Vital Signs Date Time Temp Pulse Resp B/P (MAP) Pulse Ox O2 Delivery O2 Flow Rate FiO2 05/03/17 16:03 97.6 99 16 124/89 (101) 98 Orders Orders Wound Care (05/03/17 19:02) Ed Discharge Order (05/03/17 19:03) MDM Medical Decision Making Medical Screen Exam Complete: Yes Emergency Medical Condition: Yes Differential Diagnosis Left ankle fracture versus nonspecific pain versus sprain Left leg abscess versus cellulitis versus erysipelas versus status post I&D Narrative Course 62y female complaining of left ankle pain worsening over the last week. States that she had surgery on her left ankle within the last couple of weeks and had a cast removed Sunday. Denies any inciting events. Describes the pain as moderate and aching, worse with movement and palpation to the lateral aspect of ankle. Patient does have full range of motion and normal sensation. Also concerned about a wound on her left upper leg that was drained by Dr. Simon last week. Patient states that she has some green fluid coming out of it and was concerned about a superinfection. Patient received oxycodone from Dr. Simon for this discomfort. States she also taking abx as prescribed. She denies fever, chills, chest pain, shortness of breath, abdominal pain, leg pain. Physical exam: No evidence of infectious process posterior left leg. No evidence of recent body changes of left ankle. Pt rather anxious. Poor historian. Imaging deferred at request of patient and not indicated. No inciting events. Skin healing well, no obvious bony involvement at this time. Wound appears in healing stage. She should follow up with her general surgeon and continue antibiotics as prescribed by him. I reassured patient. I explained that what she was experiencing with her ankle was normal and that she should continue the pain medications as prescribed previously. I looked through patient notes regarding her surgery and I&D. She had an ORIF left ankle in the middle of February and I&D performed on left posterior leg . Wound appeared healing well- advised to continue abx as prescribed previously. Pt to follow up with her PCP and specialists within 2-3 days. Diagnosis Primary Impression: Thigh abscess Additional Impression: Left ankle pain Qualified Codes: M25.572 - Pain in left ankle and joints of left foot; G89.29 - Other chronic pain Referrals: General Surgeon Orthopedist Additional Instructions: You likely have ankle pain secondary to recent surgery. Continue take her medications as prescribed by Dr. Simon which will help with the pain of the abscess and ankle. Take your medications as prescribed. Follow-up with your surgeon and orthopedic doctor within 2 days. Follow-up with your primary care physician within 2 days. Return to the emergency department if your symptoms persist or worsen Disposition: 01 DISCHARGE HOME Condition: Stable Krissy Wiseman May 03, 2017 19:02
== END 2017-05-03 19:22 | disposition home or self-care (01) ==
LOC: NEPK 15:29
DX: L02.416 Cutaneous abscess of left lower limb (principal); M25.572 Pain in left ankle and joints of left foot; G89.29 Other chronic pain; I10 Essential (primary) hypertension; E78.00 Pure hypercholesterolemia, unspecified; K21.9 Gastro-esophageal reflux disease without esophagitis; F41.9 Anxiety disorder, unspecified; F32.9 Major depressive disorder, single episode, unspecified; E07.9 Disorder of thyroid, unspecified
CPT/HCPCS: 99282